=== PATIENT | male | born 1955 | race Caucasian/White ===

== ENCOUNTER 2023-06-21 10:49 | Observation (INO) ==
[2023-06-21] MEDS: SODIUM CHLORIDE 0.9% 1,000 ML IV ONE (11:43)
[2023-06-21 11:45] LABS: Albumin Globulin Ratio 1.6 (0.9-2); Albumin Level 4.3 gm/dl (3.4-5.0); BUN Creatinine Ratio 11.1 (10-20); Bilirubin,Total 0.6 mg/dl (0.2-1.0); Calcium 9.2 mg/dl (8.6-10.3); Est GFR (African American) 81.9 ml/min; Est GFR (Non-African American) 70.6 ml/min; Globulin 2.7 gm/dl (2.5-4.0); Magnesium 2.1 mg/dl (1.7-2.4)
--- NOTE | 2023-06-21 11:47 | Emergency Department Note ---
Impression & Plan Syncope, Dizziness, Hyponatremia ED Provider Note NAME: DOMONIQUE MAHER AGE: 68 SEX: M : 1955 ARRIVES VIA: Ambulance INFORMANT: [Patient] ED PROVIDER(S): [Modesto Alfonso MD] CHIEF COMPLAINT: Syncope HISTORY OF PRESENT ILLNESS: The patient is a 68-year-old male who was sitting and having breakfast at a sporting event. He began to feel lightheaded and clammy. This all started about an hour ago. He eventually lost his consciousness and was helped to the ground by a bystander. As per the outpatient records, no pulse could be found and CPR was initiated. As per his , only a few compressions were done. Shortly thereafter, a pulse was felt. The patient woke up on the floor. He denies any chest pain or shortness of breath. He has felt well lately. He does admit to some increased stress the last few months. His mother in March and he has been dealing with the estate. Patient has no history of heart disease. He does have high blood pressure and high cholesterol. He takes medications daily for these 2 issues. He is not on blood thinning agents other than a baby aspirin. The patient did have a sinus infection 2 weeks ago, he was on doxycycline for around 10 days. PMHx/PSHx/Social Hx: See Below PHYSICAL EXAM: GENERAL: Patient is in no acute distress. HEENT: No acute trauma, normocephalic atraumatic, mucous membranes moist, no nasal congestion. NECK: No stridor, no adenopathy, no meningismus, trachea is midline. LUNGS: Clear to auscultation bilaterally, no wheeze, no rhonchi, breath sounds equal. HEART: Subtle systolic murmur, regular rate and rhythm. ABDOMEN: Soft, nontender, no peritonitis. EXTREMITIES: No cyanosis, full range of motion of all the joints without pain or difficulty. NEUROLOGIC: Oriented x 3, no acute motor or sensory deficits, no focal weakness. SKIN: No jaundice, no diaphoresis. DIFFERENTIAL DIAGNOSIS: Vasovagal syncope, IL, anemia, electrolyte imbalance, dehydration, dysrhythmia, among others. EMERGENCY DEPARTMENT PROCEDURES: MEDICAL DECISION MAKING: There is no leukocytosis. A very mild anemia was seen. There was a normal platelet count. No coagulopathy. Sodium was low at 129, no renal failure. No concerning liver enzyme elevation. The patient appeared to be in a euthyroid state. ECG showed a normal sinus rhythm, no dysrhythmia or acute ischemia. Cardiac enzyme testing x 1 is not consistent with acute cardiac injury. Urinalysis does not show infection. COVID, influenza and RSV test were negative. Chest x-ray did not show mediastinal widening, pneumonia or pneumothorax. On exam, the patient was without complaints and resting comfortably. Patient received IV saline, 1 L. The patient presents with a syncopal spell out outside of the hospital. Initially, standard did not feel he had a pulse and they did do a brief round of chest compressions. Given the presentation, given the history prehospital, the patient does require a hospital stay and cardiac monitoring. I spoke with the patient and case management, the on-call hospitalist was consulted. Prior/Outside records/notes reviewed: Today's EMS notes describing his presentation and transport to this hospital. ECG per my interpretation: Indication was syncope. The ECG shows a normal sinus rhythm with some sinus arrhythmia. The rate is 69. There is no ST elevation, no PVCs. The QTc is 409. Continuous Cardiac Monitoring per my interpretation: An order was placed for continuous cardiac monitoring. The monitor shows a rate of 68 with normal sinus rhythm. Imaging/x-ray results per my interpretation: Chest x-ray does not show mediastinal widening, pneumonia or pneumothorax. Chronic Medical/Social conditions affecting care: Care/Management discussed with: Case management and the on-call hospitalist. Level of care consideration(s): After review of the information above and other included data: --I believe the patient requires escalation of care to admission DISPOSITION: Admission Past Med/Surg History Medical History Ocular hypertension Hypotestosteronism Left ankle swelling BPH (benign prostatic hyperplasia) Idiopathic small fiber sensory neuropathy Hypercholesteremia Hypertension Social History Smoking Status: Never smoker Hx Alcohol Use: No Hx Substance Use: No Preferred Language: [place] Communication Ability: Effective Superintendent [employer] Storage Required: No Beliefs That Will Affect Care: None Current Living Situation: Spouse Other Information That Helps Us Care for You: No Feels Safe at Home: Yes Safety Concerns: Feels Safe At This Time Assistive Devices: Glasses Allergies Allergies Allergy/AdvReac Type Severity Reaction Status Date / Time No Known Allergies Allergy Unverified 06/21/23 10:56 Home Meds Home Medications Medication Instructions Recorded Confirmed lactobacillus combination no.4 3 3,000 mmu cells PO QAM 06/21/23 06/21/23 billion cell capsule (Probiotic) lisinopril 40 mg tablet 40 mg PO 06/21/23 06/21/23 simvastatin 20 mg tablet 20 mg PO QAM 06/21/23 06/21/23 tamsulosin 0.4 mg capsule 0.8 mg PO 06/21/23 06/21/23 testosterone 2 pump topical [facility] 06/21/23 06/21/23 travoprost 0.004 % eye drops 1 drp OPB 06/21/23 06/21/23 ursodiol 300 mg capsule 300 mg PO TID 06/21/23 06/21/23 Results & Data (ED) Vital Signs Vital Signs - 24 hr 06/21/23 10:53 06/21/23 11:04 06/21/23 11:11 Temperature 36.5 C Temperature Source Oral Pulse Rate 69 69 68 Pulse Rate from SpO2 Sensor 72 Respiratory Rate 18 17 Blood Pressure 172/96 H Blood Pressure Mean 121 Blood Pressure Position Sitting Pulse Oximetry 97 97 Oxygen Delivery Method Room Air Sepsis Recent Fever Within 48 Hours No Sepsis New/Unexplained Change in Mental Status No Sepsis Action Taken by Nursing No Action Required 06/21/23 11:30 06/21/23 11:30 06/21/23 12:00 Temperature Temperature Source Pulse Rate 72 68 Pulse Rate from SpO2 Sensor 71 68 Respiratory Rate 13 15 Blood Pressure 155/98 H Blood Pressure Mean 116 Blood Pressure Position Pulse Oximetry 96 97 Oxygen Delivery Method Sepsis Recent Fever Within 48 Hours Sepsis New/Unexplained Change in Mental Status Sepsis Action Taken by Nursing 06/21/23 12:30 06/21/23 12:30 Temperature Temperature Source Pulse Rate 64 Pulse Rate from SpO2 Sensor 64 Respiratory Rate 16 Blood Pressure 154/95 H Blood Pressure Mean 102 Blood Pressure Position Pulse Oximetry 97 Oxygen Delivery Method Sepsis Recent Fever Within 48 Hours Sepsis New/Unexplained Change in Mental Status Sepsis Action Taken by Prison Medications Current Medication List: was personally reviewed by me Laboratory Data Attestation: I reviewed the patient's lab results. 06/21/23 11:57 06/21/23 11:03 Lab Results 06/21/23 06/21/23 06/21/23 Range/Units 11:03 11:17 11:57 WBC 6.92 (4.8-10.8) K/ul RBC 4.64 L (4.70-6.10) M/uL Hgb 13.9 L (14.0-18.0) g/dl Hct 41.5 L (42.0-52.0) % MCV 89.4 (80.0-100.0) fL MCH 30.0 (25.0-34.0) pg MCHC 33.5 (32.0-36.0) g/dL RDW Std Deviation 42.0 (36.4-46.3) fL RDW Coeff of Stefano 12.7 (11.5-14.5) % Plt Count 296 (130-400) K/uL MPV 10.2 (9.4-12.4) fL Immature Gran % (Auto) 0.3 % Neut % (Auto) 71.0 % Lymph % (Auto) 17.8 % Pettis % (Auto) 9.7 % Eos % (Auto) 0.6 % Baso % (Auto) 0.6 % Neut # (Auto) 4.92 (1.40-6.50) K/uL Lymph # (Auto) 1.23 (1.20-3.40) K/uL [place]is # (Auto) 0.67 H (0.11-0.59) K/uL Eos # (Auto) 0.04 (0.00-0.50) K/uL Baso # (Auto) 0.04 (0.00-0.20) K/uL Immature Gran # (Auto) 0.02 (0.01-0.20) K/uL PT 10.8 (9.0-12.0) Seconds INR 1.0 (0.9-1.1) APTT 27 (21-31) Seconds PTT Ratio 1.0 Sodium 129 L (136-145) mmol/L Potassium 4.0 (3.5-5.1) mmol/L Chloride 97 L (98-107) mmol/L Carbon Dioxide 26 (21-32) mmol/L Anion Gap 6 (3-11) BUN 12 (6-23) mg/dl Creatinine 1.08 (0.6-1.4) mg/dl Est Cr Clr Drug Dosing 70.0 ml/min Est GFR ( Amer) 81.9 ml/min Est GFR (Non-Af Amer) 70.6 ml/min BUN/Creatinine Ratio 11.1 (10-20) Glucose 116 H (70-99(Fasting)) mg/dl Osmolality 273 L (280-300) mOsm/kg Calcium 9.2 (8.6-10.3) mg/dl Magnesium 2.1 (1.7-2.4) mg/dl Total Bilirubin 0.6 (0.2-1.0) mg/dl AST 19 (13-39) U/L ALT 17 (7-52) U/L Alkaline Phosphatase 40 (34-104) U/L Troponin I High Sens 7.3 (0-20) pg/ml Total Protein 7.0 (6.0-8.3) gm/dl Albumin 4.3 (3.4-5.0) gm/dl Globulin 2.7 (2.5-4.0) gm/dl Albumin/Globulin Ratio 1.6 (0.9-2) TSH 2.106 (0.300-4.500) uIu/ml SARS-CoV-2 (PCR) NEGATIVE (Negative) Influenza Type A (PCR) Negative (Neg) Influenza Type B (PCR) Negative (Neg) RSV (RT-PCR) Negative (Neg) Administered Medications Discontinued Medications Sodium Chloride (Nss) 1,000 mls @ 999 mls/hr IV .Q1H1M ONE Stop: 06/21/23 12:12 Last Infusion: 06/21/23 12:54 Dose: Infused Documented By: Admin: 06/21/23 11:43 Dose: 999 mls/hr Documented By: [facility] Imaging Data Radiologist's Impression: Chest X-Ray 06/21/23 11:02 XR chest 1V portable CLINICAL HISTORY: Chest pain, nonspecific TECHNIQUE: Single frontal radiograph of the chest was obtained. Comparison: None available at the time of this dictation. FINDINGS: No lines and tubes are seen. The cardiomediastinal silhouette is normal. The lungs are clear. No evidence of pleural effusion or pneumothorax. IMPRESSION: No acute chest disease. ACT 112: Negative or not required by law. Electronically signed by: Didier Quezada M.D. 06/21/2023 11:49 AM Discharge Plan Visit Data Chief Complaint: Syncope ED Provider: Modesto Alfonso Discharge Problem: Syncope, Dizziness, Hyponatremia Patient Disposition: Admitted As Inpatient Condition: Good Discharge Instructions Interventions: ED Discharge Assessment Last Done: 06/21/23 15:30 Discharge Problem: Syncope Qualifiers: Syncope type: unspecified Qualified Code(s): R55 - Syncope and collapse
[2023-06-21 11:51] LABS: Troponin I High Sensitivity 7.3 pg/ml (0-20)
--- NOTE | 2023-06-21 11:51 | XRay Report ---
XR chest 1V portable CLINICAL HISTORY: Chest pain, nonspecific TECHNIQUE: Single frontal radiograph of the chest was obtained. Comparison: None available at the time of this dictation. FINDINGS: No lines and tubes are seen. The cardiomediastinal silhouette is normal. The lungs are clear. No evid ence of pleural effusion or pneumothorax. IMPRESSION: No acute chest disease. ACT 112: Negative or not required by law. Electronically signed by: Didier Quezada M.D. 06/21/2023 11:49 AM
[2023-06-21 11:55] LABS: Partial Thromboplastin Time 27 Seconds (21-31); Prothrombin Time 10.8 Seconds (9.0-12.0)
[2023-06-21 12:14] LABS: Influenza A virus by PCR Negative (Neg); Influenza B virus by PCR Negative (Neg); RSV by PCR Negative (Neg); SARS CoV2 RNA(COVID-19) Ceph NEGATIVE (Negative)
[2023-06-21 12:25] LABS: Basophils # (auto) 0.04 K/uL (0.00-0.20); Basophils % (auto) 0.6 %; Eosinophils # (auto) 0.04 K/uL (0.00-0.50); Eosinophils % (auto) 0.6 %; Hematocrit (blood only) 41.5 % (42.0-52.0); Hemoglobin 13.9 g/dl (14.0-18.0); Immature Granulocytes # (auto) 0.02 K/uL (0.01-0.20); Immature Granulocytes % (auto) 0.3 %; Lymphocytes # (auto) 1.23 K/uL (1.20-3.40); Lymphocytes % (auto) 17.8 %; Mean Corpuscular Hgb Conc 33.5 g/dL (32.0-36.0); Mean Corpuscular Volume 89.4 fL (80.0-100.0); Mean Platelet Volume 10.2 fL (9.4-12.4); Monocytes # (auto) 0.67 K/uL (0.11-0.59); Monocytes % (auto) 9.7 %; Neutrophils # (auto) 4.92 K/uL (1.40-6.50); Platelet Count 296 K/uL (130-400); RDW Coefficient of Variation 12.7 % (11.5-14.5); Red Blood Count 4.64 M/uL (4.70-6.10); White Blood Count 6.92 K/ul (4.8-10.8)
--- NOTE | 2023-06-21 13:26 | History & Physical Report ---
Date of Service June 21, 2023 Assessment & Plan (1) Cardiac arrest: Plan: Low probability of true cardiac arrest however he received 4 chest compressions therefore monitor overnight on telemetry (2) Syncope and collapse: Plan: TTE Monitor on telemetry overnight Suspect vasovagal episode most likely related to increased stress, insomnia, eating breakfast (3) Hyponatremia: Plan: Na 129, patient reports chronicically in low 130s therefore low suspicion this is causing any current problem (4) Hypertension: Plan: Continue lisinopril (5) Hypercholesteremia: Plan: Continue simvastatin (6) BPH (benign prostatic hyperplasia): Plan: Continue tamsulosin (7) Hypotestosteronism: Plan: Continue testosterone (8) Ocular hypertension: Plan: Continue travoprost (9) Idiopathic small fiber sensory neuropathy: Plan VTE prophylaxis - low risk Diet - heart healthy Disposition - admit to PCU Admission and Anticipated Discharge Date Admission Date: June 21, 2023 History of Present Illness Chief Complaint: Syncope, CPR Primary Care Provider: NO PCP Manolo Arguelles is a 68-year-old male who presents to the ER due to a syncopal episode. He was sitting at the table with his having breakfast when he started feeling lightheaded and close his arms on the table for a few seconds. When he lifted up his head he appeared clammy to his and he put his head down again. The next thing he knew he was waking up on the floor and does remember falling to the floor from his chair. He knew where he was but was unsure what happened. His reports she saw his eyes moving funny and he slid off the chair. They were at a wrestling match and assistive technology trainer who knew first-aid checked for a carotid pulse and did not feel 1 therefore performed 4-5 chest compressions and the patient woke up. He currently feels back to his normal self. He was treated for a sinus infection 2 weeks ago with 10 days of antibiotics but feels like he completely recovered from this infection and no current respiratory, gastrointestinal, urinary symptoms. No significant history of syncopal events. His sodium is 129 in the emergency room. He reports this is not unusual for him but has no specific diagnosis explaining his hyponatremia but reports it is chronic usually running around low 130s. Allergies Allergy/AdvReac Type Severity Reaction Status Date / Time No Known Allergies Allergy Unverified 06/21/23 10:56 Home Medications Medication Instructions Recorded Confirmed Type lactobacillus combination no.4 3 3,000 mmu cells PO QAM 06/21/23 06/21/23 History billion cell capsule (Probiotic) lisinopril 40 mg tablet 40 mg PO HS 06/21/23 06/21/23 History simvastatin 20 mg tablet 20 mg PO QAM 06/21/23 06/21/23 History tamsulosin 0.4 mg capsule 0.8 mg PO HS 06/21/23 06/21/23 History testosterone 2 pump topical QA 06/21/23 06/21/23 History travoprost 0.004 % eye drops 1 drp OPB HS 06/21/23 06/21/23 History ursodiol 300 mg capsule 300 mg PO TID 06/21/23 06/21/23 History Past Med/Surg History Medical History (Updated 06/21/23 @ 18:30 by Hill Kennedy MD) Hyponatremia Ocular hypertension Hypotestosteronism Left ankle swelling BPH (benign prostatic hyperplasia) Idiopathic small fiber sensory neuropathy Hypercholesteremia Hypertension Social History Smoking Status: Never smoker Hx Alcohol Use: No Hx Substance Use: No Preferred Language: Japanese Communication Ability: Effective 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 Beliefs That Will Affect Care: None Current Living Situation: Spouse Other Information That Helps Us Care for You: No Feels Safe at Home: Yes Safety Concerns: Feels Safe At This Time Assistive Devices: Glasses Review of Systems Review of Systems: All systems reviewed & are unremarkable except as noted in HPI & below Physical Exam Constitutional: WD/WN, vitals as above Eyes: PERRL, conjunctivae normal, anicteric sclerae ENMT: external ear and nose normal, oropharynx normal Respiratory: normal respiratory effort, lungs clear to auscultation Cardiovascular: RRR, no murmur, no edema Gastrointestinal (Abdomen): normal bowel sounds, soft, nontender, no hepatosplenomegaly Musculoskeletal: no cyanosis or clubbing, extremities motor strength 5/5 Skin: no rashes, warm and dry Neurologic: moves all extremities and awake; not confused Psychiatric: A+Ox3, euthymic affect Genitourinary: no CVA tenderness Results & Data Results & Data Vital Signs (Past 12 Hours) Vital Signs Temp Pulse Resp BP Pulse Ox O2 Del Method 06/21/23 11:11 68 06/21/23 10:53 36.5 C 69 18 172/96 H 97 Room Air Laboratory Results Abnormal lab results 06/21/23 06/21/23 06/21/23 Range/Units 11:03 11:57 14:45 RBC 4.64 L (4.70-6.10) M/uL Hgb 13.9 L (14.0-18.0) g/dl Hct 41.5 L (42.0-52.0) % [place] # (Auto) 0.67 H (0.11-0.59) K/uL Sodium 129 L (136-145) mmol/L Chloride 97 L (98-107) mmol/L Glucose 116 H (70-99(Fasting)) mg/dl Osmolality 273 L (280-300) mOsm/kg Urine Osmolality 108 L (500-800) mOsm/kg Diagnostic Findings XR chest 1V portable CLINICAL HISTORY: Chest pain, nonspecific TECHNIQUE: Single frontal radiograph of the chest was obtained. Comparison: None available at the time of this dictation. FINDINGS: No lines and tubes are seen. The cardiomediastinal silhouette is normal. The lungs are clear. No evidence of pleural effusion or pneumothorax. IMPRESSION: No acute chest disease. Medications Administered ER medications given: Normal saline 1 L bolus ECG Rate (beats per minute): 69 Rhythm: sinus with SA Findings: no acute ischemic change Comparison ECG Date: no prior available Code Status & VTE Plan Code Status Full VTE Prophylaxis Plan VTE Prophylaxis will be ordered: No PG Care Time/CCT Total # of Minutes Spent Total Time Spent with Patient: Total time spent is greater than 50% in coordination of care (as documented) at patient's floor/unit and/or counseling patient: Coding Level of Care Code 40980 INT INP/OBS CARE 3/75MIN Diagnoses Cardiac arrest I46.9 Syncope and collapse R55 Hyponatremia E87.1 Hypertension I10 Hypercholesteremia E78.00 BPH (benign prostatic hyperplasia) N40.0 Hypotestosteronism E34.9 Ocular hypertension H40.059 Idiopathic small fiber sensory neuropathy G60.8
[2023-06-21 13:57] LABS: Thyroid Stimulating Hormone 2.106 uIu/ml (0.300-4.500)
[2023-06-21 15:03] LABS: Appearance Urine Clear (Clear); Bilirubin Urine Negative (Negative); Blood Urine Negative (Negative); Color Urine Yellow; Glucose Urine UA Negative (Negative); Ketones Urine Negative (Negative); Leukocyte Esterase Urine Negative (Negative); Nitrite Urine Negative (Negative); Protein Urine Negative (Negative); Specific Gravity Urine 1.003 (1.000-1.030); Urobilinogen Urine Negative (Negative)
--- OUTSIDE RECORDS SUMMARY | 2023-06-21 15:54 | External Medical Summary | Continuity of Care Document ---
Author Name Unknown Organization [facility] Address [address] [place] [address] Phone [phone] Problems Active Problems Provider Date Hyperlipidemia Shubham Leal, DO Onset: 1 03/23/2012 Essential hypertension Jose Miller DO O nset: 05/19/2016 Gastroesophageal reflux disease Jose rosales, DO Onset: 05/19/2016 Decreased testosterone level Jose Miller , DO Onset: 05/19/2016 Mixed hyperlipidemia Jose Miller DO Ons et: 07/03/2016 Testicular hypofunction Jose Miller, DO Onset: 07/03/2016 Benign prostatic hyperplasia with outflow obstruction Jose Miller, DO Onset: 11/10/2016 Polyneuropathy Jose Miller, DO Onset: 1 04/11/2017 Metatarsalgia Jose Miller, DO Onset: 04/11/2017 Degeneration of lumbar intervertebral disc Gilberto henrry Miller, DO Onset: 03/23/2018 Thoracic and lumbosacral neuritis Jose mcdowell, DO Onset: 04/02/2018 Lumbosacral radiculopathy Aime Sibley O Onset: 04/28/2018 Lumbar radiculopathy Jose Miller DO Ons et: 05/05/2018 Spinal stenosis of lumbar region Jose richey, DO Onset: 05/05/2018 Paresthesia Jose Miller, DO Onset: 0 05/05/2018 Other idiopathic peripheral autonomic neuropathy Jose Miller, DO Onset: 05/12/2018 Radiculopathy due to lumbar intervertebral disc disorder Jose Miller DO Onset: 05/28/2018 Gallstone Jose Miller DO Onset: 1 03/29/2021 Disorder of hyperalimentation Jose servin DO Onset: 02/01/2019 Social History Type Date Description Comments Sex Unknown Tobacco Use Reviewed: 03/26/23 Never Smoked Cigarettes Tobacco Use Reviewed: 03/26/23 Never Smoked Cigars Tobacco Use Reviewed: 03/26/23 Never Smoked A Pipe Smoking Status Reviewed: 06/03/23 Never Smoked A Pipe Smokeless Tobacco 03/26/2023 Never Used Smo keless Tobacco ETOH Use 02/02/2015 Occasionally con sumes alcohol Recreational Drug Use 02/02/2015 Never Used Drugs Enjoy Exercising Enjoys exercising Gym wo rkout 3-4 times a week. Exercise Type/Frequency 02/02/2015 Exercises regular ly Allergies and adverse reactions Description No Known Drug Allergies Medications Active Medications SIG Qnty Indications Order ing Provider Date Doxycycline [id number] Tablets one tablet twice a day for 10 days 20tabs J01.00 Jose Miller, DO 06/03/2023 Testosterone1.62% Gel Apply 2 Pumps Topically Once Daily as Directed 75units E29.1 Jose Miller, DO 01/21/[address] Take 1 Capsule Daily 90caps K21.9 Jose Miller, DO 06/17/2021 Cmpujjfjcg66sy Tablets Take 1 Tablet Daily 90tabs I10 Jose Miller, DO 11/09/2018 Aspir-8181mg Tablets DR 1 po qd Mayra Leal, DO Travatan Z0.004% Solution Unknown ProbioticCapsules 1 by mouth every day 30caps Jose Miller, DO Tamsulosin HCL0.4mg Capsules Take 2 Capsules Daily 180caps N40.1 Jose Miller, DO Ikodlsfpfyy93pr Tablets Take 1 Tablet Daily 90tabs E78.2 Jose Miller, DO Sshwmsozp0ry Tablets 1 tab po daily N40.1 Unkn own Gaviscon Extra Tnldvvdd949-409al Chewtabs Unknown Moinjtnd364qy Capsules 1 capsule tid K80.20 Unk nown History Medications Paxlovid (300/100)20x 150 mg & 10 x 100mg TBPK one dose by mouth (including ritonavir) per pack instructions x 5 days 30units U07.1 Jose Miller, DO 03/18/2023 - 03/26/2023 Immunizations CPT Code Status Date Vaccine Lot # [id number] Given 12/26/2022 Shingrix 14993 Given 09/30/2022 Shingrix 28811 Given 03/06/2021 Moderna Sars-Co v-2 (Cov-19) vacc,100 mcg/ 0.5 mL 12Y+EMR Doc Only 31473 Given 08/28/2020 Moderna Sars-Co v-2 (Cov-19) vacc,100 mcg/ 0.5 mL 12Y+EMR Doc Only 50865 Given 07/31/2020 Moderna Sars-Co v-2 (Cov-19) vacc,100 mcg/ 0.5 mL 12Y+EMR Doc Only 78997 Given 07/14/2017 Tdap (Tetanus, diphtheria & acel. pertussis) Adacel or Boostrix [id number] Refused 02/17/2023 Influenza Vac, Split, Preservative Free High Dose Age 65 & > 70834 Refused 01/27/2022 Influenza Vac, Split, Preservative Free High Dose Age 65 & > 04669 Refused 01/27/2022 Pneumococcal Conjugate-Pr evnar 20 41683 Refused 01/23/2021 Influenza Vaccine High Do se 0.5ML Age 65 & > 90645 Refused 01/23/2021 Pneumococcal Conjugate-Pr evnar 13 53470 Refused 07/10/2020 Moderna Sars-Co v-2 (Cov-19) vacc,100 mcg/ 0.5 mL 12Y+EMR Doc Only 96591 Refused 11/29/2019 Influenza Virus Vaccine, Quadrivalent, Im Use 35561 Refused 10/15/2018 Influenza Virus Vaccine, Quadrivalent, Im Use 74122 Refused 11/27/2017 Influenza Virus Vaccine, Quadrivalent, Im Use 30831 Refused 11/10/2016 Influenza Virus Vaccine, Quadrivalent, Im Use 52856 Refused 02/04/2016 Influenza Virus Vaccine, Quadrivalent, Im Use 90723 Refused 02/02/2015 Influenza Virus Vaccine, Quadrivalent, Im Use 97775 Refused 04/25/2014 Influenza Virus Vaccine, Quadrivalent, Im Use 80401 Refused 01/27/2014 Influenza Virus Vaccine, Quadrivalent, Im Use Vital Signs Date Vital Result Comment 06/03/2023 1:21pm BP Systolic 132 mmHg BP Diastolic 84 mmHg Body Temperature 97.7 F Heart Rate 84 /min Respiratory Rate 13 /min Weight 200.00 lb Weight 90.720 kg 03/26/2023 3:09pm BP Systolic 138 mmHg BP Diastolic 84 mmHg Body Temperature 97.1 F Heart Rate 107 /min Respiratory Rate 14 /min Weight 192.25 lb Weight 87.205 kg Height 69.25 inches 5'9.25" BMI (Body Mass Index) 28.2 kg/m2 [place] Body Weight 160 lb Results Test Acquired Date Facility Test Result H/L Range N ote Laboratory test finding 06/03/2023 [facility] (In Office Test) Sars Antigen - In Office negative Laboratory test finding 02/17/2023 [facility]. [address] [place] [address] Total Testoster 532 ng/dL 199-1586 1 CBC W/Diff 02/17/2023 [facility]. [address] [place] [address] [phone] WBC 6.1 10^3/M3 3.1-9.2 RBC 4.99 10^6/M3 4.00-5.80 HGB 15.8 GR/DL 12.5-17.5 HCT 46.2 % 37.5-52.5 MCV 92.6 CUMICR 82.6-95.8 MCH 31.8 PICOGR 27.9-32.9 MCHC 34.3 % 32.6-35.4 RDW 13.5 % 11.4-14.6 PLT 248 10^3/M3 140-350 MPV 9.3 CUMICR 7.0-10.6 %Neut 45.9 % 40.0-75.0 %Lymph 41.5 % 17.0-45.0 %Sharp 10.7 % 1.0-11.0 %Eos 1.3 % 0.0-6.0 %Baso 0.6 % 0.0-2.0 #Neut 2.8 10^3/M3 1.5-8.0 #Lymph 2.5 10^3/M3 0.8-3.2 #Sharp 0.7 10^3/M3 0.0-0.8 #Eos 0.1 10^3/m3 0.0-0.4 #Baso 0.0 10^3/m3 0.0-0.2 Comp. Met 02/17/2023 [facility]. [address] [place], [place] [address] [phone] Glucose 102 mg/dL 70-110 BUN 13 mg/dL 6-25 Creatinine 1.1 mg/dL 0.7-1.3 Sodium 133 mEq/L Low 135-145 Potassium 4.9 mEq/L 3.5-5.0 Chloride 98 mEq/L 95-107 Co-2 28 mEq/L 24-31 Alk Phos 41 IU/L Low 43-122 Alt(SGPT) 15 IU/L 10-40 Ast(Sgot) 17 IU/L 3-42 T.Bilirubin 0.5 mg/dL 0.1-1.3 Calcium 9.6 mg/dL 8.5-10.6 Tot.Protein 7.2 g/dL 5.8-8.0 Albumin 4.7 g/dL 3.0-5.2 Globulin 2.5 g/dL 2.0-3.4 GFR 71 ML/MIN/1.73SQM >60 Lipid 02/17/2023 [facility]. [address] [place], [place] [address] [phone] Cholesterol 175 mg/dL 0-200 2 Triglyceride 71 mg/dL 0-150 3 HDLD 63 mg/dL See Comment 4 Measured LDL 97 mg/dL 0-130 5 Calc VLDL 14.2 mg/dL See Comment 6 Chol/HDL 2.8 RATIO See Comment 7 Non-HDL 112 mg/dL See Comment 8 1 FASTING 2 CHOLESTEROL Less than 200mg/dl Low risk 201-239 mg/dl Borderline risk Equal to or greater 240mg/dl High risk 3 TRIGLYCERIDES Less than 150mg/dl Normal 150-199mg/dl Borderline 200-499mg/dl High Greater than 500mg/dl Very High 4 HDL <40mg/dl Elevated Risk 41-59mg/dl Risk >=60mg/dl Least Risk 5 LDL <100mg/dl Optimal 100-129mg/dl Near Optimal 130-159mg/dl Borderline High 160-189mg/dl High >=190 Very High 6 VLDL Less than 30mg/dl Normal 7 CHOL/HDL <4.0 Optimal 4.0-5.0 Borderline >6.0 High Risk 8 NON-HDL 30mg/dl higher than LDL Target Procedures Date Code Description Status 03/26/2023 G2211 Continuation of care e/m vis it add on Completed 02/17/2023 44881 Venipuncture Routine Complet ed 02/17/2023 3079F PVRP Diastolic BP 80-89 MMHG Completed 02/17/2023 3074F PVRP Systolic BP <130 mmHg C ompleted 08/20/2021 [id number] Colonoscopy Completed Medical Devices Description No Information Available Encounters Type Date Location Provider Dx Diagnosis Office Visit 06/03/2023 1:30p [facility] Liliana Coker PA-C J01.00 Acute maxillary sinusitis, unspecified R05.1 Acute cough Office Visit 03/26/2023 3:30p [facility] Jose Miller, DO R22.32 Localized swelling, mass and lump, left upper limb M79.642 Pain in left hand Office Visit 03/18/2023 10:30a [facility] Liliana Coker PA-C U07.1 Covid-19 Office Visit 02/17/2023 8:30a [facility] Jose Miller DO N40.1 Benign prostatic hyperplasia with lower urinary tract symp 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 Essential (primary) hypertension E78.2 Mixed hyperlipidemia M51.36 Other intervertebral disc degeneration, lumbar region G90.09 Other idiopathic per ipheral autonomic neuropathy K21.9 Gastro-esophageal re flux disease without esophagitis K80.20 Calculus of gallblad fior w/o cholecystitis w/o obstruction Assessments Date Code Description Provider 06/03/2023 J01.00 Acute maxillary sinusitis, u nspecified Liliana Coker PA-C 06/03/2023 R05.1 Acute cough SOBIA Leonard 03/26/2023 R22.32 Localized swelli ng, mass and lump, left upper limb Jose Miller, DO 03/26/2023 M79.642 Pain in left hand Jose Miller, DO 03/18/2023 U07.1 Covid-19 SOBIA Leonard 02/17/2023 I10 Essential (primary) hyperten terry Jose Miller, DO 02/17/2023 N40.1 Benign prostatic hyperplasia with lower urinary tract symptoms Jose Miller, DO 02/17/2023 E29.1 Testicular hypofunction Bryce martell Latesha Miller, DO 02/17/2023 I10 Essential (primary) hyperten terry Jose Miller, DO 02/17/2023 E78.2 Mixed hyperlipidemia Jose Miller, DO 02/17/2023 M51.36 Other interverte bral disc degeneration, lumbar region Jose Miller, DO 02/17/2023 G90.09 Other idiopathic peripheral autonomic neuropathy Jose Miller, DO 02/17/2023 K21.9 Gastro-esophagea l reflux disease without esophagitis Jose Miller, DO 02/17/2023 K80.20 Calculus of gall bladder without cholecystitis without obstruction Jose Miller, Plan of Treatment Future Appointment(s):* 06/30/2023 9:00 am - Jose Miller DO at [facility] 06/03/2023 - Liliana Coker PA-C* J01.00 Acute maxillary sinusitis, unspecified* New Medication:* Doxycycline Hyclate 100 mg - one tablet twice a day for 10 days * Comments:* e/se doxy discussed consider CXR, steroids, inhaler if no improvement in chest sxs * Follow up:* prn worsening or no improvement * Recommendations:* - Take full course of antibiotics as prescribed, even if feeling better! - If no improvement, please call us - Try some warm compresses to your face a few times a day - Tylenol as needed for pain, achiness - Avoid dairy while on antibiotics/can make sinus drainage worse - Ok to use nasal saline spray, flonase to help * R05.1 Acute cough* Recommendations:* Can take mnol-qwx-oyqvvri cough medicine for this - HBP labels only - Coricidin HBP If no improvement please call us Watch your blood pressure with cough medicine Good oral intake - lots of fluids! Water, Gatorade, Pedialyte etc Start antibiotic as discussed Call any worsening Functional Status Description No Information Available Mental Status Description No Information Available Referrals Description No Information Available
--- OUTSIDE RECORDS SUMMARY | 2023-06-21 15:54 | External Medical Summary | Continuity of Care Document ---
Author Name Unknown Organization [facility] Address [address] [place] [address] Phone [phone] Problems Active Problems Provider Date Hyperlipidemia Shubham [...] Qnty Indications Order ing Provider Date Doxycycline Ptbqhpf252kn Tablets one tablet twice a day for 10 days 20tabs J01.00 Jose Miller, DO 06/03/2023 Testosterone1.62% Gel Apply 2 Pumps Topically Once Daily as Directed 75units E29.1 Jose Miller, DO 01/21/[address] Take 1 Capsule Daily 90caps K21.9 Jose Miller, DO 06/17/2021 Yekquaapiv15cv Tablets Take 1 Tablet Daily 90tabs I10 Jose Miller, DO 11/09/2018 Aspir-8181mg Tablets DR 1 po qd Mayra Leal, DO Travatan Z0.004% Solution Unknown ProbioticCapsules 1 by mouth every day 30caps Jose Miller, DO Tamsulosin HCL0.4mg Capsules Take 2 Capsules Daily 180caps N40.1 Jose Miller, DO Tbnzlgsycci57cf Tablets Take 1 Tablet Daily 90tabs E78.2 Jose Miller, DO Btwvglmzn4gt Tablets 1 tab po daily N40.1 Unkn own Gaviscon Extra Wdhdhidk423-388ro Chewtabs Unknown Xkvymlyf868ot Capsules 1 capsule tid K80.20 Unk nown History Medications Paxlovid (300/100)20x 150 mg & 10 x 100mg TBPK one dose by mouth (including ritonavir) per pack instructions x 5 days 30units U07.1 Jose Miller, DO 03/18/2023 - 03/26/2023 Immunizations CPT Code Status Date Vaccine Lot # [id number] Given 12/26/2022 Shingrix 03802 Given 09/30/2022 Shingrix 55294 Given 03/06/2021 Moderna Sars-Co v-2 (Cov-19) vacc,100 mcg/ 0.5 mL 12Y+EMR Doc Only 91407 Given 08/28/2020 Moderna Sars-Co v-2 (Cov-19) vacc,100 mcg/ 0.5 mL 12Y+EMR Doc Only 79021 Given 07/31/2020 Moderna Sars-Co v-2 (Cov-19) vacc,100 mcg/ 0.5 mL 12Y+EMR Doc Only 38075 Given 07/14/2017 Tdap (Tetanus, diphtheria & acel. pertussis) Adacel or Boostrix [id number] 68300 Refused 02/17/2023 Influenza Vac, Split, Preservative Free High Dose Age 65 & > 93467 Refused 01/27/2022 Influenza Vac, Split, Preservative Free High Dose Age 65 & > 66383 Refused 01/27/2022 Pneumococcal Conjugate-Pr evnar 20 62771 Refused 01/23/2021 Influenza Vaccine High Do se 0.5ML Age 65 & > 09212 Refused 01/23/2021 Pneumococcal Conjugate-Pr evnar 13 70523 Refused 07/10/2020 Moderna Sars-Co v-2 (Cov-19) vacc,100 mcg/ 0.5 mL 12Y+EMR Doc Only 70386 Refused 11/29/2019 Influenza Virus Vaccine, Quadrivalent, [place] Use 92116 Refused 10/15/2018 Influenza Virus Vaccine, Quadrivalent, Im Use 99799 Refused 11/27/2017 Influenza Virus Vaccine, Quadrivalent, Im Use 55729 Refused 11/10/2016 Influenza Virus Vaccine, Quadrivalent, Im Use 18458 Refused 02/04/2016 Influenza Virus Vaccine, Quadrivalent, Im Use 60543 Refused 02/02/2015 Influenza Virus Vaccine, Quadrivalent, Im Use 46444 Refused 04/25/2014 Influenza Virus Vaccine, Quadrivalent, Im Use 15452 Refused 01/27/2014 Influenza Virus Vaccine, Quadrivalent, Im [...] 5'9.25" BMI (Body Mass Index) 28.2 kg/m2 [place] Body Weight 160 lb Results Test Acquired Date Facility Test Result H/L Range N ote Laboratory test finding 06/03/2023 [facility] (In Office Test) Sars Antigen - In Office negative Laboratory test finding 02/17/2023 [facility]. [address] [place] [address] [phone] Total Testoster 532 ng/dL 199-1586 1 CBC W/Diff 02/17/2023 [facility]. [address] [place] [address] WBC 6.1 10^3/M3 3.1-9.2 RBC 4.99 10^6/M3 4.00-5.80 HGB 15.8 GR/DL 12.5-17.5 HCT 46.2 % 37.5-52.5 MCV 92.6 CUMICR 82.6-95.8 MCH 31.8 PICOGR 27.9-32.9 MCHC 34.3 % 32.6-35.4 RDW 13.5 % 11.4-14.6 PLT 248 10^3/M3 140-350 MPV 9.3 CUMICR 7.0-10.6 %Neut 45.9 % 40.0-75.0 %Lymph 41.5 % 17.0-45.0 %[place] 10.7 % 1.0-11.0 %Eos 1.3 % 0.0-6.0 %Baso 0.6 % 0.0-2.0 #Neut 2.8 10^3/M3 1.5-8.0 #Lymph 2.5 10^3/M3 0.8-3.2 #Edgar 0.7 10^3/M3 0.0-0.8 #Eos 0.1 10^3/m3 0.0-0.4 #Baso 0.0 10^3/m3 0.0-0.2 Comp. Met 02/17/2023 [facility]. [address] [place], [place] [id number] [phone] Glucose 102 mg/dL 70-110 BUN 13 mg/dL [...] 2.0-3.4 GFR 71 ML/MIN/1.73SQM >60 Lipid 02/17/2023 [facility]. [address] [place], [place] [id number] [phone] Cholesterol 175 mg/dL 0-200 2 Triglyceride 71 [...] e/m vis it add on Completed 02/17/2023 88833 Venipuncture Routine Complet ed 02/17/2023 3079F PVRP Diastolic BP 80-89 MMHG Completed 02/17/2023 3074F PVRP Systolic BP <130 mmHg C ompleted 08/20/2021 [id number] Colonoscopy Completed Medical Devices Description No Information Available Encounters Type Date Location Provider Dx Diagnosis Office Visit 06/03/2023 1:30p [facility] Liliana Coker PA-C J01.00 Acute maxillary sinusitis, unspecified R05.1 Acute cough Office Visit 03/26/2023 3:30p [facility] Jose Miller, DO R22.32 Localized swelling, mass and lump, left upper limb M79.642 Pain in left hand Office Visit 03/18/2023 10:30a [facility] Liliana Coker PA-C U07.1 Covid-19 Office Visit 02/17/2023 8:30a [facility] Jose Miller DO N40.1 [...] 9:00 am - Jose Miller DO at [facility] 06/03/2023 - Liliana Coker PA-C* J01.00 Acute [...] * R05.1 Acute cough* Recommendations:* Can take usgt-oex-jydvcub cough medicine for this - HBP labels [...]
--- OUTSIDE RECORDS SUMMARY | 2023-06-21 15:54 | External Medical Summary | Continuity of Care Document ---
Author Name Unknown Organization [facility] Address [address] [place] [address] Phone [phone] Problems Active Problems Provider Date Hyperlipidemia Shubham [...] Qnty Indications Order ing Provider Date Doxycycline Kbxradt804mh Tablets one tablet twice a day for 10 days 20tabs J01.00 Jose Miller, DO 06/03/2023 Testosterone1.62% Gel Apply 2 Pumps Topically Once Daily as Directed 75units E29.1 Jose Miller, DO 01/21/[address] Take 1 Capsule Daily 90caps K21.9 Jose Miller, DO 06/17/2021 Kgkjkuunvx03bg Tablets Take 1 Tablet Daily 90tabs I10 Jose Miller, DO 11/09/2018 Aspir-8181mg Tablets DR 1 po qd Mayra Leal, DO Travatan Z0.004% Solution Unknown ProbioticCapsules 1 by mouth every day 30caps Jose Miller, DO Tamsulosin HCL0.4mg Capsules Take 2 Capsules Daily 180caps N40.1 Jose Miller, DO Tndbgzfiarf80pz Tablets Take 1 Tablet Daily 90tabs E78.2 Jose Miller, DO Xqxbnzmyu9zr Tablets 1 tab po daily N40.1 Unkn own Gaviscon Extra Jnnnzttw167-881oh Chewtabs Unknown Clhtinvb142bk Capsules 1 capsule tid K80.20 Unk nown History Medications Paxlovid (300/100)20x 150 mg & 10 x 100mg TBPK one dose by mouth (including ritonavir) per pack instructions x 5 days 30units U07.1 Jose Miller, DO 03/18/2023 - 03/26/2023 Immunizations CPT Code Status Date Vaccine Lot # [id number] Given 12/26/2022 Shingrix 43206 Given 09/30/2022 Shingrix 84113 Given 03/06/2021 Moderna Sars-Co v-2 (Cov-19) vacc,100 mcg/ 0.5 mL 12Y+EMR Doc Only 92140 Given 08/28/2020 Moderna Sars-Co v-2 (Cov-19) vacc,100 mcg/ 0.5 mL 12Y+EMR Doc Only 83583 Given 07/31/2020 Moderna Sars-Co v-2 (Cov-19) vacc,100 mcg/ 0.5 mL 12Y+EMR Doc Only 44485 Given 07/14/2017 Tdap (Tetanus, diphtheria & acel. pertussis) Adacel or Boostrix [id number] 83847 Refused 02/17/2023 Influenza Vac, Split, Preservative Free High Dose Age 65 & > 48621 Refused 01/27/2022 Influenza Vac, Split, Preservative Free High Dose Age 65 & > 94751 Refused 01/27/2022 Pneumococcal Conjugate-Pr evnar 20 96027 Refused 01/23/2021 Influenza Vaccine High Do se 0.5ML Age 65 & > 76773 Refused 01/23/2021 Pneumococcal Conjugate-Pr evnar 13 86864 Refused 07/10/2020 Moderna Sars-Co v-2 (Cov-19) vacc,100 mcg/ 0.5 mL 12Y+EMR Doc Only 78462 Refused 11/29/2019 Influenza Virus Vaccine, Quadrivalent, Im Use 83895 Refused 10/15/2018 Influenza Virus Vaccine, Quadrivalent, Im Use 73333 Refused 11/27/2017 Influenza Virus Vaccine, Quadrivalent, [place] Use 15007 Refused 11/10/2016 Influenza Virus Vaccine, Quadrivalent, Im Use 91370 Refused 02/04/2016 Influenza Virus Vaccine, Quadrivalent, Im Use 32199 Refused 02/02/2015 Influenza Virus Vaccine, Quadrivalent, Im Use 13373 Refused 04/25/2014 Influenza Virus Vaccine, Quadrivalent, Im Use 18149 Refused 01/27/2014 Influenza Virus Vaccine, Quadrivalent, Im [...] 5'9.25" BMI (Body Mass Index) 28.2 kg/m2 [place] Body Weight 160 lb Results Test Acquired Date Facility Test Result H/L Range N ote Laboratory test finding 06/03/2023 [facility] (In Office Test) Sars Antigen - In Office negative Laboratory test finding 02/17/2023 [facility]. [address] [place] [address] Total Testoster 532 ng/dL 199-1586 1 CBC W/Diff 02/17/2023 [facility]. [address] [place] [address] WBC 6.1 10^3/M3 3.1-9.2 RBC 4.99 10^6/M3 4.00-5.80 HGB 15.8 GR/DL 12.5-17.5 HCT 46.2 % 37.5-52.5 MCV 92.6 CUMICR 82.6-95.8 MCH 31.8 PICOGR 27.9-32.9 MCHC 34.3 % 32.6-35.4 RDW 13.5 % 11.4-14.6 PLT 248 10^3/M3 140-350 MPV 9.3 CUMICR 7.0-10.6 %Neut 45.9 % 40.0-75.0 %Lymph 41.5 % 17.0-45.0 %[place] 10.7 % 1.0-11.0 %Eos 1.3 % 0.0-6.0 %Baso 0.6 % 0.0-2.0 #Neut 2.8 10^3/M3 1.5-8.0 #Lymph 2.5 10^3/M3 0.8-3.2 #[place] 0.7 10^3/M3 0.0-0.8 #Eos 0.1 10^3/m3 0.0-0.4 #Baso 0.0 10^3/m3 0.0-0.2 Comp. Met 02/17/2023 [facility]. [address] [place], [place] 6[address] [phone] Glucose 102 mg/dL 70-110 BUN 13 mg/dL [...] 2.0-3.4 GFR 71 ML/MIN/1.73SQM >60 Lipid 02/17/2023 [facility]. [address] [place], [place] [id number] [phone] Cholesterol 175 mg/dL 0-200 2 Triglyceride 71 [...] e/m vis it add on Completed 02/17/2023 47818 Venipuncture Routine Complet ed 02/17/2023 3079F PVRP Diastolic BP 80-89 MMHG Completed 02/17/2023 3074F PVRP Systolic BP <130 mmHg C ompleted 08/20/2021 [id number] Colonoscopy Completed Medical Devices Description No Information Available Encounters Type Date Location Provider Dx Diagnosis Office Visit 06/03/2023 1:30p [facility] Liliana Coker PA-C J01.00 Acute maxillary sinusitis, unspecified R05.1 Acute cough Office Visit 03/26/2023 3:30p [facility] Jose Miller, DO R22.32 Localized swelling, mass and lump, left upper limb M79.642 Pain in left hand Office Visit 03/18/2023 10:30a [facility] Liliana Coker PA-C U07.1 Covid-19 Office Visit 02/17/2023 8:30a [facility] Jose Miller DO [...] hyperplasia with lower urinary tract symptoms Jose Mliler, DO 02/17/2023 E29.1 Testicular hypofunction Bryce martell [...] 9:00 am - Jose Miller DO at [facility] 06/03/2023 - Liliana Coker PA-C* J01.00 [...] * R05.1 Acute cough* Recommendations:* Can take xhkz-mgu-gkkjncf cough medicine for this - HBP labels [...]
--- OUTSIDE RECORDS SUMMARY | 2023-06-21 15:54 | External Medical Summary | Continuity of Care Document ---
Author Name Unknown Organization [employer] [facility] Address [address] [place] [address] Phone [phone] Problems Active Problems Provider Date Hyperlipidemia Shubham [...] Qnty Indications Order ing Provider Date Doxycycline Mmksvnq272ex Tablets one tablet twice a day for 10 days 20tabs J01.00 Jose Miller, DO 06/03/2023 Testosterone1.62% Gel Apply 2 Pumps Topically Once Daily as Directed 75units E29.1 Jose Miller, DO 01/21/[address] Take 1 Capsule Daily 90caps K21.9 Jose Miller, DO 06/17/2021 Irozzkcres34ne Tablets Take 1 Tablet Daily 90tabs I10 Jose Miller, DO 11/09/2018 Aspir-8181mg Tablets DR 1 po qd Mayra Leal, DO Travatan Z0.004% Solution Unknown ProbioticCapsules 1 by mouth every day 30caps Jose Miller, DO Tamsulosin HCL0.4mg Capsules Take 2 Capsules Daily 180caps N40.1 Jose Miller, DO Nmshldgsbvv98fl Tablets Take 1 Tablet Daily 90tabs E78.2 Jose Miller, DO Snsloazca9pe Tablets 1 tab po daily N40.1 Unkn own Gaviscon Extra Mctxyrpr682-442sa Chewtabs Unknown Sfzxmxkf893lk Capsules 1 capsule tid K80.20 Unk nown History Medications Paxlovid (300/100)20x 150 mg & 10 x 100mg TBPK one dose by mouth (including ritonavir) per pack instructions x 5 days 30units U07.1 Jose Miller, DO 03/18/2023 - 03/26/2023 Immunizations CPT Code Status Date Vaccine Lot # [id number] Given 12/26/2022 Shingrix 98292 Given 09/30/2022 Shingrix 79707 Given 03/06/2021 Moderna Sars-Co v-2 (Cov-19) vacc,100 mcg/ 0.5 mL 12Y+EMR Doc Only 54352 Given 08/28/2020 Moderna Sars-Co v-2 (Cov-19) vacc,100 mcg/ 0.5 mL 12Y+EMR Doc Only 76215 Given 07/31/2020 Moderna Sars-Co v-2 (Cov-19) vacc,100 mcg/ 0.5 mL 12Y+EMR Doc Only 25768 Given 07/14/2017 Tdap (Tetanus, diphtheria & acel. pertussis) Adacel or Boostrix [id number] 84099 Refused 02/17/2023 Influenza Vac, Split, Preservative Free High Dose Age 65 & > 61862 Refused 01/27/2022 Influenza Vac, Split, Preservative Free High Dose Age 65 & > 01253 Refused 01/27/2022 Pneumococcal Conjugate-Pr evnar 20 57410 Refused 01/23/2021 Influenza Vaccine High Do se 0.5ML Age 65 & > 20504 Refused 01/23/2021 Pneumococcal Conjugate-Pr evnar 13 09883 Refused 07/10/2020 Moderna Sars-Co v-2 (Cov-19) vacc,100 mcg/ 0.5 mL 12Y+EMR Doc Only 14096 Refused 11/29/2019 Influenza Virus Vaccine, Quadrivalent, Im Use 92999 Refused 10/15/2018 Influenza Virus Vaccine, Quadrivalent, [place] Use 55620 Refused 11/27/2017 Influenza Virus Vaccine, Quadrivalent, Im Use 58098 Refused 11/10/2016 Influenza Virus Vaccine, Quadrivalent, Im Use 03291 Refused 02/04/2016 Influenza Virus Vaccine, Quadrivalent, Im Use 48563 Refused 02/02/2015 Influenza Virus Vaccine, Quadrivalent, Im Use 57354 Refused 04/25/2014 Influenza Virus Vaccine, Quadrivalent, Im Use 61187 Refused 01/27/2014 Influenza Virus Vaccine, Quadrivalent, Im [...] 5'9.25" BMI (Body Mass Index) 28.2 kg/m2 [place] Body Weight 160 lb Results Test Acquired Date Facility Test Result H/L Range N ote Laboratory test finding 06/03/2023 [facility] (In Office Test) Sars Antigen - In Office negative Laboratory test finding 02/17/2023 [facility]. [address] [place] [address] [phone] Total Testoster 532 ng/dL 199-1586 1 CBC W/Diff 02/17/2023 [facility]. [address] [place] [address] [phone] WBC 6.1 10^3/M3 3.1-9.2 RBC 4.99 10^6/M3 4.00-5.80 HGB 15.8 GR/DL 12.5-17.5 HCT 46.2 % 37.5-52.5 MCV 92.6 CUMICR 82.6-95.8 MCH 31.8 PICOGR 27.9-32.9 MCHC 34.3 % 32.6-35.4 RDW 13.5 % 11.4-14.6 PLT 248 10^3/M3 140-350 MPV 9.3 CUMICR 7.0-10.6 %Neut 45.9 % 40.0-75.0 %Lymph 41.5 % 17.0-45.0 %Fannin 10.7 % 1.0-11.0 %Eos 1.3 % 0.0-6.0 %Baso 0.6 % 0.0-2.0 #Neut 2.8 10^3/M3 1.5-8.0 #Lymph 2.5 10^3/M3 0.8-3.2 #Fannin 0.7 10^3/M3 0.0-0.8 #Eos 0.1 10^3/m3 0.0-0.4 #Baso 0.0 10^3/m3 0.0-0.2 Comp. Met 02/17/2023 [facility]. [address] [place], [place] [id number] [phone] Glucose 102 mg/dL 70-110 BUN 13 mg/dL [...] 2.0-3.4 GFR 71 ML/MIN/1.73SQM >60 Lipid 02/17/2023 [facility]. [address] [place], [place] [id number] [phone] Cholesterol 175 mg/dL 0-200 2 Triglyceride 71 [...] e/m vis it add on Completed 02/17/2023 97241 Venipuncture Routine Complet ed 02/17/2023 3079F PVRP Diastolic BP 80-89 MMHG Completed 02/17/2023 3074F PVRP Systolic BP <130 mmHg C ompleted 08/20/2021 [id number] Colonoscopy Completed Medical Devices Description No Information Available Encounters Type Date Location Provider Dx Diagnosis Office Visit 06/03/2023 1:30p [facility] Liliana Coker PA-C J01.00 Acute maxillary sinusitis, unspecified R05.1 Acute cough Office Visit 03/26/2023 3:30p [facility] Jose Miller, DO R22.32 Localized swelling, mass and lump, left upper limb M79.642 Pain in left hand Office Visit 03/18/2023 10:30a [facility] Liliana Coker PA-C U07.1 Covid-19 Office Visit 02/17/2023 8:30a [facility] Jose Miller DO N40.1 [...] 9:00 am - Jose Miller DO at [facility] 06/03/2023 - Liliana Coker PA-C* J01.00 [...] * R05.1 Acute cough* Recommendations:* Can take ocdt-ggt-vgbvvfi cough medicine for this - HBP labels [...]
--- OUTSIDE RECORDS SUMMARY | 2023-06-21 15:55 | External Medical Summary | Continuity of Care Document ---
Author Name Unknown Organization [employer] [facility] Address [address] [place] [address] Phone [phone] Problems Active Problems Provider Date Hyperlipidemia Shubham [...] Never Smoked A Pipe Smoking Status Reviewed: 03/26/23 Never Smoked A Pipe Smokeless Tobacco 03/26/2023 Never Used Smo keless Tobacco ETOH Use 02/02/2015 Occasionally con sumes alcohol Recreational Drug Use 02/02/2015 Never Used Drugs Enjoy Exercising Enjoys exercising Gym wo rkout 3-4 times a week. Exercise Type/Frequency 02/02/2015 Exercises regular ly Allergies and adverse reactions Description No Known Drug Allergies Medications Active Medications SIG Qnty Indications Order ing Provider Date Testosterone1.62% Gel Apply 2 Pumps Topically Once Daily as Directed 75units E29.1 Jose Miller, DO 01/21/[address] Take 1 Capsule Daily 90caps K21.9 Jose Miller, DO 06/17/2021 Xgcvvpamtd46je Tablets Take 1 Tablet Daily 90tabs I10 Jose Miller, DO 11/09/2018 Aspir-[address] Tablets DR 1 po qd Mayra Leal, DO Travatan Z0.004% Solution Unknown ProbioticCapsules 1 by mouth every day 30caps Jose Miller, DO Tamsulosin HCL0.4mg Capsules Take 2 Capsules Daily 180caps N40.1 Jose Miller, DO Aqumttknyte45fv Tablets Take 1 Tablet Daily 90tabs E78.2 Jose Miller, DO Npkhcvrut6ku Tablets 1 tab po daily N40.1 Unkn own Gaviscon Extra [id number] Chewtabs Unknown Xppkmjya674xi Capsules 1 capsule tid K80.20 Unk nown History Medications Paxlovid (300/100)20x 150 mg & 10 x 100mg TBPK one dose by mouth (including ritonavir) per pack instructions x 5 days 30units U07.1 Jose Charlton Paul, DO 03/18/2023 - 03/26/2023 Sullzzmn91xzd/0.5ML Suspension Rec one inj intramuscular 1units Jose Charlton Paul, DO 09/30/2022 - 03/18/2023 Immunizations CPT Code Status Date Vaccine Lot # [id number] Given 12/26/2022 Shingrix 05421 Given 09/30/2022 Shingrix 87009 Given 03/06/2021 Moderna Sars-Co v-2 (Cov-19) vacc,100 mcg/ 0.5 mL 12Y+EMR Doc Only 42278 Given 08/28/2020 Moderna Sars-Co v-2 (Cov-19) vacc,100 mcg/ 0.5 mL 12Y+EMR Doc Only 20822 Given 07/31/2020 Moderna Sars-Co v-2 (Cov-19) vacc,100 mcg/ 0.5 mL 12Y+EMR Doc Only 04606 Given 07/14/2017 Tdap (Tetanus, diphtheria & acel. pertussis) Adacel or Boostrix [id number] 10207 Refused 02/17/2023 Influenza Vac, Split, Preservative Free High Dose Age 65 & > 92437 Refused 01/27/2022 Influenza Vac, Split, Preservative Free High Dose Age 65 & > 44387 Refused 01/27/2022 Pneumococcal Conjugate-Pr evnar 20 36369 Refused 01/23/2021 Influenza Vaccine High Do se 0.5ML Age 65 & > 64252 Refused 01/23/2021 Pneumococcal Conjugate-Pr evnar 13 96346 Refused 07/10/2020 Moderna Sars-Co v-2 (Cov-19) vacc,100 mcg/ 0.5 mL 12Y+EMR Doc Only 55127 Refused 11/29/2019 Influenza Virus Vaccine, Quadrivalent, Im Use 44768 Refused 10/15/2018 Influenza Virus Vaccine, Quadrivalent, Im Use 64692 Refused 11/27/2017 Influenza Virus Vaccine, Quadrivalent, Im Use 00559 Refused 11/10/2016 Influenza Virus Vaccine, Quadrivalent, Im Use 50757 Refused 02/04/2016 Influenza Virus Vaccine, Quadrivalent, Im Use 66338 Refused 02/02/2015 Influenza Virus Vaccine, Quadrivalent, Im Use 41817 Refused 04/25/2014 Influenza Virus Vaccine, Quadrivalent, Im Use 42281 Refused 01/27/2014 Influenza Virus Vaccine, Quadrivalent, Im Use Vital Signs Date Vital Result Comment 03/26/2023 3:09pm BP Systolic 138 mmHg BP Diastolic 84 mmHg Body Temperature 97.1 F Heart Rate 107 /min Respiratory Rate 14 /min Weight 192.25 lb Weight 87.205 kg Height 69.25 inches 5'9.25" BMI (Body Mass Index) 28.2 kg/m2 [place] Body Weight 160 lb 03/18/2023 10:16am BP Systolic 132 mmHg BP Diastolic 84 mmHg Body Temperature 100.4 F Heart Rate 98 /min Respiratory Rate 14 /min Weight 194.38 lb Weight 88.168 kg Results Test Acquired Date Facility Test Result H/L Range N ote Laboratory test finding 02/17/2023 [facility]. [address] [place], [place] [id number] Total Testoster 532 ng/dL 199-1586 1 CBC W/Diff 02/17/2023 [facility]. [address] [place] [address] WBC 6.1 10^3/M3 3.1-9.2 RBC 4.99 10^6/M3 4.00-5.80 HGB 15.8 GR/DL 12.5-17.5 HCT 46.2 % 37.5-52.5 MCV 92.6 CUMICR 82.6-95.8 MCH 31.8 PICOGR 27.9-32.9 MCHC 34.3 % 32.6-35.4 RDW 13.5 % 11.4-14.6 PLT 248 10^3/M3 140-350 MPV 9.3 CUMICR 7.0-10.6 %Neut 45.9 % 40.0-75.0 %Lymph 41.5 % 17.0-45.0 %[place] 10.7 % 1.0-11.0 %Eos 1.3 % 0.0-6.0 %Baso 0.6 % 0.0-2.0 #Neut 2.8 10^3/M3 1.5-8.0 #Lymph 2.5 10^3/M3 0.8-3.2 #[place] 0.7 10^3/M3 0.0-0.8 #Eos 0.1 10^3/m3 0.0-0.4 #Baso 0.0 10^3/m3 0.0-0.2 Comp. Met 02/17/2023 [facility]. [address] [place] [address] [phone] Glucose 102 mg/dL 70-110 BUN 13 mg/dL [...] Lipid 02/17/2023 [facility]. [address] [place], [place] [address] [phone] Cholesterol 175 mg/dL 0-200 2 Triglyceride 71 mg/dL 0-150 3 HDLD 63 mg/dL See Comment 4 Measured LDL 97 mg/dL 0-130 5 Calc VLDL 14.2 mg/dL See Comment 6 Chol/HDL 2.8 RATIO See Comment 7 Non-HDL 112 mg/dL See Comment 8 PSA, Free And Total 11/25/[address] [place] [address] [phone] PSA, Total 0.5 ng/mL Normal < Or = 4.0 PSA, Free 0.2 ng/mL Normal PSA, % Free 40 %(calc) Normal >25 9 Laboratory test finding 11/25/[address] [place] [address] [phone] Clinical PDF Report [id number] SEE IMAGE Laboratory test finding 09/30/2022 [facility]. [address] [place], [place] [id number] [phone] Total Testoster 845 ng/dL 199- 1586 10 CBC W/Diff 09/30/2022 [facility]. [address] [place] [address] [phone] WBC 5.4 10^3/M3 3.1- 9.2 RBC 4.95 10^6/M3 4.00-5.80 HGB 15.5 GR/DL 12.5-17.5 HCT 46.3 % 37.5-52.5 MCV 93.4 CUMICR 82.6-95.8 MCH 31.2 PICOGR 27.9-32.9 MCHC 33.4 % 32.6-35.4 RDW 13.7 % 11.4-14.6 PLT 264 10^3/M3 140-350 MPV 9.2 CUMICR 7.0-10.6 %Neut 50.3 % 40.0-75.0 %Lymph 37.1 % 17.0-45.0 %[place] 11.0 % 1.0-11.0 %Eos 1.0 % 0.0-6.0 %Baso 0.6 % 0.0-2.0 #Neut 2.7 10^3/M3 1.5-8.0 #Lymph 2.0 10^3/M3 0.8-3.2 #[place]ston 0.6 10^3/M3 0.0-0.8 #Eos 0.1 10^3/m3 0.0-0.4 #Baso 0.0 10^3/m3 0.0-0.2 Comp. Met 09/30/2022 [facility]. [address] [place] [address] [phone] Glucose 97 mg/dL 70-110 BUN 11 mg/dL 6-25 Creatinine 1.1 mg/dL 0.7-1.3 Sodium 136 mEq/L 135-145 Potassium 5.1 mEq/L High 3.5-5.0 Chloride 98 mEq/L 95-107 Co-2 27 mEq/L 24-31 Alk Phos 40 IU/L Low 43-122 Alt(SGPT) 18 IU/L 10-40 Ast(Sgot) 20 IU/L 3-42 T.Bilirubin 0.6 mg/dL 0.1-1.3 Calcium 9.6 mg/dL 8.5-10.6 Tot.Protein 6.9 g/dL 5.8-8.0 Albumin 4.5 g/dL 3.0-5.2 Globulin 2.4 g/dL 2.0-3.4 GFR 71 ML/MIN/1.73SQM >60 Lipid 09/30/2022 [facility]. [address] [place] [address] [phone] Cholesterol 172 mg/dL 0-200 11 Triglyceride 66 mg/dL 0-150 12 HDLD 60 mg/dL See Comment 13 Measured LDL 120 mg/dL 0-130 14 Calc VLDL 13.2 mg/dL See Comment 15 Chol/HDL 2.9 RATIO See Comment 16 Non-HDL 112 mg/dL See Comment 17 1 FASTING 2 CHOLESTEROL Less than 200mg/dl [...] 8 NON-HDL 30mg/dl higher than LDL Target 9 PSA(ng/mL) Free PSA( %) Estimated(x) Probability of Cancer(as%) 0-2.5 (*) Approx. 1 2.6-4.0(1) 0-27(2) 24(3) 4.1-10(4) 0-10 56 11-15 28 16-20 20 21-25 16 >or =26 8 >10(+) N/A >50 References:(1)Joao et al.:Urology 60: 469-474 (2002) (2)Joao et al.:J.Urol 168: 922-925 (2001) Free PSA(%) Sensitivity(%) Specificity(%) < or = 25 85 19 < or = 30 93 9 (3)Joao et al.:BURTON 277: 3430-5512 (1996) (4)Timothyona et al.:BURTON 279: 3254-7152 (1997) (x)These estimates vary with age, ethnicity, family history and JAIMIE results. (*)The diagnostic usefulness of % Free PSA has not been established in patients with total PSA below 2.6 ng/mL (+)In men with PSA above 10 ng/mL, prostate cancer risk is determined by total PSA alone. The Total PSA value from this assay system is standardized against the equimolar PSA standard. The test result will be approximately 20% higher when compared to the WHO-standardized Total PSA (Siemens assay). Comparison of serial PSA results should be interpreted with this fact in mind. PSA was performed using the [employer] [place] Immunoassay method. Values obtained from different assay methods cannot be used interchangeably. PSA levels, regardless of value, should not be interpreted as absolute evidence of the presence or absence of disease. 10 FASTING 11 CHOLESTEROL Less than 200mg/dl Low risk 201-239 mg/dl Borderline risk Equal to or greater 240mg/dl High risk 12 TRIGLYCERIDES Less than 150mg/dl Normal 150-199mg/dl Borderline 200-499mg/dl High Greater than 500mg/dl Very High 13 HDL <40mg/dl Elevated Risk 41-59mg/dl Risk >=60mg/dl Least Risk 14 LDL <100mg/dl Optimal 100-129mg/dl Near Optimal 130-159mg/dl Borderline High 160-189mg/dl High >=190 Very High 15 VLDL Less than 30mg/dl Normal 16 CHOL/HDL <4.0 Optimal 4.0-5.0 Borderline >6.0 High Risk 17 NON-HDL 30mg/dl higher than LDL Target Procedures Date Code Description Status 02/17/2023 24771 Venipuncture Routine Complet ed 02/17/2023 3079F PVRP Diastolic BP 80-89 MMHG Completed 02/17/2023 3074F PVRP Systolic BP <130 mmHg C ompleted 11/25/2022 70974 Venipuncture Routine Complet ed 09/30/2022 60111 Venipuncture Routine Complet ed 09/30/2022 3079F PVRP Diastolic BP 80-89 MMHG Completed 09/30/2022 3075F PVRP Systolic BP 130 To 139 MMHG Completed 08/20/2021 [id number] Colonoscopy Completed Medical Devices Description No Information Available Encounters Type Date Location Provider Dx Diagnosis Office Visit 03/26/2023 3:30p [facility] Jose Miller, DO R22.32 Localized swelling, mass and lump, left upper limb M79.642 Pain in left hand Office Visit 03/18/2023 10:30a [facility] Liliana Alanis PA-C U07.1 Covid-19 Office Visit 02/17/2023 8:30a [facility] Jose Miller, DO N40.1 Benign prostatic hyperplasia with lower urinary tract symp 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 Essential (primary) hypertension E78.2 Mixed hyperlipidemia M51.36 Other intervertebral disc degeneration, lumbar region G90.09 Other idiopathic per ipheral autonomic neuropathy K21.9 Gastro-esophageal re flux disease without esophagitis K80.20 Calculus of gallblad fior w/o cholecystitis w/o obstruction Office Visit 09/30/2022 8:45a [facility] Jose Miller, DO E29.1 Testicular hypofunction N40.1 Benign prostatic hyp erplasia with lower urinary tract symp I10 Essential (primary) hypertension E78.2 Mixed hyperlipidemia K21.9 Gastro-esophageal re flux disease without esophagitis M51.36 Other intervertebral disc degeneration, lumbar region G90.09 Other idiopathic per ipheral autonomic neuropathy K80.20 Calculus of gallblad fior w/o cholecystitis w/o obstruction Assessments Date Code Description Provider 03/26/2023 R22.32 Localized swelli ng, mass and lump, left upper limb Jose Miller, 03/26/2023 M79.642 Pain in left hand Jose Miller, DO 03/18/2023 U07.1 Covid-19 Liliana Alanis PA-C 02/17/2023 N40.1 Benign prostatic hyperplasia with lower urinary tract symptoms Jose Miller, DO 02/17/2023 E29.1 Testicular hypofunction Bryce Charlton Paul, DO 02/17/2023 I10 Essential (primary) hyperten terry Jose Miller, DO 02/17/2023 E78.2 Mixed hyperlipidemia Jose Miller, DO 02/17/2023 M51.36 Other interverte bral disc degeneration, lumbar region Jose Miller, DO 02/17/2023 G90.09 Other idiopathic peripheral autonomic neuropathy Jose Miller, DO 02/17/2023 K21.9 Gastro-esophagea l reflux disease without esophagitis Jose Miller, DO 02/17/2023 K80.20 Calculus of gall bladder without cholecystitis without obstruction Jose Miller, DO 11/25/2022 N40.1 Benign prostatic hyperplasia with lower urinary tract symptoms Jose Miller, DO 11/25/2022 N40.1 Benign prostatic hyperplasia with lower urinary tract symptoms Lab - [facility] 11/25/2022 N13.8 Other obstructive and reflux uropathy Jose Miller, DO 11/25/2022 N13.8 Other obstructive and reflux uropathy Lab - [facility] 09/30/2022 E29.1 Testicular hypofunction Bryce martell Latesha Miller, DO 09/30/2022 N40.1 Benign prostatic hyperplasia with lower urinary tract symptoms Jose Miller, DO 09/30/2022 I10 Essential (primary) hyperten terry Jose Miller, DO 09/30/2022 E78.2 Mixed hyperlipidemia Jose Miller, DO 09/30/2022 K21.9 Gastro-esophagea l reflux disease without esophagitis Jose Miller, DO 09/30/2022 M51.36 Other interverte bral disc degeneration, lumbar region Jose Miller, DO 09/30/2022 G90.09 Other idiopathic peripheral autonomic neuropathy Jose Miller, DO 09/30/2022 K80.20 Calculus of gall bladder without cholecystitis without obstruction Jose Miller, Plan of Treatment Future Appointment(s):* 06/30/2023 9:00 am - Jose Miller DO at [facility] 03/26/2023 - Jose Miller DO* R22.32 Localized swelling, mass and lump, left upper limb* Recommendations:* Use Tylenol as needed. Use ice as needed. Hold daily ASA for a few days. Call office on Thursday for update. * M79.642 Pain in left hand* Recommendations:* Use Tylenol as needed. Use ice as needed. Hold daily ASA for a few days. Call office on Thursday for update. Functional Status Description No Information Available Mental Status Description No Information Available Referrals Description No Information Available
--- OUTSIDE RECORDS SUMMARY | 2023-06-21 15:55 | External Medical Summary | Continuity of Care Document ---
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 Social History Type [...] Qnty Indications Order ing Provider Date Doxycycline Npoqabz263nl Tablets one tablet twice a day for 10 days 20tabs J01.00 Jose Miller, DO 06/03/2023 Testosterone1.62% Gel Apply 2 Pumps Topically Once Daily as Directed 75units E29.1 Jose Miller, DO 01/21/[address] Take 1 Capsule Daily 90caps K21.9 Jose Miller, DO 06/17/2021 Uaqakeuqgj65qo Tablets Take 1 Tablet Daily 90tabs I10 Jose Miller, DO 11/09/2018 Aspir-8181mg Tablets DR 1 po qd Mayra Leal, DO Travatan Z0.004% Solution Unknown ProbioticCapsules 1 by mouth every day 30caps Jose Miller, DO Tamsulosin HCL0.4mg Capsules Take 2 Capsules Daily 180caps N40.1 Jose Miller, DO Otugwizslur92gl Tablets Take 1 Tablet Daily 90tabs E78.2 Jose Miller, DO Lwxcmwgmb0fm Tablets 1 tab po daily N40.1 Unkn own Gaviscon Extra Jhonyzwb919-787dy Chewtabs Unknown Awvwdxni241eg Capsules 1 capsule tid K80.20 Unk nown History Medications Paxlovid (300/100)20x 150 mg & 10 x 100mg TBPK one dose by mouth (including ritonavir) per pack instructions x 5 days 30units U07.1 Jose Miller, DO 03/18/2023 - 03/26/2023 Immunizations CPT Code Status Date Vaccine Lot # [id number] Given 12/26/2022 Shingrix 21234 Given 09/30/2022 Shingrix 17708 Given 03/06/2021 Moderna Sars-Co v-2 (Cov-19) vacc,100 mcg/ 0.5 mL 12Y+EMR Doc Only 52419 Given 08/28/2020 Moderna Sars-Co v-2 (Cov-19) vacc,100 mcg/ 0.5 mL 12Y+EMR Doc Only 55824 Given 07/31/2020 Moderna Sars-Co v-2 (Cov-19) vacc,100 mcg/ 0.5 mL 12Y+EMR Doc Only 26068 Given 07/14/2017 Tdap (Tetanus, diphtheria & acel. pertussis) Adacel or Boostrix [id number] 89162 Refused 02/17/2023 Influenza Vac, Split, Preservative Free High Dose Age 65 & > 67481 Refused 01/27/2022 Influenza Vac, Split, Preservative Free High Dose Age 65 & > 70967 Refused 01/27/2022 Pneumococcal Conjugate-Pr evnar 20 94473 Refused 01/23/2021 Influenza Vaccine High Do se 0.5ML Age 65 & > 67887 Refused 01/23/2021 Pneumococcal Conjugate-Pr evnar 13 40879 Refused 07/10/2020 Moderna Sars-Co v-2 (Cov-19) vacc,100 mcg/ 0.5 mL 12Y+EMR Doc Only 89520 Refused 11/29/2019 Influenza Virus Vaccine, Quadrivalent, Im Use 68641 Refused 10/15/2018 Influenza Virus Vaccine, Quadrivalent, Im Use 08090 Refused 11/27/2017 Influenza Virus Vaccine, Quadrivalent, Im Use 34143 Refused 11/10/2016 Influenza Virus Vaccine, Quadrivalent, Im Use 86645 Refused 02/04/2016 Influenza Virus Vaccine, Quadrivalent, Im Use 67557 Refused 02/02/2015 Influenza Virus Vaccine, Quadrivalent, Im Use 18946 Refused 04/25/2014 Influenza Virus Vaccine, Quadrivalent, Im Use 85588 Refused 01/27/2014 Influenza Virus Vaccine, Quadrivalent, Im [...] Range N ote Laboratory test finding 06/03/2023 [facility] (In Office Test) Sars Antigen - In Office negative Laboratory test finding 02/17/2023 [facility]. [address] [place] [address] Total Testoster 532 ng/dL 199-1586 1 CBC W/Diff 02/17/2023 [facility]. [address] [place] [address] WBC 6.1 10^3/M3 3.1-9.2 RBC 4.99 10^6/M3 4.00-5.80 HGB 15.8 GR/DL 12.5-17.5 HCT 46.2 % 37.5-52.5 MCV 92.6 CUMICR 82.6-95.8 MCH 31.8 PICOGR 27.9-32.9 MCHC 34.3 % 32.6-35.4 RDW 13.5 % 11.4-14.6 PLT 248 10^3/M3 140-350 MPV 9.3 CUMICR 7.0-10.6 %Neut 45.9 % 40.0-75.0 %Lymph 41.5 % 17.0-45.0 %[place] 10.7 % 1.0-11.0 %Eos 1.3 % 0.0-6.0 %Baso 0.6 % 0.0-2.0 #Neut 2.8 10^3/M3 1.5-8.0 #Lymph 2.5 10^3/M3 0.8-3.2 #[place] 0.7 10^3/M3 0.0-0.8 #Eos 0.1 10^3/m3 0.0-0.4 #Baso 0.0 10^3/m3 0.0-0.2 Comp. Met 02/17/2023 [facility]. [address] [place], [place] [id number] [phone] Glucose 102 mg/dL 70-110 BUN 13 mg/dL [...] 2.0-3.4 GFR 71 ML/MIN/1.73SQM >60 Lipid 02/17/2023 [facility]. [address] [place], [place] [id number] [phone] Cholesterol 175 mg/dL 0-200 2 Triglyceride 71 [...] e/m vis it add on Completed 02/17/2023 21254 Venipuncture Routine Complet ed 02/17/2023 3079F PVRP Diastolic BP 80-89 MMHG Completed 02/17/2023 3074F PVRP Systolic BP <130 mmHg C ompleted 08/20/2021 [id number] Colonoscopy Completed Medical Devices Description No Information Available Encounters Type Date Location Provider Dx Diagnosis Office Visit 06/03/2023 1:30p [facility] Liliana Coker PA-C J01.00 Acute maxillary sinusitis, unspecified R05.1 Acute cough Office Visit 03/26/2023 3:30p [facility] Jose Miller, DO R22.32 Localized swelling, mass and lump, left upper limb M79.642 Pain in left hand Office Visit 03/18/2023 10:30a [facility] Liliana Coker PA-C U07.1 Covid-19 Office Visit 02/17/2023 8:30a [facility] Jose Miller DO N40.1 [...] Other interverte bral disc degeneration, lumbar region Joes Miller, DO 02/17/2023 G90.09 Other idiopathic peripheral autonomic neuropathy Jose Miller, DO 02/17/2023 K21.9 Gastro-esophagea l reflux disease without esophagitis Jose Miller, DO 02/17/2023 K80.20 Calculus of gall bladder without cholecystitis without obstruction Jose Miller, Plan of Treatment Future Appointment(s):* 06/30/2023 9:00 am - Jose Miller DO at [facility] 06/03/2023 - Liliana Coker PA-C* J01.00 Acute [...] * R05.1 Acute cough* Recommendations:* Can take rcyn-[id number]-[id number] cough medicine for this - HBP labels [...]
--- OUTSIDE RECORDS SUMMARY | 2023-06-21 15:55 | External Medical Summary | Continuity of Care Document ---
Author Name Unknown Organization [employer] [facility] Address [address] [place] [address] Phone [phone] Problems Active Problems Provider Date Hyperlipidemia Shubham [...] Description Comments Sex Unknown Tobacco Use Reviewed: 03/18/23 Never Smoked Cigarettes Tobacco Use Reviewed: 03/18/23 Never Smoked Cigars Tobacco Use Reviewed: 03/18/23 Never Smoked A Pipe Smoking Status Reviewed: 03/18/23 Never Smoked A Pipe Smokeless Tobacco 03/18/2023 Never Used Smo keless Tobacco ETOH Use 02/02/2015 Occasionally con sumes alcohol Recreational Drug Use 02/02/2015 Never Used Drugs Enjoy Exercising Enjoys exercising Gym wo rkout 3-4 times a week. Exercise Type/Frequency 02/02/2015 Exercises regular ly Allergies and adverse reactions Description No Known Drug Allergies Medications Active Medications SIG Qnty Indications Order ing Provider Date Paxlovid (300/100)20x 150 mg & 10 x 100mg TBPK one dose by mouth (including ritonavir) per pack instructions x 5 days 30units U07.1 Jose Miller, DO 03/18/2023 Testosterone1.62% Gel Apply 2 Pumps Topically Once Daily as Directed 75units E29.1 Jose Miller, DO 01/21/2023 [id number] Capsules Take 1 Capsule Daily 90caps K21.9 Jose Miller, DO 06/17/2021 Vlpmrinmvf62vx Tablets Take 1 Tablet Daily 90tabs I10 Jose Miller, DO 11/09/2018 Aspir-[address]mg Tablets DR 1 po qd Mayra Leal, DO Travatan Z0.004% Solution Unknown ProbioticCapsules 1 by mouth every day 30caps Jose Miller, DO Tamsulosin HCL0.4mg Capsules Take 2 Capsules Daily 180caps N40.1 Jose Miller, DO Qzefmtjkfds47vi Tablets Take 1 Tablet Daily 90tabs E78.2 Jose Miller, DO Mseblbpel9ut Tablets 1 tab po daily N40.1 Unkn own Gaviscon Extra [id number] Chewtabs Unknown [id number] Capsules 1 capsule tid K80.20 Unk nown History Medications Fpywgxzs65xct/0.5ML Suspension Rec one inj intramuscular 1units Jose Charlton Paul, DO 09/30/2022 - 03/18/2023 Immunizations CPT Code Status Date Vaccine Lot # [id number] Given 12/26/2022 Shingrix 89295 Given 09/30/2022 Shingrix 96460 Given 03/06/2021 Moderna Sars-Co v-2 (Cov-19) vacc,100 mcg/ 0.5 mL 12Y+EMR Doc Only 17079 Given 08/28/2020 Moderna Sars-Co v-2 (Cov-19) vacc,100 mcg/ 0.5 mL 12Y+EMR Doc Only 60467 Given 07/31/2020 Moderna Sars-Co v-2 (Cov-19) vacc,100 mcg/ 0.5 mL 12Y+EMR Doc Only 38047 Given 07/14/2017 Tdap (Tetanus, diphtheria & acel. pertussis) Adacel or Boostrix [id number] Refused 02/17/2023 Influenza Vac, Split, Preservative Free High Dose Age 65 & > 18311 Refused 01/27/2022 Influenza Vac, Split, Preservative Free High Dose Age 65 & > 39090 Refused 01/27/2022 Pneumococcal Conjugate-Pr evnar 20 63102 Refused 01/23/2021 Influenza Vaccine High Do se 0.5ML Age 65 & > 54636 Refused 01/23/2021 Pneumococcal Conjugate-Pr evnar 13 49682 Refused 07/10/2020 Moderna Sars-Co v-2 (Cov-19) vacc,100 mcg/ 0.5 mL 12Y+EMR Doc Only 89680 Refused 11/29/2019 Influenza Virus Vaccine, Quadrivalent, Im Use 11651 Refused 10/15/2018 Influenza Virus Vaccine, Quadrivalent, Im Use 05406 Refused 11/27/2017 Influenza Virus Vaccine, Quadrivalent, Im Use 90921 Refused 11/10/2016 Influenza Virus Vaccine, Quadrivalent, Im Use 35287 Refused 02/04/2016 Influenza Virus Vaccine, Quadrivalent, Im Use 81619 Refused 02/02/2015 Influenza Virus Vaccine, Quadrivalent, Im Use 84862 Refused 04/25/2014 Influenza Virus Vaccine, Quadrivalent, Im Use 58338 Refused 01/27/2014 Influenza Virus Vaccine, Quadrivalent, Im Use Vital Signs Date Vital Result Comment 03/18/2023 10:16am BP Systolic 132 mmHg BP Diastolic 84 mmHg Body Temperature 100.4 F Heart Rate 98 /min Respiratory Rate 14 /min Weight 194.38 lb Weight 88.168 kg 02/17/2023 8:31am BP Systolic 118 mmHg BP Diastolic 82 mmHg Body Temperature 97.3 F Heart Rate 79 /min Respiratory Rate 14 /min Weight 194.12 lb Weight 88.055 kg Height 69.25 inches 5'9.25" BMI (Body Mass Index) 28.5 kg/m2 [place] Body Weight 160 lb Results Test Acquired Date Facility Test Result H/L Range N ote Laboratory test finding 02/17/2023 [facility] [address] [place] [address] Total Testoster 532 ng/dL 199-1586 1 CBC W/Diff 02/17/2023 [facility] [address] [place] [address] [phone] WBC 6.1 10^3/M3 3.1-9.2 RBC 4.99 10^6/M3 4.00-5.80 HGB 15.8 GR/DL 12.5-17.5 HCT 46.2 % 37.5-52.5 MCV 92.6 CUMICR 82.6-95.8 MCH 31.8 PICOGR 27.9-32.9 MCHC 34.3 % 32.6-35.4 RDW 13.5 % 11.4-14.6 PLT 248 10^3/M3 140-350 MPV 9.3 CUMICR 7.0-10.6 %Neut 45.9 % 40.0-75.0 %Lymph 41.5 % 17.0-45.0 %[place] 10.7 % 1.0-11.0 %Eos 1.3 % 0.0-6.0 %Baso 0.6 % 0.0-2.0 #Neut 2.8 10^3/M3 1.5-8.0 #Lymph 2.5 10^3/M3 0.8-3.2 #[place] 0.7 10^3/M3 0.0-0.8 #Eos 0.1 10^3/m3 0.0-0.4 #Baso 0.0 10^3/m3 0.0-0.2 Comp. Met 02/17/2023 [facility] [address] [place], [place] [id number] [phone] Glucose 102 mg/dL 70-110 BUN 13 mg/dL [...] 2.0-3.4 GFR 71 ML/MIN/1.73SQM >60 Lipid 02/17/2023 [facility] [address] [place], [place] [id number] [phone] Cholesterol 175 mg/dL 0-200 2 Triglyceride 71 mg/dL 0-150 3 HDLD 63 mg/dL See Comment 4 Measured LDL 97 mg/dL 0-130 5 Calc VLDL 14.2 mg/dL See Comment 6 Chol/HDL 2.8 RATIO See Comment 7 Non-HDL 112 mg/dL See Comment 8 PSA, Free And Total 11/25/[address] [facility] [place] [address] [phone] PSA, Total 0.5 ng/mL Normal < Or = 4.0 PSA, Free 0.2 ng/mL Normal PSA, % Free 40 %(calc) Normal >25 9 Laboratory test finding 11/25/[address] [facility] [place] [address] [phone] Clinical PDF Report [id number] SEE IMAGE Laboratory test finding 09/30/2022 [facility] [address] [place] [address] [phone] Total Testoster 845 ng/dL 199- 1586 10 CBC W/Diff 09/30/2022 [facility] [address] [place] [address] [phone] WBC 5.4 10^3/M3 3.1- 9.2 RBC 4.95 10^6/M3 4.00-5.80 HGB 15.5 GR/DL 12.5-17.5 HCT 46.3 % 37.5-52.5 MCV 93.4 CUMICR 82.6-95.8 MCH 31.2 PICOGR 27.9-32.9 MCHC 33.4 % 32.6-35.4 RDW 13.7 % 11.4-14.6 PLT 264 10^3/M3 140-350 MPV 9.2 CUMICR 7.0-10.6 %Neut 50.3 % 40.0-75.0 %Lymph 37.1 % 17.0-45.0 %[place] 11.0 % 1.0-11.0 %Eos 1.0 % 0.0-6.0 %Baso 0.6 % 0.0-2.0 #Neut 2.7 10^3/M3 1.5-8.0 #Lymph 2.0 10^3/M3 0.8-3.2 #[place] 0.6 10^3/M3 0.0-0.8 #Eos 0.1 10^3/m3 0.0-0.4 #Baso 0.0 10^3/m3 0.0-0.2 Comp. Met 09/30/2022 [facility] [address] [place] [address] [phone] Glucose 97 mg/dL 70-110 BUN 11 mg/dL [...] 2.0-3.4 GFR 71 ML/MIN/1.73SQM >60 Lipid 09/30/2022 [facility] [address] [place], [place] [id number] [phone] Cholesterol 172 mg/dL 0-200 11 Triglyceride 66 [...] [phone] (2002) (2)Joao et al.:J.Urol 168: 922-925 (2002) Free PSA(%) Sensitivity(%) Specificity(%) < or = 25 85 19 < or = 30 93 9 (3)Joao et al.:BURTON 277: 7030-6476 (1996) (4)Timothyona et al.:BURTON 279: 5134-7958 (1997) (x)These estimates vary with age, ethnicity, [...] mind. PSA was performed using the Zechariah Alexandro Immunoassay method. Values obtained from different assay [...] Target Procedures Date Code Description Status 02/17/2023 29998 Venipuncture Routine Complet ed 02/17/2023 3079F PVRP Diastolic BP 80-89 MMHG Completed 02/17/2023 3074F PVRP Systolic BP <130 mmHg C ompleted 11/25/2022 91303 Venipuncture Routine Complet ed 09/30/2022 67017 Venipuncture Routine Complet ed 09/30/2022 3079F PVRP Diastolic BP 80-89 MMHG Completed 09/30/2022 3075F PVRP Systolic BP 130 To 139 MMHG Completed 08/20/2021 29914656 Colonoscopy Completed Medical Devices Description No Information Available Encounters Type Date Location Provider Dx Diagnosis Office Visit 03/18/2023 10:30a [facility] Liliana Alanis PA-C U07.1 Covid-19 Office Visit 02/17/2023 8:30a [facility] Jose Miller, DO N40.1 Benign prostatic hyperplasia with lower urinary tract symp 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 Essential (primary) hypertension E78.2 Mixed hyperlipidemia M51.36 Other intervertebral disc degeneration, 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20 Calculus of gallblad fior w/o cholecystitis w/o obstruction Assessments Date Code Description Provider 03/18/2023 U07.1 Covid-19 Liliana Alanis PA-C 02/17/2023 N40.1 Benign prostatic hyperplasia with lower urinary tract symptoms Jose Miller, DO 02/17/2023 E29.1 Testicular hypofunction Bryce aejosse Miller, DO 02/17/2023 I10 Essential (primary) hyperten [...] with lower urinary tract symptoms [facility] 11/25/2022 N13.8 Other obstructive and reflux uropathy Jose Miller, DO 11/25/2022 N13.8 Other obstructive and reflux uropathy Lab - [facility] 09/30/2022 E29.1 Testicular hypofunction Bryce choudhuryjosse Miller, DO 09/30/2022 N40.1 Benign prostatic hyperplasia [...] gall bladder without cholecystitis without obstruction Jose Miller DO Plan of Treatment Future Appointment(s):* 06/30/2023 9:00 am - Jose Miller DO at [facility] 03/18/2023 - Liliana Alanis PA-C* U07.1 Covid-19* New Medication:* Paxlovid (300/100) 20 x 150 mg & 10 x 100mg - one dose by mouth (including ritonavir) per pack instructions x 5 days * Comments:* covid, quarantine and paxlovid discussed - pt would like to opt for medical tx with paxlovid e/se discussed pvui hold statin * Follow up:* prn * Recommendations:* Remain in quarantine 5 days from the date of your symptoms. After the 5 days, if you are feeling better and are fever free for 24 hours without use of a fever reducing agent you may wear a mask in public and social distance for 5 days. However, if you still have fevers and/or are not feeling better, please call us to clarify how long you should quarantine for. You may need to be evaluated again. Any household members or close contacts to you should also quarantine. Symptomatic members need to quarantine as above. Please also see current guidelines on vaccinations and exposures, wear mask at all times if vaccinated and known covid exposure. Please call us if fevers worsen/return, cough worsens, you become short of breath, etc. or your symptoms worsen Hold cholesterol med for 5 days as we discussed. Hydrate well. Functional Status Description No Information Available Mental Status Description No Information Available Referrals Description No Information Available
--- OUTSIDE RECORDS SUMMARY | 2023-06-21 15:55 | External Medical Summary | Continuity of Care Document ---
Author Name Unknown Organization [employer] [facility] Address [address] [place] [address] Phone [phone] Problems Active Problems Provider Date Hyperlipidemia Shubham [...] Directed 75units E29.1 Jose Miller, DO 01/21/[id number] Take 1 Capsule Daily 90caps K21.9 Jose Miller, DO 06/17/2021 Vacktaplty71sg Tablets Take 1 Tablet Daily 90tabs I10 Jose Miller, DO 11/09/2018 Aspir-8181mg Tablets DR 1 po qd Mayra Leal, DO Travatan Z0.004% Solution Unknown ProbioticCapsules 1 by mouth every day 30caps Jose Miller, DO Tamsulosin HCL0.4mg Capsules Take 2 Capsules Daily 180caps N40.1 Jose Miller, DO Psbgutekoqt41ys Tablets Take 1 Tablet Daily 90tabs E78.2 Jose Miller, DO Bzxydkfki8mg Tablets 1 tab po daily N40.1 Unkn own Gaviscon Extra [id number] Chewtabs Unknown [id number] Capsules 1 capsule tid K80.20 Unk nown History Medications Paxlovid (300/100)20x 150 mg & 10 x 100mg TBPK one dose by mouth (including ritonavir) per pack instructions x 5 days 30units U07.1 Jose Latesha Miller, DO 03/18/2023 - 03/26/2023 Immunizations CPT Code Status Date Vaccine Lot # [id number] Given 12/26/2022 Shingrix 26182 Given 09/30/2022 Shingrix 12888 Given 03/06/2021 Moderna Sars-Co v-2 (Cov-19) vacc,100 mcg/ 0.5 mL 12Y+EMR Doc Only 13771 Given 08/28/2020 Moderna Sars-Co v-2 (Cov-19) vacc,100 mcg/ 0.5 mL 12Y+EMR Doc Only 99438 Given 07/31/2020 Moderna Sars-Co v-2 (Cov-19) vacc,100 mcg/ 0.5 mL 12Y+EMR Doc Only 88212 Given 07/14/2017 Tdap (Tetanus, diphtheria & acel. pertussis) Adacel or Boostrix [id number] 79061 Refused 02/17/2023 Influenza Vac, Split, Preservative Free High Dose Age 65 & > 34013 Refused 01/27/2022 Influenza Vac, Split, Preservative Free High Dose Age 65 & > 38731 Refused 01/27/2022 Pneumococcal Conjugate-Pr evnar 20 83114 Refused 01/23/2021 Influenza Vaccine High Do se 0.5ML Age 65 & > 16801 Refused 01/23/2021 Pneumococcal Conjugate-Pr evnar 13 94143 Refused 07/10/2020 Moderna Sars-Co v-2 (Cov-19) vacc,100 mcg/ 0.5 mL 12Y+EMR Doc Only 68976 Refused 11/29/2019 Influenza Virus Vaccine, Quadrivalent, Im Use 91941 Refused 10/15/2018 Influenza Virus Vaccine, Quadrivalent, Im Use 19454 Refused 11/27/2017 Influenza Virus Vaccine, Quadrivalent, Im Use 72976 Refused 11/10/2016 Influenza Virus Vaccine, Quadrivalent, Im Use 25348 Refused 02/04/2016 Influenza Virus Vaccine, Quadrivalent, Im Use 53953 Refused 02/02/2015 Influenza Virus Vaccine, Quadrivalent, Im Use 19511 Refused 04/25/2014 Influenza Virus Vaccine, Quadrivalent, Im Use 70294 Refused 01/27/2014 Influenza Virus Vaccine, Quadrivalent, Im Use Vital Signs Date Vital Result Comment 03/26/2023 3:09pm BP Systolic 138 mmHg BP Diastolic 84 mmHg Body Temperature 97.1 F Heart Rate 107 /min Respiratory Rate 14 /min Weight 192.25 lb Weight 87.205 kg Height 69.25 inches 5'9.25" BMI (Body Mass Index) 28.2 kg/m2 [place] Body Weight 160 lb 03/18/2023 10:16am BP Systolic 132 mmHg BP Diastolic 84 mmHg Body Temperature 100.4 F Heart Rate 98 /min Respiratory Rate 14 /min Weight 194.38 lb Weight 88.168 kg Results Test Acquired Date Facility Test Result H/L Range N ote Laboratory test finding 02/17/2023 [facility]. [address] [place] [address] Total Testoster 532 ng/dL 199-1586 1 CBC W/Diff 02/17/2023 [facility]. [address] [place] [address] WBC 6.1 10^3/M3 3.1-9.2 RBC 4.99 10^6/M3 4.00-5.80 HGB 15.8 GR/DL 12.5-17.5 HCT 46.2 % 37.5-52.5 MCV 92.6 CUMICR 82.6-95.8 MCH 31.8 PICOGR 27.9-32.9 MCHC 34.3 % 32.6-35.4 RDW 13.5 % 11.4-14.6 PLT 248 10^3/M3 140-350 MPV 9.3 CUMICR 7.0-10.6 %Neut 45.9 % 40.0-75.0 %Lymph 41.5 % 17.0-45.0 %[place] 10.7 % 1.0-11.0 %Eos 1.3 % 0.0-6.0 %Baso 0.6 % 0.0-2.0 #Neut 2.8 10^3/M3 1.5-8.0 #Lymph 2.5 10^3/M3 0.8-3.2 #[place] 0.7 10^3/M3 0.0-0.8 #Eos 0.1 10^3/m3 0.0-0.4 #Baso 0.0 10^3/m3 0.0-0.2 Comp. Met 02/17/2023 [facility]. [address] [place], [place] [address] [phone] Glucose 102 mg/dL 70-110 BUN 13 mg/dL [...] 2.0-3.4 GFR 71 ML/MIN/1.73SQM >60 Lipid 02/17/2023 [facility]. [address] [place], [place] [address] [phone] Cholesterol 175 mg/dL 0-200 2 Triglyceride 71 mg/dL 0-150 3 HDLD 63 mg/dL See Comment 4 Measured LDL 97 mg/dL 0-130 5 Calc VLDL 14.2 mg/dL See Comment 6 Chol/HDL 2.8 RATIO See Comment 7 Non-HDL 112 mg/dL See Comment 8 PSA, Free And Total 11/25/[address] [place] [address] [phone] PSA, Total 0.5 ng/mL Normal < Or = 4.0 PSA, Free 0.2 ng/mL Normal PSA, % Free 40 %(calc) Normal >25 9 Laboratory test finding 11/25/[address] [place] [address] [phone] Clinical PDF Report [id number] SEE IMAGE 1 FASTING 2 CHOLESTEROL Less than 200mg/dl [...] >50 References:(1)Joao et al.:Urology 60: 469-474 (2002) (2)Catalona et al.:J.Urol 168: 922-925 (2001) Free PSA(%) Sensitivity(%) Specificity(%) < or = 25 85 19 < or = 30 93 9 (3)Catalona et al.:BURTON 277: 8349-2095 (1996) (4)Catalona et al.:BURTON 279: 1903-7281 (1997) (x)These estimates vary with age, ethnicity, [...] of the presence or absence of disease. Procedures Date Code Description Status 03/26/2023 G2211 Continuation of care e/m vis it add on Completed 02/17/2023 3079F PVRP Diastolic BP 80-89 MMHG Completed 02/17/2023 3074F PVRP Systolic BP <130 mmHg C ompleted 02/17/2023 65164 Venipuncture Routine Complet ed 11/25/2022 15133 Venipuncture Routine Complet ed 08/20/2021 [id number] Colonoscopy Completed Medical Devices Description No Information Available Encounters Type Date Location Provider Dx Diagnosis Office Visit 03/26/2023 3:30p [facility] Jose Miller, DO R22.32 Localized swelling, mass and lump, left upper limb M79.642 Pain in left hand Office Visit 03/18/2023 10:30a [facility] Liliana Coker PA-C U07.1 Covid-19 Office Visit 02/17/2023 8:30a [facility] Jose Miller, DO N40.1 Benign prostatic hyperplasia [...] Miller, DO 02/17/2023 E29.1 Testicular hypofunction Bryce jasbir Miller, DO 02/17/2023 I10 Essential (primary) hyperten [...] with lower urinary tract symptoms Lab - [facility] 11/25/2022 N13.8 Other obstructive and reflux uropathy Jose Miller, 11/25/2022 N13.8 Other obstructive and reflux uropathy Lab - [facility] Plan of Treatment Future Appointment(s):* 06/30/2023 9:00 am - Jose Miller DO at [facility] 03/26/2023 - Jose Miller DO* R22.32 Localized [...]
--- OUTSIDE RECORDS SUMMARY | 2023-06-21 15:55 | External Medical Summary | Continuity of Care Document ---
Author Name Unknown Organization [email or web address] Address [address] [place] [address] Phone [phone] Problems Active Problems Provider Date Hyperlipidemia Shubham [...] Description Comments Sex Unknown Tobacco Use Reviewed: 02/17/23 Never Smoked Cigarettes Tobacco Use Reviewed: 02/17/23 Never Smoked Cigars Tobacco Use Reviewed: 02/17/23 Never Smoked A Pipe Smoking Status Reviewed: 02/17/23 Never Smoked A Pipe Smokeless Tobacco 02/17/2023 Never Used Smo keless Tobacco ETOH Use 02/02/2015 Occasionally con sumes alcohol Recreational Drug Use 02/02/2015 Never Used Drugs Enjoy Exercising Enjoys exercising Gym wo rkout 3-4 times a week. Exercise Type/Frequency 02/02/2015 Exercises regular ly Allergies and adverse reactions Description No Known Drug Allergies Medications Active Medications SIG Qnty Indications Order ing Provider Date Testosterone1.62% Gel Apply 2 Pumps Topically Every Day as Directed. 75units E29.1 Jose Miller, DO 3 Pjkmzpaw20rks/0.5ML Suspension Rec one inj intramuscular 1units Jose Miller, DO [address] Take 1 Capsule Daily 90caps K21.9 Jose Miller, DO 2 Jeycclucbg36sz Tablets Take 1 Tablet Daily 90tabs I10 Jose Miller, DO 9 Aspir-8181mg Tablets DR 1 po qd Mayra Leal, DO 0 Travatan Z0.004% Solution Unknown 0 ProbioticCapsules 1 by mouth every day 30caps Jose Miller, DO 0 Tamsulosin HCL0.4mg Capsules Take 2 Capsules Daily 180caps N40.1 Jose Miller, DO 0 Pwjuevogldz15ov Tablets Take 1 Tablet Daily 90tabs E78 .2 Jose Miller, DO 0 Chhfbjqwe4vq Tablets 1 tab po daily N40.1 Unkn own 0 Gaviscon Extra Fodlzshu587-109xc Chewtabs Unknown 0 Kzhpzydy712qg Capsules 1 capsule tid K80.20 Unk nown 0 Immunizations CPT Code Status Date Vaccine Lot # [id number] Given 12/26/2022 Shingrix 01436 Given 09/30/2022 Shingrix 00840 Given 03/06/2021 Moderna Sars-Co v-2 (Cov-19) vacc,100 mcg/ 0.5 mL 12Y+EMR Doc Only 75514 Given 08/28/2020 Moderna Sars-Co v-2 (Cov-19) vacc,100 mcg/ 0.5 mL 12Y+EMR Doc Only 42874 Given 07/31/2020 Moderna Sars-Co v-2 (Cov-19) vacc,100 mcg/ 0.5 mL 12Y+EMR Doc Only 59446 Given 07/14/2017 Tdap (Tetanus, diphtheria & acel. pertussis) Adacel or Boostrix [id number] Refused 02/17/2023 Influenza Vac, Split, Preservative Free High Dose Age 65 & > 88816 Refused 01/27/2022 Influenza Vac, Split, Preservative Free High Dose Age 65 & > 47677 Refused 01/27/2022 Pneumococcal Conjugate-Pr evnar 20 76650 Refused 01/23/2021 Influenza Vaccine High Do se 0.5ML Age 65 & > 86409 Refused 01/23/2021 Pneumococcal Conjugate-Pr evnar 13 87529 Refused 07/10/2020 Moderna Sars-Co v-2 (Cov-19) vacc,100 mcg/ 0.5 mL 12Y+EMR Doc Only 72480 Refused 11/29/2019 Influenza Virus Vaccine, Quadrivalent, Im Use 63245 Refused 10/15/2018 Influenza Virus Vaccine, Quadrivalent, Im Use 94742 Refused 11/27/2017 Influenza Virus Vaccine, Quadrivalent, Im Use 69750 Refused 11/10/2016 Influenza Virus Vaccine, Quadrivalent, Im Use 91990 Refused 02/04/2016 Influenza Virus Vaccine, Quadrivalent, Im Use 95839 Refused 02/02/2015 Influenza Virus Vaccine, Quadrivalent, Im Use 38303 Refused 04/25/2014 Influenza Virus Vaccine, Quadrivalent, Im Use 62632 Refused 01/27/2014 Influenza Virus Vaccine, Quadrivalent, Im Use Vital Signs Date Vital Result Comment 02/17/2023 8:31am BP Systolic 118 mmHg BP Diastolic 82 mmHg Body Temperature 97.3 F Heart Rate 79 /min Respiratory Rate 14 /min Weight 194.12 lb Weight 88.055 kg Height 69.25 inches 5'9.25" BMI (Body Mass Index) 28.5 kg/m2 [place] Body Weight 160 lb 09/30/2022 8:34am BP Systolic 132 mmHg BP Diastolic 84 mmHg Body Temperature 97.3 F Heart Rate 88 /min Respiratory Rate 14 /min Weight 191.12 lb Weight 86.694 kg Height 69.25 inches 5'9.25" BMI (Body Mass Index) 28.0 kg/m2 [place] Body Weight 160 lb Results Test Acquired Date Facility Test Result H/L Range N ote Laboratory test finding 02/17/2023 [facility] [address] [place], [place] [id number] Total Testoster 532 ng/dL 199-1586 1 CBC W/Diff 02/17/2023 [facility] [address] [place], [place] [id number] [phone] WBC 6.1 10^3/M3 3.1-9.2 RBC 4.99 10^6/M3 4.00-5.80 HGB 15.8 GR/DL 12.5-17.5 HCT 46.2 % 37.5-52.5 MCV 92.6 CUMICR 82.6-95.8 MCH 31.8 PICOGR 27.9-32.9 MCHC 34.3 % 32.6-35.4 RDW 13.5 % 11.4-14.6 PLT 248 10^3/M3 140-350 MPV 9.3 CUMICR 7.0-10.6 %Neut 45.9 % 40.0-75.0 %Lymph 41.5 % 17.0-45.0 %Elliott 10.7 % 1.0-11.0 %Eos 1.3 % 0.0-6.0 %Baso 0.6 % 0.0-2.0 #Neut 2.8 10^3/M3 1.5-8.0 #Lymph 2.5 10^3/M3 0.8-3.2 #Elliott 0.7 10^3/M3 0.0-0.8 #Eos 0.1 10^3/m3 0.0-0.4 #Baso 0.0 10^3/m3 0.0-0.2 Comp. Met 02/17/2023 [facility] [address] [place] [address] [phone] Glucose 102 mg/dL 70-110 BUN 13 mg/dL [...] 2.0-3.4 GFR 71 ML/MIN/1.73SQM >60 Lipid 02/17/2023 [facility] [address] [place], [place] [id number] [phone] Cholesterol 175 mg/dL 0-200 2 Triglyceride 71 mg/dL 0-150 3 HDLD 63 mg/dL See Comment 4 Measured LDL 97 mg/dL 0-130 5 Calc VLDL 14.2 mg/dL See Comment 6 Chol/HDL 2.8 RATIO See Comment 7 Non-HDL 112 mg/dL See Comment 8 PSA, Free And Total 11/25/[address] [place] [address] [phone] PSA, Total 0.5 ng/mL Normal < Or = 4.0 PSA, Free 0.2 ng/mL Normal PSA, % Free 40 %(calc) Normal >25 9 Laboratory test finding 11/25/[address] [place] [address] [phone] Clinical PDF Report [id number] SEE IMAGE Laboratory test finding 09/30/2022 [facility] [address] [place], [place] [address] [phone] Total Testoster 845 ng/dL 199- 1586 10 CBC W/Diff 09/30/2022 [facility] [address] [place], [place] [address] [phone] WBC 5.4 10^3/M3 3.1- 9.2 RBC 4.95 10^6/M3 4.00-5.80 HGB 15.5 GR/DL 12.5-17.5 HCT 46.3 % 37.5-52.5 MCV 93.4 CUMICR 82.6-95.8 MCH 31.2 PICOGR 27.9-32.9 MCHC 33.4 % 32.6-35.4 RDW 13.7 % 11.4-14.6 PLT 264 10^3/M3 140-350 MPV 9.2 CUMICR 7.0-10.6 %Neut 50.3 % 40.0-75.0 %Lymph 37.1 % 17.0-45.0 %Elliott 11.0 % 1.0-11.0 %Eos 1.0 % 0.0-6.0 %Baso 0.6 % 0.0-2.0 #Neut 2.7 10^3/M3 1.5-8.0 #Lymph 2.0 10^3/M3 0.8-3.2 #Elliott 0.6 10^3/M3 0.0-0.8 #Eos 0.1 10^3/m3 0.0-0.4 #Baso 0.0 10^3/m3 0.0-0.2 Comp. Met 09/30/2022 [facility] [address] [place] [address] [phone] Glucose 97 mg/dL 70-110 BUN 11 mg/dL [...] 2.0-3.4 GFR 71 ML/MIN/1.73SQM >60 Lipid 09/30/2022 [facility] [address] [place] [address] [phone] Cholesterol 172 mg/dL 0-200 11 Triglyceride 66 [...] 30 93 9 (3)Catalona et al.:BURTON 277: 9021-3035 (1996) (4)Catalona et al.:BURTON 279: 7755-5838 (1997) (x)These estimates vary with age, ethnicity, [...] Target Procedures Date Code Description Status 02/17/2023 45406 Venipuncture Routine Complet ed 02/17/2023 3079F PVRP Diastolic BP 80-89 MMHG Completed 02/17/2023 3074F PVRP Systolic BP <130 mmHg C ompleted 11/25/2022 04607 Venipuncture Routine Complet ed 09/30/2022 93575 Venipuncture Routine Complet ed 09/30/2022 3079F PVRP Diastolic BP 80-89 MMHG Completed 09/30/2022 3075F PVRP Systolic BP 130 To 139 MMHG Completed 08/20/2021 [id number] Colonoscopy Completed Medical Devices Description No Information Available Encounters Type Date Location Provider Dx Diagnosis Office Visit 02/17/2023 8:30a [facility] Jose Miller, DO N40.1 Benign prostatic hyperplasia with lower urinary tract symp 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 Essential (primary) hypertension E78.2 Mixed hyperlipidemia M51.36 Other intervertebral disc degeneration, lumbar region G90.09 Other idiopathic per ipheral autonomic neuropathy K21.9 Gastro-esophageal re flux disease without esophagitis K80.20 Calculus of gallblad fior w/o cholecystitis w/o obstruction Office Visit 09/30/2022 8:45a [facility] Jose Miller, DO E29.1 Testicular hypofunction N40.1 Benign prostatic hyp erplasia with lower urinary tract symp I10 Essential (primary) hypertension E78.2 Mixed hyperlipidemia K21.9 Gastro-esophageal re flux disease without esophagitis M51.36 Other intervertebral disc degeneration, lumbar region G90.09 Other idiopathic per ipheral autonomic neuropathy K80.20 Calculus of gallblad fior w/o cholecystitis w/o obstruction Assessments Date Code Description Provider 02/17/2023 N40.1 Benign prostatic hyperplasia with lower [...] with lower urinary tract symptoms Lab - [facility] 11/25/2022 N13.8 Other obstructive and reflux uropathy Jose Miller, DO 11/25/2022 N13.8 Other obstructive and reflux uropathy Lab - [facility] 09/30/2022 E29.1 Testicular hypofunction Bryce martell Latesha [...] 9:00 am - Jose Miller DO at [facility] 02/17/2023 - Jose Milelr DO* N40.1 Benign prostatic hyperplasia with lower urinary tract symptoms* Recommendations:* follows with Urology. stable and well controlled-- cont dual therapy. psa has been normal * E29.1 Testicular hypofunction* Recommendations:* continue testosterone as prescribed. repeat labs today * I10 Essential (primary) hypertension* Recommendations:* well controlled cont treatment stay active * E78.2 Mixed hyperlipidemia* Recommendations:* continue current medication regimen. well controlled * M51.36 Other intervertebral disc degeneration, lumbar region* Recommendations: * back pain is well controlled at this point. cont to stay active * G90.09 Other idiopathic peripheral autonomic neuropathy* Recommendations:* small fiber neuropathy following neurology off meds vit b12 didnt help either * K21.9 Gastro-esophageal reflux disease without esophagitis* Recommendations:* Continue omeprazole 40 mg QHS. * K80.20 Calculus of gallbladder without cholecystitis without obstruction* Recommendations:* per GI tolerating ursodiol well no recurrent pain * All* Follow up:* 4 months for medicare with labs cbc cmp lipid, testosterone, psa or sooner prn Functional Status Description No Information Available Mental Status Description No Information Available Referrals Description No Information Available
--- OUTSIDE RECORDS SUMMARY | 2023-06-21 15:55 | External Medical Summary | Continuity of Care Document ---
Author Name Unknown Organization [employer] Address [address] [place] [address] Phone [phone] Problems Active Problems Provider Date Hyperlipidemia Shubham [...] Directed 75units E29.1 Jose Miller, DO 01/21/2023 Ktqcacspau30sj Capsules Take 1 Capsule Daily 90caps K21.9 Jose Miller, DO 06/17/2021 Ebliyvfvpu75zs Tablets Take 1 Tablet Daily 90tabs I10 Jose Miller, DO 11/09/2018 Aspir-8181mg Tablets DR 1 po qd Mayra Leal, DO Travatan Z0.004% Solution Unknown ProbioticCapsules 1 by mouth every day 30caps Jose Miller, DO Tamsulosin HCL0.4mg Capsules Take 2 Capsules Daily 180caps N40.1 Jose Miller, DO Gyhedeuzpub29nk Tablets Take 1 Tablet Daily 90tabs E78.2 Jose Miller, DO Kqlqzinft3xe Tablets 1 tab po daily N40.1 Unkn own Gaviscon Extra [id number] Chewtabs Unknown Zcljeaim737mz Capsules 1 capsule tid K80.20 Unk nown History Medications Fszbeeir30ftq/0.5ML Suspension Rec one inj intramuscular 1units Jose Charlton Paul, DO 09/30/2022 - 03/18/2023 Immunizations CPT Code Status Date Vaccine Lot # [id number] Given 12/26/2022 Shingrix 19840 Given 09/30/2022 Shingrix 43723 Given 03/06/2021 Moderna Sars-Co v-2 (Cov-19) vacc,100 mcg/ 0.5 mL 12Y+EMR Doc Only 47796 Given 08/28/2020 Moderna Sars-Co v-2 (Cov-19) vacc,100 mcg/ 0.5 mL 12Y+EMR Doc Only 14928 Given 07/31/2020 Moderna Sars-Co v-2 (Cov-19) vacc,100 mcg/ 0.5 mL 12Y+EMR Doc Only 11468 Given 07/14/2017 Tdap (Tetanus, diphtheria & acel. pertussis) Adacel or Boostrix [id number] 28900 Refused 02/17/2023 Influenza Vac, Split, Preservative Free High Dose Age 65 & > 34407 Refused 01/27/2022 Influenza Vac, Split, Preservative Free High Dose Age 65 & > 14654 Refused 01/27/2022 Pneumococcal Conjugate-Pr evnar 20 12778 Refused 01/23/2021 Influenza Vaccine High Do se 0.5ML Age 65 & > 34372 Refused 01/23/2021 Pneumococcal Conjugate-Pr evnar 13 81821 Refused 07/10/2020 Moderna Sars-Co v-2 (Cov-19) vacc,100 mcg/ 0.5 mL 12Y+EMR Doc Only 47094 Refused 11/29/2019 Influenza Virus Vaccine, Quadrivalent, Im Use 09084 Refused 10/15/2018 Influenza Virus Vaccine, Quadrivalent, Im Use 75256 Refused 11/27/2017 Influenza Virus Vaccine, Quadrivalent, Im Use 33000 Refused 11/10/2016 Influenza Virus Vaccine, Quadrivalent, Im Use 07894 Refused 02/04/2016 Influenza Virus Vaccine, Quadrivalent, Im Use 64119 Refused 02/02/2015 Influenza Virus Vaccine, Quadrivalent, Im Use 20562 Refused 04/25/2014 Influenza Virus Vaccine, Quadrivalent, Im Use 91016 Refused 01/27/2014 Influenza Virus Vaccine, Quadrivalent, Im [...] 5'9.25" BMI (Body Mass Index) 28.5 kg/m2 [place] Body Weight 160 lb Results Test Acquired Date Facility Test Result H/L Range N ote Laboratory test finding 02/17/2023 [facility]. [address] [place] [address] [phone] Total Testoster 532 ng/dL 199-1586 1 CBC W/Diff 02/17/2023 [facility] [address] [place] [address] WBC 6.1 10^3/M3 3.1-9.2 RBC 4.99 10^6/M3 4.00-5.80 HGB 15.8 GR/DL 12.5-17.5 HCT 46.2 % 37.5-52.5 MCV 92.6 CUMICR 82.6-95.8 MCH 31.8 PICOGR 27.9-32.9 MCHC 34.3 % 32.6-35.4 RDW 13.5 % 11.4-14.6 PLT 248 10^3/M3 140-350 MPV 9.3 CUMICR 7.0-10.6 %Neut 45.9 % 40.0-75.0 %Lymph 41.5 % 17.0-45.0 %Tyler 10.7 % 1.0-11.0 %Eos 1.3 % 0.0-6.0 %Baso 0.6 % 0.0-2.0 #Neut 2.8 10^3/M3 1.5-8.0 #Lymph 2.5 10^3/M3 0.8-3.2 #Tyler 0.7 10^3/M3 0.0-0.8 #Eos 0.1 10^3/m3 0.0-0.4 #Baso 0.0 10^3/m3 0.0-0.2 Comp. Met 02/17/2023 [facility] [address] [place], [place] [address] [phone] Glucose 102 mg/dL 70-110 BUN 13 mg/dL [...] 2.0-3.4 GFR 71 ML/MIN/1.73SQM >60 Lipid 02/17/2023 [facility] [address] [place], [place] [address] [phone] Cholesterol 175 mg/dL 0-200 2 Triglyceride 71 mg/dL 0-150 3 HDLD 63 mg/dL See Comment 4 Measured LDL 97 mg/dL 0-130 5 Calc VLDL 14.2 mg/dL See Comment 6 Chol/HDL 2.8 RATIO See Comment 7 Non-HDL 112 mg/dL See Comment 8 PSA, Free And Total 11/25/[address] [place] [address] [phone] PSA, Total 0.5 ng/mL Normal < Or = 4.0 PSA, Free 0.2 ng/mL Normal PSA, % Free 40 %(calc) Normal >25 9 Laboratory test finding 11/25/[address] [place] [address] [phone] Clinical PDF Report [id number] SEE IMAGE Laboratory test finding 09/30/2022 [facility] [address] [place] [address] [phone] Total Testoster 845 ng/dL 199- 1586 10 CBC W/Diff 09/30/2022 [facility] [address] [place] [address] [phone] WBC 5.4 10^3/M3 3.1- 9.2 RBC 4.95 10^6/M3 4.00-5.80 HGB 15.5 GR/DL 12.5-17.5 HCT 46.3 % 37.5-52.5 MCV 93.4 CUMICR 82.6-95.8 MCH 31.2 PICOGR 27.9-32.9 MCHC 33.4 % 32.6-35.4 RDW 13.7 % 11.4-14.6 PLT 264 10^3/M3 140-350 MPV 9.2 CUMICR 7.0-10.6 %Neut 50.3 % 40.0-75.0 %Lymph 37.1 % 17.0-45.0 %Tyler 11.0 % 1.0-11.0 %Eos 1.0 % 0.0-6.0 %Baso 0.6 % 0.0-2.0 #Neut 2.7 10^3/M3 1.5-8.0 #Lymph 2.0 10^3/M3 0.8-3.2 #Tyler 0.6 10^3/M3 0.0-0.8 #Eos 0.1 10^3/m3 0.0-0.4 #Baso 0.0 10^3/m3 0.0-0.2 Comp. Met 09/30/2022 [facility] [address] [place] [address] [phone] Glucose 97 mg/dL 70-110 BUN 11 mg/dL [...] 2.0-3.4 GFR 71 ML/MIN/1.73SQM >60 Lipid 09/30/2022 [facility] [address] [place], [place] [address] [phone] Cholesterol 172 mg/dL 0-200 11 Triglyceride 66 [...] 30 93 9 (3)Joao et al.:BURTON 277: 4929-9675 (1996) (4)Timothyona et al.:BURTON 279: 9483-4390 (1997) (x)These estimates vary with age, ethnicity, [...] Target Procedures Date Code Description Status 02/17/2023 00220 Venipuncture Routine Complet ed 02/17/2023 3079F PVRP Diastolic BP 80-89 MMHG Completed 02/17/2023 3074F PVRP Systolic BP <130 mmHg C ompleted 11/25/2022 33557 Venipuncture Routine Complet ed 09/30/2022 28403 Venipuncture Routine Complet ed 09/30/2022 3079F PVRP Diastolic BP 80-89 MMHG Completed 09/30/2022 3075F PVRP Systolic BP 130 To 139 MMHG Completed 08/20/2021 [id number] Colonoscopy Completed Medical Devices Description No Information Available Encounters Type Date Location Provider Dx Diagnosis Office Visit 03/18/2023 10:30a [facility] Liliana Alanis PA-C U07.1 Covid-19 Office Visit 02/17/2023 8:30a [facility] Jose Miller, DO N40.1 Benign prostatic hyperplasia with lower urinary tract symp 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 Essential (primary) hypertension E78.2 Mixed hyperlipidemia M51.36 Other intervertebral disc degeneration, lumbar region G90.09 Other idiopathic per ipheral autonomic neuropathy K21.9 Gastro-esophageal re flux disease without esophagitis K80.20 Calculus of gallblad fior w/o cholecystitis w/o obstruction Office Visit 09/30/2022 8:45a [facility] Jose Miller, DO E29.1 Testicular hypofunction N40.1 [...] with lower urinary tract symptoms Lab - [facility] 11/25/2022 N13.8 Other obstructive and reflux uropathy Jose Miller, DO 11/25/2022 N13.8 Other obstructive and reflux uropathy Lab - [facility] 09/30/2022 E29.1 Testicular hypofunction Bryce choudhuryjosse Miller, [...] Miller DO at [facility] 03/18/2023 - Liliana Alanis PA-C* U07.1 Covid-19* [...]
--- OUTSIDE RECORDS SUMMARY | 2023-06-21 15:55 | External Medical Summary | Continuity of Care Document ---
Author Name Unknown Organization [employer] Address [address] [place] [address] Phone [phone] Problems Active Problems Provider Date Hyperlipidemia Shubham Leal, DO Onset: 1 03/23/2012 Essential hypertension oJse Miller DO O nset: 05/19/2016 Gastroesophageal reflux [...] Directed 75units E29.1 Jose Miller, DO 01/21/[address] Take 1 Capsule Daily 90caps K21.9 Jose Miller, DO 06/17/2021 Oqffvkogkw33gy Tablets Take 1 Tablet Daily 90tabs I10 Jose Miller, DO 11/09/2018 Aspir-8181mg Tablets DR 1 po qd Mayra Leal, DO Travatan Z0.004% Solution Unknown ProbioticCapsules 1 by mouth every day 30caps Jose Miller, DO Tamsulosin HCL0.4mg Capsules Take 2 Capsules Daily 180caps N40.1 Jose Miller, DO Dauwxjloves61qd Tablets Take 1 Tablet Daily 90tabs E78.2 Jose Miller, DO Agtlhereo2mc Tablets 1 tab po daily N40.1 Unkn own Gaviscon Extra Qstndrlh846-847kb Chewtabs Unknown Aemlzndj096ym Capsules 1 capsule tid K80.20 Unk nown History Medications Paxlovid (300/100)20x 150 mg & 10 x 100mg TBPK one dose by mouth (including ritonavir) per pack instructions x 5 days 30units U07.1 Jose Charlton Paul, DO 03/18/2023 - 03/26/2023 Wdcztoee49lpj/0.5ML Suspension Rec one inj intramuscular 1units Jose hCarlton Paul, DO 09/30/2022 - 03/18/2023 Immunizations CPT Code Status Date Vaccine Lot # [id number] Given 12/26/2022 Shingrix 75781 Given 09/30/2022 Shingrix 49328 Given 03/06/2021 Moderna Sars-Co v-2 (Cov-19) vacc,100 mcg/ 0.5 mL 12Y+EMR Doc Only 14198 Given 08/28/2020 Moderna Sars-Co v-2 (Cov-19) vacc,100 mcg/ 0.5 mL 12Y+EMR Doc Only 27746 Given 07/31/2020 Moderna Sars-Co v-2 (Cov-19) vacc,100 mcg/ 0.5 mL 12Y+EMR Doc Only 54737 Given 07/14/2017 Tdap (Tetanus, diphtheria & acel. pertussis) Adacel or Boostrix [id number] Refused 02/17/2023 Influenza Vac, Split, Preservative Free High Dose Age 65 & > 56225 Refused 01/27/2022 Influenza Vac, Split, Preservative Free High Dose Age 65 & > 92498 Refused 01/27/2022 Pneumococcal Conjugate-Pr evnar 20 14384 Refused 01/23/2021 Influenza Vaccine High Do se 0.5ML Age 65 & > 22589 Refused 01/23/2021 Pneumococcal Conjugate-Pr evnar 13 17936 Refused 07/10/2020 Moderna Sars-Co v-2 (Cov-19) vacc,100 mcg/ 0.5 mL 12Y+EMR Doc Only 63266 Refused 11/29/2019 Influenza Virus Vaccine, Quadrivalent, Im Use 48457 Refused 10/15/2018 Influenza Virus Vaccine, Quadrivalent, Im Use 45819 Refused 11/27/2017 Influenza Virus Vaccine, Quadrivalent, Im Use 13751 Refused 11/10/2016 Influenza Virus Vaccine, Quadrivalent, Im Use 75840 Refused 02/04/2016 Influenza Virus Vaccine, Quadrivalent, Im Use 42225 Refused 02/02/2015 Influenza Virus Vaccine, Quadrivalent, Im Use 41329 Refused 04/25/2014 Influenza Virus Vaccine, Quadrivalent, Im Use 05160 Refused 01/27/2014 Influenza Virus Vaccine, Quadrivalent, Im Use Vital Signs Date Vital Result Comment 03/26/2023 3:09pm BP Systolic 138 mmHg BP Diastolic 84 mmHg Body Temperature 97.1 F Heart Rate 107 /min Respiratory Rate 14 /min Weight 192.25 lb Weight 87.205 kg Height 69.25 inches 5'9.25" BMI (Body Mass Index) 28.2 kg/m2 [place] Body Weight 160 lb 03/18/2023 10:16am BP Systolic 132 mmHg BP Diastolic 84 mmHg Body Temperature 100.4 F Heart Rate 98 /min Respiratory Rate 14 /min Weight 194.38 lb Weight 88.168 kg Results Test Acquired Date Facility Test Result H/L Range N ote Laboratory test finding 02/17/2023 [facility] [address] [place], [place] [address] [phone] Total Testoster 532 ng/dL 199-1586 1 CBC W/Diff 02/17/2023 [facility] [address] [place] [address] WBC 6.1 10^3/M3 3.1-9.2 RBC 4.99 10^6/M3 4.00-5.80 HGB 15.8 GR/DL 12.5-17.5 HCT 46.2 % 37.5-52.5 MCV 92.6 CUMICR 82.6-95.8 MCH 31.8 PICOGR 27.9-32.9 MCHC 34.3 % 32.6-35.4 RDW 13.5 % 11.4-14.6 PLT 248 10^3/M3 140-350 MPV 9.3 CUMICR 7.0-10.6 %Neut 45.9 % 40.0-75.0 %Lymph 41.5 % 17.0-45.0 %[place] 10.7 % 1.0-11.0 %Eos 1.3 % 0.0-6.0 %Baso 0.6 % 0.0-2.0 #Neut 2.8 10^3/M3 1.5-8.0 #Lymph 2.5 10^3/M3 0.8-3.2 #[place] 0.7 10^3/M3 0.0-0.8 #Eos 0.1 10^3/m3 0.0-0.4 #Baso 0.0 10^3/m3 0.0-0.2 Comp. Met 02/17/2023 [facility] [address] [place] [address] [phone] Glucose 102 mg/dL 70-110 BUN 13 mg/dL [...] 2.0-3.4 GFR 71 ML/MIN/1.73SQM >60 Lipid 02/17/2023 [facility] [address] [place], [place] [address] [phone] Cholesterol 175 mg/dL 0-200 2 Triglyceride 71 mg/dL 0-150 3 HDLD 63 mg/dL See Comment 4 Measured LDL 97 mg/dL 0-130 5 Calc VLDL 14.2 mg/dL See Comment 6 Chol/HDL 2.8 RATIO See Comment 7 Non-HDL 112 mg/dL See Comment 8 PSA, Free And Total 11/25/[address] [facility] [place] [address] [phone] PSA, Total 0.5 ng/mL Normal < Or = 4.0 PSA, Free 0.2 ng/mL Normal PSA, % Free 40 %(calc) Normal >25 9 Laboratory test finding 11/25/[address] [facility] [place] [address] [phone] Clinical PDF Report [id number] SEE IMAGE Laboratory test finding 09/30/2022 [facility] [address] [place], [place] [address] [phone] Total Testoster 845 ng/dL 199- 1586 10 CBC W/Diff 09/30/2022 [facility] [address] [place] [address] [phone] WBC 5.4 10^3/M3 3.1- 9.2 RBC 4.95 10^6/M3 4.00-5.80 HGB 15.5 GR/DL 12.5-17.5 HCT 46.3 % 37.5-52.5 MCV 93.4 CUMICR 82.6-95.8 MCH 31.2 PICOGR 27.9-32.9 MCHC 33.4 % 32.6-35.4 RDW 13.7 % 11.4-14.6 PLT 264 10^3/M3 140-350 MPV 9.2 CUMICR 7.0-10.6 %Neut 50.3 % 40.0-75.0 %Lymph 37.1 % 17.0-45.0 %[place] 11.0 % 1.0-11.0 %Eos 1.0 % 0.0-6.0 %Baso 0.6 % 0.0-2.0 #Neut 2.7 10^3/M3 1.5-8.0 #Lymph 2.0 10^3/M3 0.8-3.2 #[place] 0.6 10^3/M3 0.0-0.8 #Eos 0.1 10^3/m3 0.0-0.4 #Baso 0.0 10^3/m3 0.0-0.2 Comp. Met 09/30/2022 [facility] [address] [place] [address] [phone] Glucose 97 mg/dL 70-110 BUN 11 mg/dL [...] 2.0-3.4 GFR 71 ML/MIN/1.73SQM >60 Lipid 09/30/2022 [facility] [address] [place] [address] [phone] Cholesterol 172 mg/dL 0-200 11 Triglyceride 66 [...] 19 < or = 30 93 9 (3)Jaoo et al.:BURTON 277: 9279-5197 (1996) (4)Timothyona et al.:BURTON 279: 1918-6411 (1997) (x)These estimates vary with age, ethnicity, [...] mind. PSA was performed using the Zechariah [place] Immunoassay method. Values obtained from different assay [...] e/m vis it add on Completed 02/17/2023 75974 Venipuncture Routine Complet ed 02/17/2023 3079F PVRP Diastolic BP 80-89 MMHG Completed 02/17/2023 3074F PVRP Systolic BP <130 mmHg C ompleted 11/25/2022 47936 Venipuncture Routine [facility] ed 09/30/2022 53437 Venipuncture Routine [facility] ed 09/30/2022 3079F PVRP Diastolic BP 80-89 MMHG Completed 09/30/2022 3075F PVRP Systolic BP 130 To 139 MMHG Completed 08/20/2021 35178614 Colonoscopy Completed Medical Devices Description No Information Available Encounters Type Date Location Provider Dx Diagnosis Office Visit 03/26/2023 3:30p [facility] Jose Miller, DO R22.32 Localized swelling, mass and lump, left upper limb M79.642 Pain in left hand Office Visit 03/18/2023 10:30a [facility] Liliana Alanis PA-C U07.1 Covid-19 Office Visit 02/17/2023 8:30a [facility] Jose Miller, DO N40.1 Benign prostatic hyperplasia with lower urinary tract symp 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 Essential (primary) hypertension E78.2 Mixed hyperlipidemia M51.36 Other intervertebral disc degeneration, lumbar region G90.09 Other idiopathic per ipheral autonomic neuropathy K21.9 Gastro-esophageal re flux disease without esophagitis K80.20 Calculus of gallblad fior w/o cholecystitis w/o obstruction Office Visit 09/30/2022 8:45a [facility] Jose Miller, DO E29.1 Testicular hypofunction [...] 02/17/2023 I10 Essential (primary) hyperten terry Jose Latesha Miller, DO 02/17/2023 E78.2 Mixed hyperlipidemia Jose [...] lower urinary tract symptoms Lab - [facility] 11/25/2022 N13.8 Other obstructive and reflux uropathy Jose Miller, DO 11/25/2022 N13.8 Other obstructive and reflux uropathy Lab - [facility] 09/30/2022 E29.1 Testicular hypofunction Bryce martell Latesha [...] 9:00 am - Jose Miller DO at [facility] 03/26/2023 - Jose Miller DO* R22.32 Localized [...]
--- OUTSIDE RECORDS SUMMARY | 2023-06-21 15:55 | External Medical Summary ---
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 Name Role Phone Raya Martinez P[facility]-Referring Provider [phone] Allergies and Adverse Reactions Code CodeSystem Allergy Name Reaction Severity Timing Informa tion Concern Status NA RxNorm NKDA NA NA Start Date---/--/---- Ac tive Conditions or Problems Problem Name Code CodeSystem CodeDescription Concern St atus Timing Information - GERD ICD PMH --/--/---- -StartDate, --/--/-----EndDate - HLD ICD PMH --/--/---- -StartDate, --/--/-----EndDate - glaucoma ICD PMH --/--/--- --StartDate, --/--/-----EndDate - Hypertension ICD PMH --/-- /-----StartDate, --/--/-----EndDate - BPH ICD PMH --/--/---- -StartDate, --/--/-----EndDate - T&A ICD PSH --/--/---- -StartDate, --/--/-----EndDate Medications Code CodeSystem Medication Strength Route Dose/Frequency Ti roxanna Information NA RxNorm Probiotic Formula (Bacillus Coagulans) - oral 1 Capsule orally 1 time a day 10/15/2016-St artDate --/--/-----En dDate 20020424 RxNorm Omeprazole 40 MG Oral 1 time a day 07/24/19 22- artDate 07/23/2021-En dDate 218783 RxNorm Aspir-Low 81 MG Oral 1 time a day 4- artDate 04/16/2023-En dDate NA RxNorm Gaviscon Extra Strength 160-105 MG Oral 1 time a day 04/16/2023- artDate 04/16/2023-En dDate 340563 RxNorm Lisinopril 40 MG Oral 1 time a day 04/16/19 24- artDate 04/16/2023-En dDate 109841 RxNorm Simvastatin 20 MG Oral 1 time a day 024- artDate 04/16/2023-En dDate 638899 RxNorm Tadalafil 5 MG Oral 1 time a day 4- artDate 04/16/2023-En dDate 908975 RxNorm Tamsulosin HCl 0.4 MG Oral 1 time a day 03/2023- artDate 04/16/2023-En dDate 5257633 RxNorm Testosterone 1.62 % Transdermal use as directed 04/16/2023- artDate 04/16/2023-En dDate 430817 RxNorm Travatan Z 0.004 % Ophthalmic use as directed - artDate 04/16/2023-En dDate 512428 RxNorm Ursodiol 300 MG Oral 1 Capsule by mouth 3 times a day 04/16/2023- artDate 04/10/2024-En dDate 2320789 RxNorm Suprep Bowel Prep Kit 1.6 g-3.13 g-17.5 g/177 mL oral 1 Kit by mouth as directed 07/03/2016- artDate --/--/-----En dDate 317219 RxNorm calcium carbonate 600 mg oral 2 Tablets by mouth 1 time a day 10/15/2016- artDate --/--/-----En dDate 174770 RxNorm calcium carbonate 600 mg oral 2 Tablets by mouth 1 time a day 10/15/2016- artDate --/--/-----En dDate 370017 RxNorm PriLOSEC OTC 20 mg oral 1 Table t by mouth every other day in the morning 10/15/2016- artDate --/--/-----En dDate 601832 RxNorm PriLOSEC OTC 20 mg oral 1 Table t by mouth every other day in the morning 10/15/2016- artDate --/--/-----En dDate NA RxNorm Probiotic Formula (Bacillus Coagulans) - oral 1 Capsule orally 1 time a day 10/15/2016- artDate --/--/-----En dDate NA RxNorm Sutab 1479-225-1 88 MG Oral 1 Kit by mouth use as directed [facility] SEE PHARMACY NOTES 06/18/2021- artDate 07/18/2021-En dDate 923557 RxNorm Tadalafil 5 MG Oral 07/23/2021- artDate 07/23/2021-En dDate 277154 RxNorm Tamsulosin HCl 0.4 MG Oral 2 times a day 12/2021- artDate 07/23/2021-En dDate 0680537 RxNorm Testosterone 20.25 MG/ACT (1.62%) Transdermal 3 Pumps 07/23/2021- artDate 07/23/2021-En dDate 401134 RxNorm Ursodiol 300 MG Oral 1 Capsule by mouth 3 times a day 11/01/2021- artDate 01/30/2022-En dDate 548760 RxNorm Ursodiol 300 MG Oral 1 Capsule by mouth 3 times a day 11/04/2021- artDate 02/02/2022-En dDate 722769 RxNorm Ursodiol 300 MG Oral 1 Capsule by mouth 3 times a day 11/25/2021- artDate 11/20/2022-En dDate 575521 RxNorm Ursodiol 300 MG Oral 1 Capsule by mouth 3 times a day 08/07/2022- artDate 02/03/2023-En dDate 495803 RxNorm Ursodiol 300 MG Oral 1 Capsule by mouth 3 times a day 02/13/2023-St artDate 11/10/2023-En dDate 727763 RxNorm Ursodiol 300 MG Oral 1 Capsule by mouth 3 times a day 04/14/2023-St artDate 07/13/2023-En dDate Reason For Visit - Chief Complaint FHx/o Colon CA, GERD, Epigastric abdominal painThe following was obtained under the supervision of Dr. Crawley.66 year old male presents today for a procedure follow up. In July he was c/o belching, epigastric pain, nocturnal pain that had all impro - (Oct 21 2021) Functional and Cognitive Status Functional Status: No Functional found Cognitive Status: No Cognitive found Instructions None * Instructions not indicated (situation) [[id number]] Procedures Code CodeSystem Procedure Name Date Status Loca tion 86843 PROCEDURE COLON WITH POLYPECTOMY 08/20/2021 Completed [facility] Telephone: [phone] Address: [address] [place] [address] PROCEDURE COLON WITH BIOPSY 08/20/2021 Completed [facility] Telephone: [phone] Address: [address] [place] [address] PROCEDURE COLONOSCOPY 10/15/2016 Completed [facility] Telephone: [phone] Address: [address] [place] [address] Social History Social History Observation Description Dates Observed Current Smoking Status Never smoker 10/21/2021 Sex Male [birth year] 6 Vital Signs Code CodeSystem Vitals Name Timing Information Value and Units 8302-2 LOINC Height 04/16/2023 69 [in_i] 94121-6 LOINC Weight 04/16/2023 194 [lb_av] 24224-0 LOINC BMI 04/16/2023 28.65 kg/m2 8310-5 LOINC Body Temperature 04/16/2023 97.7 [de gf] 8302-2 LOINC Height 10/21/2021 69 [in_i] 3141-9 LOINC Weight 10/21/2021 196 [lb_av] 22383-6 LOINC BMI 10/21/2021 28.9 kg/m2 8480-6 LOINC BP-Systolic 10/21/2021 134 mm[Hg] 8462-4 LOINC BP-Diastolic 10/21/2021 72 mm[Hg] 8867-4 LOINC Pulse 10/21/2021 94 /min 8302-2 LOINC Height 08/20/2021 69 [in_i] 3141-9 LOINC Weight 08/20/2021 195 [lb_av] 32577-3 LOINC BMI 08/20/2021 28.8 kg/m2 8302-2 LOINC Height 08/20/2021 69 [in_i] 3141-9 LOINC Weight 08/20/2021 195 [lb_av] 8302-2 LOINC Height 08/20/2021 69 [in_i] 3141-9 LOINC Weight 08/20/2021 190 [lb_av] 24022-3 LOINC BMI 08/20/2021 28.1 kg/m2 8480-6 LOINC BP-Systolic 08/20/2021 130 mm[Hg] 8462-4 LOINC BP-Diastolic 08/20/2021 91 mm[Hg] 9279-1 LOINC Resp 08/20/2021 18 /min 8310-5 LOINC Body Temperature 08/20/2021 97.4 [de gf] 8302-2 LOINC Height 08/05/2021 69 [in_i] 3141-9 LOINC Weight 08/05/2021 195 [lb_av] 06268-9 LOINC BMI 08/05/2021 28.8 kg/m2 8480-6 LOINC BP-Systolic 08/05/2021 158 mm[Hg] 8462-4 LOINC BP-Diastolic 08/05/2021 95 mm[Hg] 9279-1 LOINC Resp 08/05/2021 18 /min 8310-5 LOINC Body Temperature 08/05/2021 98.2 [de gf] 8302-2 LOINC Height 08/05/2021 69 [in_i] 3141-9 LOINC Weight 08/05/2021 195 [lb_av] 92863-6 LOINC BMI 08/05/2021 28.8 kg/m2 8302-2 LOINC Height 08/05/2021 69 [in_i] 3141-9 LOINC Weight 08/05/2021 195 [lb_av] 8302-2 LOINC Height 07/23/2021 69 [in_i] 3141-9 LOINC Weight 07/23/2021 200 [lb_av] 96615-0 LOINC BMI 07/23/2021 29.5 kg/m2 8480-6 LOINC BP-Systolic 07/23/2021 131 mm[Hg] 8462-4 LOINC BP-Diastolic 07/23/2021 70 mm[Hg] 8867-4 LOINC Pulse 07/23/2021 84 /min
--- OUTSIDE RECORDS SUMMARY | 2023-06-21 15:55 | External Medical Summary | Continuity of Care Document ---
Author Name Unknown Organization [employer] [facility] Address [address] [place] [address] Phone [phone] Problems Active Problems Provider Date Hyperlipidemia Shubham [...] Directed 75units E29.1 Jose Miller, DO 01/21/2023 Jilgegleek78un Capsules Take 1 Capsule Daily 90caps K21.9 Jose Miller, DO 06/17/2021 Niyzovhdvg49sf Tablets Take 1 Tablet Daily 90tabs I10 Jose Miller, DO 11/09/2018 Aspir-[address] Tablets DR 1 po qd Mayra Leal, DO Travatan Z0.004% Solution Unknown ProbioticCapsules 1 by mouth every day 30caps Jose Miller, DO Tamsulosin HCL0.4mg Capsules Take 2 Capsules Daily 180caps N40.1 Jose Miller, DO Gkdbjbgbznc88qj Tablets Take 1 Tablet Daily 90tabs E78.2 Jose Miller, DO Jefsoulmi9fs Tablets 1 tab po daily N40.1 Unkn own Gaviscon Extra Ccwtmwnx445-663in Chewtabs Unknown Whwxikjg783hp Capsules 1 capsule tid K80.20 Unk nown History Medications Vzldwivz60lye/0.5ML Suspension Rec one inj intramuscular 1units Jose Charlton Paul, DO 09/30/2022 - 03/18/2023 Immunizations CPT Code Status Date Vaccine Lot # [id number] Given 12/26/2022 Shingrix 96968 Given 09/30/2022 Shingrix 50417 Given 03/06/2021 Moderna Sars-Co v-2 (Cov-19) vacc,100 mcg/ 0.5 mL 12Y+EMR Doc Only 91788 Given 08/28/2020 Moderna Sars-Co v-2 (Cov-19) vacc,100 mcg/ 0.5 mL 12Y+EMR Doc Only 21925 Given 07/31/2020 Moderna Sars-Co v-2 (Cov-19) vacc,100 mcg/ 0.5 mL 12Y+EMR Doc Only 75642 Given 07/14/2017 Tdap (Tetanus, diphtheria & acel. pertussis) Adacel or Boostrix [id number] 03684 Refused 02/17/2023 Influenza Vac, Split, Preservative Free High Dose Age 65 & > 10756 Refused 01/27/2022 Influenza Vac, Split, Preservative Free High Dose Age 65 & > 01559 Refused 01/27/2022 Pneumococcal Conjugate-Pr evnar 20 17003 Refused 01/23/2021 Influenza Vaccine High Do se 0.5ML Age 65 & > 30086 Refused 01/23/2021 Pneumococcal Conjugate-Pr evnar 13 01485 Refused 07/10/2020 Moderna Sars-Co v-2 (Cov-19) vacc,100 mcg/ 0.5 mL 12Y+EMR Doc Only 07249 Refused 11/29/2019 Influenza Virus Vaccine, Quadrivalent, Im Use 56096 Refused 10/15/2018 Influenza Virus Vaccine, Quadrivalent, Im Use 73040 Refused 11/27/2017 Influenza Virus Vaccine, Quadrivalent, Im Use 14353 Refused 11/10/2016 Influenza Virus Vaccine, Quadrivalent, Im Use 52043 Refused 02/04/2016 Influenza Virus Vaccine, Quadrivalent, Im Use 23779 Refused 02/02/2015 Influenza Virus Vaccine, Quadrivalent, Im Use 24490 Refused 04/25/2014 Influenza Virus Vaccine, Quadrivalent, Im Use 12605 Refused 01/27/2014 Influenza Virus Vaccine, Quadrivalent, Im [...] 5'9.25" BMI (Body Mass Index) 28.5 kg/m2 [place] Body Weight 160 lb Results Test Acquired Date Facility Test Result H/L Range N ote Laboratory test finding 02/17/2023 [facility] [address] [place] [address] [phone] Total Testoster 532 ng/dL 199-1586 1 CBC W/Diff 02/17/2023 [facility] [address] [place] [address] [phone] WBC 6.1 10^3/M3 3.1-9.2 RBC 4.99 10^6/M3 4.00-5.80 HGB 15.8 GR/DL 12.5-17.5 HCT 46.2 % 37.5-52.5 MCV 92.6 CUMICR 82.6-95.8 MCH 31.8 PICOGR 27.9-32.9 MCHC 34.3 % 32.6-35.4 RDW 13.5 % 11.4-14.6 PLT 248 10^3/M3 140-350 MPV 9.3 CUMICR 7.0-10.6 %Neut 45.9 % 40.0-75.0 %Lymph 41.5 % 17.0-45.0 %Ray 10.7 % 1.0-11.0 %Eos 1.3 % 0.0-6.0 %Baso 0.6 % 0.0-2.0 #Neut 2.8 10^3/M3 1.5-8.0 #Lymph 2.5 10^3/M3 0.8-3.2 #Ray 0.7 10^3/M3 0.0-0.8 #Eos 0.1 10^3/m3 0.0-0.4 #Baso 0.0 10^3/m3 0.0-0.2 Comp. Met 02/17/2023 [facility] [address] [place], [place] [address] [phone] Glucose 102 mg/dL 70-110 BUN 13 mg/dL [...] 2.0-3.4 GFR 71 ML/MIN/1.73SQM >60 Lipid 02/17/2023 [facility] [address] [place], [place] [address] [phone] Cholesterol 175 mg/dL 0-200 2 Triglyceride 71 mg/dL 0-150 3 HDLD 63 mg/dL See Comment 4 Measured LDL 97 mg/dL 0-130 5 Calc VLDL 14.2 mg/dL See Comment 6 Chol/HDL 2.8 RATIO See Comment 7 Non-HDL 112 mg/dL See Comment 8 PSA, Free And Total 11/25/[address] [facility] [place] [address] [phone] PSA, Total 0.5 ng/mL Normal < Or = 4.0 PSA, Free 0.2 ng/mL Normal PSA, % Free 40 %(calc) Normal >25 9 Laboratory test finding 11/25/[address] [facility] [place] [address] [phone] Clinical PDF Report [id number] SEE IMAGE Laboratory test finding 09/30/2022 [facility] [address] [place] [address] [phone] Total Testoster 845 ng/dL 199- 1586 10 CBC W/Diff 09/30/2022 [facility] [address] [place] [address] [phone] WBC 5.4 10^3/M3 3.1- 9.2 RBC 4.95 10^6/M3 4.00-5.80 HGB 15.5 GR/DL 12.5-17.5 HCT 46.3 % 37.5-52.5 MCV 93.4 CUMICR 82.6-95.8 MCH 31.2 PICOGR 27.9-32.9 MCHC 33.4 % 32.6-35.4 RDW 13.7 % 11.4-14.6 PLT 264 10^3/M3 140-350 MPV 9.2 CUMICR 7.0-10.6 %Neut 50.3 % 40.0-75.0 %Lymph 37.1 % 17.0-45.0 %Ray 11.0 % 1.0-11.0 %Eos 1.0 % 0.0-6.0 %Baso 0.6 % 0.0-2.0 #Neut 2.7 10^3/M3 1.5-8.0 #Lymph 2.0 10^3/M3 0.8-3.2 #Ray 0.6 10^3/M3 0.0-0.8 #Eos 0.1 10^3/m3 0.0-0.4 #Baso 0.0 10^3/m3 0.0-0.2 Comp. Met 09/30/2022 [facility] [address] [place] [address] [phone] Glucose 97 mg/dL 70-110 BUN 11 mg/dL [...] 2.0-3.4 GFR 71 ML/MIN/1.73SQM >60 Lipid 09/30/2022 [facility] [address] [place], [place] [address] [phone] Cholesterol 172 mg/dL 0-200 11 Triglyceride 66 [...] 30 93 9 (3)Joao et al.:BURTON 277: 7203-8902 (1996) (4)Timothyona et al.:BURTON 279: 4241-5230 (1997) (x)These estimates vary with age, ethnicity, [...] Target Procedures Date Code Description Status 02/17/2023 00792 Venipuncture Routine Complet ed 02/17/2023 3079F PVRP Diastolic BP 80-89 MMHG Completed 02/17/2023 3074F PVRP Systolic BP <130 mmHg C ompleted 11/25/2022 70929 Venipuncture Routine Complet ed 09/30/2022 98881 Venipuncture Routine Complet ed 09/30/2022 3079F PVRP Diastolic BP 80-89 MMHG Completed 09/30/2022 3075F PVRP Systolic BP 130 To 139 MMHG Completed 08/20/2021 [id number] Colonoscopy Completed Medical Devices Description No Information Available Encounters Type Date Location Provider Dx Diagnosis Office Visit 03/18/2023 10:30a [facility] Liliana Alanis PA-C U07.1 Covid-19 Office Visit 02/17/2023 8:30a [facility] Jose Miller, DO N40.1 Benign prostatic hyperplasia with lower urinary tract symp 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 Essential (primary) hypertension E78.2 Mixed hyperlipidemia M51.36 Other intervertebral disc degeneration, lumbar region G90.09 Other idiopathic per ipheral autonomic neuropathy K21.9 Gastro-esophageal re flux disease without esophagitis K80.20 Calculus of gallblad fior w/o cholecystitis w/o obstruction Office Visit 09/30/2022 8:45a [facility] Jose Miller, DO E29.1 Testicular hypofunction [...] with lower urinary tract symptoms Lab - [facility] 11/25/2022 N13.8 Other obstructive and reflux uropathy Jose Miller, DO 11/25/2022 N13.8 Other obstructive and reflux uropathy Lab - [facility] 09/30/2022 E29.1 Testicular hypofunction Bryce choudhuryjosse Miller, [...] am - Jose Miller DO at [facility] 03/18/2023 - Liliana Alanis PA-C* U07.1 [...]
--- OUTSIDE RECORDS SUMMARY | 2023-06-21 15:55 | External Medical Summary | Continuity of Care Document ---
Author Name Unknown Organization [employer] Address [address] [place] [address] Phone [phone] Problems Active Problems Provider Date Hyperlipidemia Shubham [...] Directed 75units E29.1 Jose Miller, DO 01/21/[address] Take 1 Capsule Daily 90caps K21.9 Jose Miller, DO 06/17/2021 Yeyjwdvmmp29ds Tablets Take 1 Tablet Daily 90tabs I10 Jose Miller, DO 11/09/2018 Aspir-8181mg Tablets DR 1 po qd Mayra Leal, DO Travatan Z0.004% Solution Unknown ProbioticCapsules 1 by mouth every day 30caps Jose Miller, DO Tamsulosin HCL0.4mg Capsules Take 2 Capsules Daily 180caps N40.1 Jose Miller, DO Hcwpefzenbi82mx Tablets Take 1 Tablet Daily 90tabs E78.2 Jose Miller, DO Yvfyheoiq8jp Tablets 1 tab po daily N40.1 Unkn own Gaviscon Extra Sxsqwsyg742-666oq Chewtabs Unknown Jhrgppno274ka Capsules 1 capsule tid K80.20 Unk nown History Medications Paxlovid (300/100)20x 150 mg & 10 x 100mg TBPK one dose by mouth (including ritonavir) per pack instructions x 5 days 30units U07.1 Jose Charlton Paul, DO 03/18/2023 - 03/26/2023 Apcroafy59nbi/0.5ML Suspension Rec one inj intramuscular 1units Jose Charlton Paul, DO 09/30/2022 - 03/18/2023 Immunizations CPT Code Status Date Vaccine Lot # [id number] Given 12/26/2022 Shingrix 82141 Given 09/30/2022 Shingrix 65478 Given 03/06/2021 Moderna Sars-Co v-2 (Cov-19) vacc,100 mcg/ 0.5 mL 12Y+EMR Doc Only 83867 Given 08/28/2020 Moderna Sars-Co v-2 (Cov-19) vacc,100 mcg/ 0.5 mL 12Y+EMR Doc Only 95691 Given 07/31/2020 Moderna Sars-Co v-2 (Cov-19) vacc,100 mcg/ 0.5 mL 12Y+EMR Doc Only 44689 Given 07/14/2017 Tdap (Tetanus, diphtheria & acel. pertussis) Adacel or Boostrix [id number] 06463 Refused 02/17/2023 Influenza Vac, Split, Preservative Free High Dose Age 65 & > 82377 Refused 01/27/2022 Influenza Vac, Split, Preservative Free High Dose Age 65 & > 35876 Refused 01/27/2022 Pneumococcal Conjugate-Pr evnar 20 35455 Refused 01/23/2021 Influenza Vaccine High Do se 0.5ML Age 65 & > 51679 Refused 01/23/2021 Pneumococcal Conjugate-Pr evnar 13 68086 Refused 07/10/2020 Moderna Sars-Co v-2 (Cov-19) vacc,100 mcg/ 0.5 mL 12Y+EMR Doc Only 00990 Refused 11/29/2019 Influenza Virus Vaccine, Quadrivalent, Im Use 55687 Refused 10/15/2018 Influenza Virus Vaccine, Quadrivalent, Im Use 69282 Refused 11/27/2017 Influenza Virus Vaccine, Quadrivalent, Im Use 80886 Refused 11/10/2016 Influenza Virus Vaccine, Quadrivalent, Im Use 94383 Refused 02/04/2016 Influenza Virus Vaccine, Quadrivalent, Im Use 38840 Refused 02/02/2015 Influenza Virus Vaccine, Quadrivalent, Im Use 82794 Refused 04/25/2014 Influenza Virus Vaccine, Quadrivalent, Im Use 21695 Refused 01/27/2014 Influenza Virus Vaccine, Quadrivalent, Im Use Vital Signs Date Vital Result Comment 03/26/2023 3:09pm BP Systolic 138 mmHg BP Diastolic 84 mmHg Body Temperature 97.1 F Heart Rate 107 /min Respiratory Rate 14 /min Weight 192.25 lb Weight 87.205 kg Height 69.25 inches 5'9.25" BMI (Body Mass Index) 28.2 kg/m2 [place] Body Weight 160 lb 03/18/2023 10:16am BP Systolic 132 mmHg BP Diastolic 84 mmHg Body Temperature 100.4 F Heart Rate 98 /min Respiratory Rate 14 /min Weight 194.38 lb Weight 88.168 kg Results Test Acquired Date Facility Test Result H/L Range N ote Laboratory test finding 02/17/2023 [facility] [address] [place], [place] [id number] Total Testoster 532 ng/dL 199-1586 1 CBC W/Diff 02/17/2023 [facility] [address] [place] [address] WBC 6.1 10^3/M3 3.1-9.2 RBC 4.99 10^6/M3 4.00-5.80 HGB 15.8 GR/DL 12.5-17.5 HCT 46.2 % 37.5-52.5 MCV 92.6 CUMICR 82.6-95.8 MCH 31.8 PICOGR 27.9-32.9 MCHC 34.3 % 32.6-35.4 RDW 13.5 % 11.4-14.6 PLT 248 10^3/M3 140-350 MPV 9.3 CUMICR 7.0-10.6 %Neut 45.9 % 40.0-75.0 %Lymph 41.5 % 17.0-45.0 %[place] 10.7 % 1.0-11.0 %Eos 1.3 % 0.0-6.0 %Baso 0.6 % 0.0-2.0 #Neut 2.8 10^3/M3 1.5-8.0 #Lymph 2.5 10^3/M3 0.8-3.2 #[place] 0.7 10^3/M3 0.0-0.8 #Eos 0.1 10^3/m3 0.0-0.4 #Baso 0.0 10^3/m3 0.0-0.2 Comp. Met 02/17/2023 [facility] [address] [place] [address] [phone] Glucose 102 mg/dL 70-110 BUN 13 mg/dL [...] GFR 71 ML/MIN/1.73SQM >60 Lipid 02/17/2023 [facility] 1 [place], [place] [address] [phone] Cholesterol 175 mg/dL 0-200 2 Triglyceride 71 mg/dL 0-150 3 HDLD 63 mg/dL See Comment 4 Measured LDL 97 mg/dL 0-130 5 Calc VLDL 14.2 mg/dL See Comment 6 Chol/HDL 2.8 RATIO See Comment 7 Non-HDL 112 mg/dL See Comment 8 PSA, Free And Total 11/25/2022 [facility] [place] [address] [phone] PSA, Total 0.5 ng/mL Normal < Or = 4.0 PSA, Free 0.2 ng/mL Normal PSA, % Free 40 %(calc) Normal >25 9 Laboratory test finding 11/25/2022 [facility] [place] [address] [phone] Clinical PDF Report [id number] SEE IMAGE Laboratory test finding 09/30/2022 [facility] [address] [place], [place] [id number] [phone] Total Testoster 845 ng/dL 199- 1586 10 CBC W/Diff 09/30/2022 [facility] [address] [place] [address] [phone] WBC 5.4 10^3/M3 3.1- 9.2 RBC 4.95 10^6/M3 4.00-5.80 HGB 15.5 GR/DL 12.5-17.5 HCT 46.3 % 37.5-52.5 MCV 93.4 CUMICR 82.6-95.8 MCH 31.2 PICOGR 27.9-32.9 MCHC 33.4 % 32.6-35.4 RDW 13.7 % 11.4-14.6 PLT 264 10^3/M3 140-350 MPV 9.2 CUMICR 7.0-10.6 %Neut 50.3 % 40.0-75.0 %Lymph 37.1 % 17.0-45.0 %[place] 11.0 % 1.0-11.0 %Eos 1.0 % 0.0-6.0 %Baso 0.6 % 0.0-2.0 #Neut 2.7 10^3/M3 1.5-8.0 #Lymph 2.0 10^3/M3 0.8-3.2 #[place] 0.6 10^3/M3 0.0-0.8 #Eos 0.1 10^3/m3 0.0-0.4 #Baso 0.0 10^3/m3 0.0-0.2 Comp. Met 09/30/2022 [facility] [address] [place] [address] [phone] Glucose 97 mg/dL 70-110 BUN 11 mg/dL [...] GFR 71 ML/MIN/1.73SQM >60 Lipid 09/30/2022 [facility] [address] [place] [address] [phone] Cholesterol 172 mg/dL 0-200 11 Triglyceride 66 [...] 30 93 9 (3)Joao et al.:BURTON 277: 9187-1485 (1996) (4)Timothyona et al.:BURTON 279: 3633-0379 (1997) (x)These estimates vary with age, ethnicity, [...] mind. PSA was performed using the Zechariah [place] Immunoassay method. Values obtained from different assay [...] Target Procedures Date Code Description Status 02/17/2023 12324 Venipuncture Routine Complet ed 02/17/2023 3079F PVRP Diastolic BP 80-89 MMHG Completed 02/17/2023 3074F PVRP Systolic BP <130 mmHg C ompleted 11/25/2022 39140 Venipuncture Routine Complet ed 09/30/2022 12701 Venipuncture Routine Complet ed 09/30/2022 3079F PVRP Diastolic BP 80-89 MMHG Completed 09/30/2022 3075F PVRP Systolic BP 130 To 139 MMHG Completed 08/20/2021 [id number] Colonoscopy Completed Medical Devices Description No Information Available Encounters Type Date Location Provider Dx Diagnosis Office Visit 03/26/2023 3:30p [facility] Jose Miller, DO R22.32 Localized swelling, mass and lump, left upper limb M79.642 Pain in left hand Office Visit 03/18/2023 10:30a [facility] Liliana Alanis PA-C U07.1 Covid-19 Office Visit 02/17/2023 8:30a [facility] Jose Milelr, DO N40.1 Benign prostatic hyperplasia with lower urinary tract symp 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 Essential (primary) hypertension E78.2 Mixed hyperlipidemia M51.36 Other intervertebral disc degeneration, lumbar region G90.09 Other idiopathic per ipheral autonomic neuropathy K21.9 Gastro-esophageal re flux disease without esophagitis K80.20 Calculus of gallblad fior w/o cholecystitis w/o obstruction Office Visit 09/30/2022 8:45a [facility] Jose Miller, DO E29.1 Testicular [...] K21.9 Gastro-esophagea l reflux disease without esophagitis Jsoe Miller, DO 02/17/2023 K80.20 Calculus of gall bladder without cholecystitis without obstruction Jose Miller, DO 11/25/2022 N40.1 Benign prostatic hyperplasia with lower urinary tract symptoms Jose Miller, DO 11/25/2022 N40.1 Benign prostatic hyperplasia with lower urinary tract symptoms Lab [facility] [place] 11/25/2022 N13.8 Other obstructive and reflux uropathy Jose Miller, DO 11/25/2022 N13.8 Other obstructive and reflux uropathy [facility] [place] 09/30/2022 E29.1 Testicular hypofunction Bryce martell Latesha [...] am - Jose Miller DO at [facility] 03/26/2023 - Jose Miller DO* R22.32 [...]
--- OUTSIDE RECORDS SUMMARY | 2023-06-21 15:56 | External Medical Summary ---
Author Name Unknown Address Unknown Organization K1C:[facility] [address] [place] [address] Laboratory Report Ordering Provider Test Date Status ROSARIO ESPITIA 02/17/2023 09:02 Final Observation Date Value Abnormality Reference (Units ) Status Testosterone [Mass/volume] in Serum or Plasma 02/17/2023 15:19 589 552-1694 (ng/dL) Final Performing Location [facility] [address] [place] [address]
--- OUTSIDE RECORDS SUMMARY | 2023-06-21 15:56 | External Medical Summary | Continuity of Care Document ---
Author Name Unknown Organization [employer] Address [address] [place] [address] Phone [phone] Problems Active Problems Provider Date Hyperlipidemia Shubham [...] Directed. 75units E29.1 Jose Miller, DO 3 Cyyuilbr65ptx/0.5ML Suspension Rec one inj intramuscular 1units Jose Miller, DO [address] Take 1 Capsule Daily 90caps K21.9 Jose Miller, DO 2 Tcyjbgrpnb84yu Tablets Take 1 Tablet Daily 90tabs I10 Jose Miller, DO 9 Aspir-8181mg Tablets DR 1 po qd Mayra Leal, DO 0 Travatan Z0.004% Solution Unknown 0 ProbioticCapsules 1 by mouth every day 30caps Jose Miller, DO 0 Tamsulosin HCL0.4mg Capsules Take 2 Capsules Daily 180caps N40.1 Jose Miller, DO 0 Bdcdwfeegio80oo Tablets Take 1 Tablet Daily 90tabs E78 .2 Jose Miller, DO 0 Icxfzhcoe9eb Tablets 1 tab po daily N40.1 Unkn own 0 Gaviscon Extra Xxsuzfks271-779az Chewtabs Unknown 0 Bgihvtmp925qa Capsules 1 capsule tid K80.20 Unk nown 0 Immunizations CPT Code Status Date Vaccine Lot # [id number] Given 12/26/2022 Shingrix 88601 Given 09/30/2022 Shingrix 70575 Given 03/06/2021 Moderna Sars-Co v-2 (Cov-19) vacc,100 mcg/ 0.5 mL 12Y+EMR Doc Only 21935 Given 08/28/2020 Moderna Sars-Co v-2 (Cov-19) vacc,100 mcg/ 0.5 mL 12Y+EMR Doc Only 67949 Given 07/31/2020 Moderna Sars-Co v-2 (Cov-19) vacc,100 mcg/ 0.5 mL 12Y+EMR Doc Only 23572 Given 07/14/2017 Tdap (Tetanus, diphtheria & acel. pertussis) Adacel or Boostrix [id number] 88865 Refused 02/17/2023 Influenza Vac, Split, Preservative Free High Dose Age 65 & > 69479 Refused 01/27/2022 Influenza Vac, Split, Preservative Free High Dose Age 65 & > 43577 Refused 01/27/2022 Pneumococcal Conjugate-Pr evnar 20 99471 Refused 01/23/2021 Influenza Vaccine High Do se 0.5ML Age 65 & > 82417 Refused 01/23/2021 Pneumococcal Conjugate-Pr evnar 13 20914 Refused 07/10/2020 Moderna Sars-Co v-2 (Cov-19) vacc,100 mcg/ 0.5 mL 12Y+EMR Doc Only 92625 Refused 11/29/2019 Influenza Virus Vaccine, Quadrivalent, Im Use 45739 Refused 10/15/2018 Influenza Virus Vaccine, Quadrivalent, Im Use 52357 Refused 11/27/2017 Influenza Virus Vaccine, Quadrivalent, Im Use 84093 Refused 11/10/2016 Influenza Virus Vaccine, Quadrivalent, Im Use 60461 Refused 02/04/2016 Influenza Virus Vaccine, Quadrivalent, Im Use 26461 Refused 02/02/2015 Influenza Virus Vaccine, Quadrivalent, Im Use 81654 Refused 04/25/2014 Influenza Virus Vaccine, Quadrivalent, Im Use 67392 Refused 01/27/2014 Influenza Virus Vaccine, Quadrivalent, Im Use Vital Signs Date Vital Result Comment 02/17/2023 8:31am BP Systolic 118 mmHg BP Diastolic 82 mmHg Body Temperature 97.3 F Heart Rate 79 /min Respiratory Rate 14 /min Weight 194.12 lb Weight 88.055 kg Height 69.25 inches 5'9.25" BMI (Body Mass Index) 28.5 kg/m2 [place] Body Weight 160 lb 09/30/2022 8:34am BP Systolic 132 mmHg BP Diastolic 84 mmHg Body Temperature 97.3 F Heart Rate 88 /min Respiratory Rate 14 /min Weight 191.12 lb Weight 86.694 kg Height 69.25 inches 5'9.25" BMI (Body Mass Index) 28.0 kg/m2 [place] Body Weight 160 lb Results Test Acquired Date Facility Test Result H/L Range N ote Laboratory test finding 02/17/2023 [facility] [address] [place] [address] [phone] Total Testoster <pending> PSA, Free And Total 11/25/[address] [facility] [place] [address] [phone] PSA, Total 0.5 ng/mL Normal < Or = 4.0 PSA, Free 0.2 ng/mL Normal PSA, % Free 40 %(calc) Normal >25 1 Laboratory test finding 11/25/[address] [place] [address] [phone] Clinical PDF Report [id number] SEE IMAGE Laboratory test finding 09/30/2022 [facility] [address] [place] [address] [phone] Total Testoster 845 ng/dL 199-1 586 2 CBC W/Diff 09/30/2022 [facility] 1 [place], [place] [address] [phone] WBC 5.4 10^3/M3 3.1-9 .2 RBC 4.95 10^6/M3 4.00-5.80 HGB 15.5 GR/DL 12.5-17.5 HCT 46.3 % 37.5-52.5 MCV 93.4 CUMICR 82.6-95.8 MCH 31.2 PICOGR 27.9-32.9 MCHC 33.4 % 32.6-35.4 RDW 13.7 % 11.4-14.6 PLT 264 10^3/M3 140-350 MPV 9.2 CUMICR 7.0-10.6 %Neut 50.3 % 40.0-75.0 %Lymph 37.1 % 17.0-45.0 %[place] 11.0 % 1.0-11.0 %Eos 1.0 % 0.0-6.0 %Baso 0.6 % 0.0-2.0 #Neut 2.7 10^3/M3 1.5-8.0 #Lymph 2.0 10^3/M3 0.8-3.2 #[place] 0.6 10^3/M3 0.0-0.8 #Eos 0.1 10^3/m3 0.0-0.4 #Baso 0.0 10^3/m3 0.0-0.2 Comp. Met 09/30/2022 [facility] [address] [place] [address] [phone] Glucose 97 mg/dL 70-110 BUN 11 mg/dL [...] 2.0-3.4 GFR 71 ML/MIN/1.73SQM >60 Lipid 09/30/2022 [facility] [address] [place] [address] [phone] Cholesterol 172 mg/dL 0-200 3 Triglyceride 66 mg/dL 0-150 4 HDLD 60 mg/dL See Comment 5 Measured LDL 120 mg/dL 0-130 6 Calc VLDL 13.2 mg/dL See Comment 7 Chol/HDL 2.9 RATIO See Comment 8 Non-HDL 112 mg/dL See Comment 9 1 PSA(ng/mL) Free PSA( %) Estimated(x) Probability of Cancer(as%) 0-2.5 (*) Approx. 1 2.6-4.0(1) 0-27(2) 24(3) 4.1-10(4) 0-10 56 11-15 28 16-20 20 21-25 16 >or =26 8 >10(+) N/A >50 References:(1)Joao et al.:Urology 60: 469-474 (2001) (2)Joao et al.:J.Urol 168: 922-925 (2001) Free PSA(%) Sensitivity(%) Specificity(%) < or = 25 85 19 < or = 30 93 9 (3)Catalona et al.:BURTON 277: 6796-6640 (1996) (4)Catalona et al.:BURTON 279: 5960-0527 (1997) (x)These estimates vary with age, ethnicity, [...] mind. PSA was performed using the Zechariah [place] Immunoassay method. Values obtained from different assay methods cannot be used interchangeably. PSA levels, regardless of value, should not be interpreted as absolute evidence of the presence or absence of disease. 2 FASTING 3 CHOLESTEROL Less than 200mg/dl Low risk 201-239 mg/dl Borderline risk Equal to or greater 240mg/dl High risk 4 TRIGLYCERIDES Less than 150mg/dl Normal 150-199mg/dl Borderline 200-499mg/dl High Greater than 500mg/dl Very High 5 HDL <40mg/dl Elevated Risk 41-59mg/dl Risk >=60mg/dl Least Risk 6 LDL <100mg/dl Optimal 100-129mg/dl Near Optimal 130-159mg/dl Borderline High 160-189mg/dl High >=190 Very High 7 VLDL Less than 30mg/dl Normal 8 CHOL/HDL <4.0 Optimal 4.0-5.0 Borderline >6.0 High Risk 9 NON-HDL 30mg/dl higher than LDL Target Procedures Date Code Description Status 02/17/2023 52624 Venipuncture Routine Complet ed 02/17/2023 3079F PVRP Diastolic BP 80-89 MMHG Completed 02/17/2023 3074F PVRP Systolic BP <130 mmHg C ompleted 11/25/2022 13852 Venipuncture Routine Complet ed 09/30/2022 70422 Venipuncture Routine Complet ed 09/30/2022 3079F PVRP Diastolic BP 80-89 MMHG Completed 09/30/2022 3075F PVRP Systolic BP 130 To 139 MMHG Completed 08/20/2021 [id number] Colonoscopy Completed Medical Devices Description No Information Available Encounters Type Date Location Provider Dx Diagnosis Office Visit 02/17/2023 8:30a [facility] Jose Miller, DO N40.1 Benign prostatic hyperplasia with lower urinary tract symp 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 Essential (primary) hypertension E78.2 Mixed hyperlipidemia M51.36 Other intervertebral disc degeneration, lumbar region G90.09 Other idiopathic per ipheral autonomic neuropathy K21.9 Gastro-esophageal re flux disease without esophagitis K80.20 Calculus of gallblad fior w/o cholecystitis w/o obstruction Office Visit 09/30/2022 8:45a [facility] Jose Miller, DO E29.1 Testicular [...] hyperplasia with lower urinary tract symptoms Jose Miller DO 02/17/2023 E29.1 Testicular hypofunction Bryce Villalpandocz, DO 02/17/2023 I10 Essential (primary) hyperten terry [...] lower urinary tract symptoms [facility] - [facility] [place] 11/25/2022 N13.8 Other obstructive and reflux uropathy Jose Miller, DO 11/25/2022 N13.8 Other obstructive and reflux uropathy [facility] [place] 09/30/2022 E29.1 Testicular hypofunction Bryce martell Latesha Miller, DO 09/30/2022 N40.1 Benign prostatic hyperplasia with lower urinary tract symptoms Jose Miller, DO 09/30/2022 I10 Essential (primary) hyperten terry Jose Miller, DO 09/30/2022 E78.2 Mixed hyperlipidemia Jose Miller, DO 09/30/2022 K21.9 Gastro-esophagea l reflux disease without esophagitis Jose Miller, DO 09/30/2022 M51.36 Other interverte bral disc degeneration, lumbar region Jose Millre, DO 09/30/2022 G90.09 Other idiopathic peripheral autonomic neuropathy Jose Miller, DO 09/30/2022 K80.20 Calculus of gall bladder without cholecystitis without obstruction Jose Miller DO Plan of Treatment Future Appointment(s):* 06/30/2023 9:00 am - Jose Miller DO at [facility] 02/17/2023 - Jose Miller, DO* N40.1 Benign prostatic hyperplasia with lower [...]
--- OUTSIDE RECORDS SUMMARY | 2023-06-21 15:56 | External Medical Summary | Continuity of Care Document ---
Author Name Unknown Organization [employer] Address [address] [place] [address] Phone [phone] Problems Active Problems Provider Date Hyperlipidemia Shubham [...] Directed. 75units E29.1 Jose Miller, DO 3 Beeimjjf19jtm/0.5ML Suspension Rec one inj intramuscular 1units Jose Miller, DO [address] Take 1 Capsule Daily 90caps K21.9 Jose Miller, DO 2 Gsvnfzwhnf84qt Tablets Take 1 Tablet Daily 90tabs I10 Jose Miller, DO 9 Aspir-8181mg Tablets DR 1 po qd Mayra Leal, DO 0 Travatan Z0.004% Solution Unknown 0 ProbioticCapsules 1 by mouth every day 30caps Jose Miller, DO 0 Tamsulosin HCL0.4mg Capsules Take 2 Capsules Daily 180caps N40.1 Jose Miller, DO 0 Odytfxkxiuo24dw Tablets Take 1 Tablet Daily 90tabs E78 .2 Jose Miller, DO 0 Gpgagegph8sv Tablets 1 tab po daily N40.1 Unkn own 0 Gaviscon Extra Bqctwkaw259-551fc Chewtabs Unknown 0 Avkhxcsq687qw Capsules 1 capsule tid K80.20 Unk nown 0 Immunizations CPT Code Status Date Vaccine Lot # [id number] Given 12/26/2022 Shingrix 15510 Given 09/30/2022 Shingrix 69140 Given 03/06/2021 Moderna Sars-Co v-2 (Cov-19) vacc,100 mcg/ 0.5 mL 12Y+EMR Doc Only 63905 Given 08/28/2020 Moderna Sars-Co v-2 (Cov-19) vacc,100 mcg/ 0.5 mL 12Y+EMR Doc Only 57640 Given 07/31/2020 Moderna Sars-Co v-2 (Cov-19) vacc,100 mcg/ 0.5 mL 12Y+EMR Doc Only 39632 Given 07/14/2017 Tdap (Tetanus, diphtheria & acel. pertussis) Adacel or Boostrix [id number] 56266 Refused 02/17/2023 Influenza Vac, Split, Preservative Free High Dose Age 65 & > 38873 Refused 01/27/2022 Influenza Vac, Split, Preservative Free High Dose Age 65 & > 35640 Refused 01/27/2022 Pneumococcal Conjugate-Pr evnar 20 63192 Refused 01/23/2021 Influenza Vaccine High Do se 0.5ML Age 65 & > 35447 Refused 01/23/2021 Pneumococcal Conjugate-Pr evnar 13 16760 Refused 07/10/2020 Moderna Sars-Co v-2 (Cov-19) vacc,100 mcg/ 0.5 mL 12Y+EMR Doc Only 27978 Refused 11/29/2019 Influenza Virus Vaccine, Quadrivalent, Im Use 31838 Refused 10/15/2018 Influenza Virus Vaccine, Quadrivalent, Im Use 23869 Refused 11/27/2017 Influenza Virus Vaccine, Quadrivalent, Im Use 36241 Refused 11/10/2016 Influenza Virus Vaccine, Quadrivalent, Im Use 79892 Refused 02/04/2016 Influenza Virus Vaccine, Quadrivalent, Im Use 36229 Refused 02/02/2015 Influenza Virus Vaccine, Quadrivalent, Im Use 54603 Refused 04/25/2014 Influenza Virus Vaccine, Quadrivalent, Im Use 37974 Refused 01/27/2014 Influenza Virus Vaccine, Quadrivalent, Im Use Vital Signs Date Vital Result Comment 02/17/2023 8:31am BP Systolic 118 mmHg BP Diastolic 82 mmHg Body Temperature 97.3 F Heart Rate 79 /min Respiratory Rate 14 /min Weight 194.12 lb Weight 88.055 kg Height 69.25 inches 5'9.25" BMI (Body Mass Index) 28.5 kg/m2 [place] Body Weight 160 lb 09/30/2022 8:34am BP Systolic 132 mmHg BP Diastolic 84 mmHg Body Temperature 97.3 F Heart Rate 88 /min Respiratory Rate 14 /min Weight 191.12 lb Weight 86.694 kg Height 69.25 inches 5'9.25" BMI (Body Mass Index) 28.0 kg/m2 [place] Body Weight 160 lb Results Test Acquired Date Facility Test Result H/L Range N ote Laboratory test finding 02/17/2023 [facility] [address] [place] [address] [phone] Total Testoster <pending> PSA, Free And Total 11/25/[address] [facility] [place] [address] [phone] PSA, Total 0.5 ng/mL Normal < Or = 4.0 PSA, Free 0.2 ng/mL Normal PSA, % Free 40 %(calc) Normal >25 1 Laboratory test finding 11/25/2022 [facility] [place] [address] [phone] Clinical PDF Report [id number] SEE IMAGE Laboratory test finding 09/30/2022 [facility] [address] [place] [address] [phone] Total Testoster 845 ng/dL 199-1 586 2 CBC W/Diff 09/30/2022 [facility] [address] [place], [place] [address] [phone] WBC 5.4 10^3/M3 3.1-9 .2 RBC 4.95 10^6/M3 4.00-5.80 HGB 15.5 GR/DL 12.5-17.5 HCT 46.3 % 37.5-52.5 MCV 93.4 CUMICR 82.6-95.8 MCH 31.2 PICOGR 27.9-32.9 MCHC 33.4 % 32.6-35.4 RDW 13.7 % 11.4-14.6 PLT 264 10^3/M3 140-350 MPV 9.2 CUMICR 7.0-10.6 %Neut 50.3 % 40.0-75.0 %Lymph 37.1 % 17.0-45.0 %[place] 11.0 % 1.0-11.0 %Eos 1.0 % 0.0-6.0 %Baso 0.6 % 0.0-2.0 #Neut 2.7 10^3/M3 1.5-8.0 #Lymph 2.0 10^3/M3 0.8-3.2 #[place] 0.6 10^3/M3 0.0-0.8 #Eos 0.1 10^3/m3 0.0-0.4 #Baso 0.0 10^3/m3 0.0-0.2 Comp. Met 09/30/2022 [facility] [address] [place] [address] [phone] Glucose 97 mg/dL 70-110 BUN 11 mg/dL [...] 2.0-3.4 GFR 71 ML/MIN/1.73SQM >60 Lipid 09/30/2022 [facility] [address] [place] [address] [phone] Cholesterol 172 mg/dL 0-200 3 Triglyceride 66 [...] 30 93 9 (3)Catalona et al.:BURTON 277: 5174-9290 (1996) (4)Catalona et al.:BURTON 279: 2994-8437 (1997) (x)These estimates vary with age, ethnicity, [...] mind. PSA was performed using the Zechariah [place] Immunoassay method. Values obtained from different assay [...] Target Procedures Date Code Description Status 02/17/2023 33383 Venipuncture Routine Complet ed 02/17/2023 3079F PVRP Diastolic BP 80-89 MMHG Completed 02/17/2023 3074F PVRP Systolic BP <130 mmHg C ompleted 11/25/2022 08792 Venipuncture Routine Complet ed 09/30/2022 42723 Venipuncture Routine Complet ed 09/30/2022 3079F PVRP Diastolic BP 80-89 MMHG Completed 09/30/2022 3075F PVRP Systolic BP 130 To 139 MMHG Completed 08/20/2021 [id number] Colonoscopy Completed Medical Devices Description No Information Available Encounters Type Date Location Provider Dx Diagnosis Office Visit 02/17/2023 8:30a [facility] Jose Miller, DO N40.1 Benign prostatic hyperplasia with lower urinary tract symp 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 Essential (primary) hypertension E78.2 Mixed hyperlipidemia M51.36 Other intervertebral disc degeneration, lumbar region G90.09 Other idiopathic per ipheral autonomic neuropathy K21.9 Gastro-esophageal re flux disease without esophagitis K80.20 Calculus of gallblad fior w/o cholecystitis w/o obstruction Office Visit 09/30/2022 8:45a [facility] Jose Miller, DO E29.1 Testicular [...] of gall bladder without cholecystitis without obstruction Jsoe Miller, DO 11/25/2022 N40.1 Benign prostatic hyperplasia with lower urinary tract symptoms Jose Miller, DO 11/25/2022 N40.1 Benign prostatic hyperplasia with lower urinary tract symptoms Lab - [facility] 11/25/2022 N13.8 Other obstructive and reflux uropathy Jose Miller, DO 11/25/2022 N13.8 Other obstructive and reflux uropathy Lab - [facility] Sargent 09/30/2022 E29.1 Testicular hypofunction Bryce martell Latesha [...] - Jose Miller DO at [facility] 02/17/2023 - Jose Miller, DO* [...]
--- OUTSIDE RECORDS SUMMARY | 2023-06-21 15:56 | External Medical Summary | Continuity of Care Document ---
Author Name Unknown Organization [facility] Address [address] [place] [address] Phone [phone] Problems Active Problems Provider Date Hyperlipidemia Shubham [...] Directed. 75units E29.1 Jose Miller, DO 3 Ulgnkphq40cke/0.5ML Suspension Rec one inj intramuscular 1units Jose Miller, DO [address] Take 1 Capsule Daily 90caps K21.9 Jose Miller, DO 2 Tnletednrr54nj Tablets Take 1 Tablet Daily 90tabs I10 Jose Miller, DO 9 Aspir-8181[address] Table[address] DR 1 po qd Mayra Leal, DO 0 Travatan Z0.004% Solution Unknown 0 ProbioticCapsules 1 by mouth every day 30caps Jose Miller, DO 0 Tamsulosin HCL0.4mg Capsules Take 2 Capsules Daily 180caps N40.1 Jose Miller, DO 0 Odawmfbfndp43mg Tablets Take 1 Tablet Daily 90tabs E78 .2 Jose Miller, DO 0 Enqwcsgao4ec Tablets 1 tab po daily N40.1 Unkn own 0 Gaviscon Extra [id number] Chewtabs Unknown 0 Dlglvqmd680xe Capsules 1 capsule tid K80.20 Unk nown 0 Immunizations CPT Code Status Date Vaccine Lot # [id number] Given 12/26/2022 Shingrix 86900 Given 09/30/2022 Shingrix 27908 Given 03/06/2021 Moderna Sars-Co v-2 (Cov-19) vacc,100 mcg/ 0.5 mL 12Y+EMR Doc Only 27213 Given 08/28/2020 Moderna Sars-Co v-2 (Cov-19) vacc,100 mcg/ 0.5 mL 12Y+EMR Doc Only 49798 Given 07/31/2020 Moderna Sars-Co v-2 (Cov-19) vacc,100 mcg/ 0.5 mL 12Y+EMR Doc Only 12618 Given 07/14/2017 Tdap (Tetanus, diphtheria & acel. pertussis) Adacel or Boostrix [id number] Refused 02/17/2023 Influenza Vac, Split, Preservative Free High Dose Age 65 & > 24729 Refused 01/27/2022 Influenza Vac, Split, Preservative Free High Dose Age 65 & > 43205 Refused 01/27/2022 Pneumococcal Conjugate-Pr evnar 20 68118 Refused 01/23/2021 Influenza Vaccine High Do se 0.5ML Age 65 & > 81776 Refused 01/23/2021 Pneumococcal Conjugate-Pr evnar 13 53432 Refused 07/10/2020 Moderna Sars-Co v-2 (Cov-19) vacc,100 mcg/ 0.5 mL 12Y+EMR Doc Only 57236 Refused 11/29/2019 Influenza Virus Vaccine, Quadrivalent, Im Use 68649 Refused 10/15/2018 Influenza Virus Vaccine, Quadrivalent, Im Use 49704 Refused 11/27/2017 Influenza Virus Vaccine, Quadrivalent, Im Use 88548 Refused 11/10/2016 Influenza Virus Vaccine, Quadrivalent, Im Use 16129 Refused 02/04/2016 Influenza Virus Vaccine, Quadrivalent, Im Use 05436 Refused 02/02/2015 Influenza Virus Vaccine, Quadrivalent, Im Use 09932 Refused 04/25/2014 Influenza Virus Vaccine, Quadrivalent, Im Use 47305 Refused 01/27/2014 Influenza Virus Vaccine, Quadrivalent, Im Use Vital Signs Date Vital Result Comment 02/17/2023 8:31am BP Systolic 118 mmHg BP Diastolic 82 mmHg Body Temperature 97.3 F Heart Rate 79 /min Respiratory Rate 14 /min Weight 194.12 lb Weight 88.055 kg Height 69.25 inches 5'9.25" BMI (Body Mass Index) 28.5 kg/m2 Pollock Body Weight 160 lb 09/30/2022 8:34am BP Systolic 132 mmHg BP Diastolic 84 mmHg Body Temperature 97.3 F Heart Rate 88 /min Respiratory Rate 14 /min Weight 191.12 lb Weight 86.694 kg Height 69.25 inches 5'9.25" BMI (Body Mass Index) 28.0 kg/m2 Pollock Body Weight 160 lb Results Test Acquired Date Facility Test Result H/L Range N [place] Laboratory test finding 02/17/2023 [facility] [address] [place], [place] [id number] Total Testoster 532 ng/dL 199-1586 1 CBC W/Diff 02/17/2023 [facility] [address] [place], [place] [id number] [phone] WBC 6.1 10^3/M3 3.1-9.2 RBC 4.99 10^6/M3 4.00-5.80 HGB 15.8 GR/DL 12.5-17.5 HCT 46.2 % 37.5-52.5 MCV 92.6 CUMICR 82.6-95.8 MCH 31.8 PICOGR 27.9-32.9 MCHC 34.3 % 32.6-35.4 RDW 13.5 % 11.4-14.6 PLT 248 10^3/M3 140-350 MPV 9.3 CUMICR 7.0-10.6 %Neut 45.9 % 40.0-75.0 %Lymph 41.5 % 17.0-45.0 %[place] 10.7 % 1.0-11.0 %Eos 1.3 % 0.0-6.0 %Bas[place] 0.6 % 0.0-2.0 #Neut 2.8 10^3/M3 1.5-8.0 #Lymph 2.5 10^3/M3 0.8-3.2 #[place] 0.7 10^3/M3 0.0-0.8 #Eos 0.1 10^3/m3 0.0-0.4 #Baso 0.0 10^3/m3 0.0-0.2 Comp. Met 02/17/2023 [facility] [address] [place] [address] [phone] Glucose 102 mg/dL 70-110 BUN 13 mg/dL [...] 2.0-3.4 GFR 71 ML/MIN/1.73SQM >60 Lipid 02/17/2023 [facility] [address] [place], [place] [id number] [phone] Cholesterol 175 mg/dL 0-200 2 Triglyceride 71 mg/dL 0-150 3 HDLD 63 mg/dL See Comment 4 Measured LDL 97 mg/dL 0-130 5 Calc VLDL 14.2 mg/dL See Comment 6 Chol/HDL 2.8 RATIO See Comment 7 Non-HDL 112 mg/dL See Comment 8 PSA, Free And Total 11/25/[address] [facility] [place] [address] [phone] PSA, Total 0.5 ng/mL Normal < Or = 4.0 PSA, Free 0.2 ng/mL Normal PSA, % Free 40 %(calc) Normal >25 9 Laboratory test finding 11/25/[address] [facility] [place] [address] [phone] Clinical PDF Report [id number] SEE IMAGE Laboratory test finding 09/30/2022 [facility] [address] [place], [place] [id number] [phone] Total Testoster 845 ng/dL 199- 1586 10 CBC W/Diff 09/30/2022 [facility] [address] [place], [place] [id number] [phone] WBC 5.4 10^3/M3 3.1- 9.2 RBC 4.95 10^6/M3 4.00-5.80 HGB 15.5 GR/DL 12.5-17.5 HCT 46.3 % 37.5-52.5 MCV 93.4 CUMICR 82.6-95.8 MCH 31.2 PICOGR 27.9-32.9 MCHC 33.4 % 32.6-35.4 RDW 13.7 % 11.4-14.6 PLT 264 10^3/M3 140-350 MPV 9.2 CUMICR 7.0-10.6 %Neut 50.3 % 40.0-75.0 %Lymph 37.1 % 17.0-45.0 %[place] 11.0 % 1.0-11.0 %Eos 1.0 % 0.0-6.0 %Bas[place] 0.6 % 0.0-2.0 #Neut 2.7 10^3/M3 1.5-8.0 #Lymph 2.0 10^3/M3 0.8-3.2 #[place] 0.6 10^3/M3 0.0-0.8 #Eos 0.1 10^3/m3 0.0-0.4 #Baso 0.0 10^3/m3 0.0-0.2 Comp. Met 09/30/2022 [facility] [address] [place] [address] [phone] Glucose 97 mg/dL 70-110 BUN 11 mg/dL [...] 2.0-3.4 GFR 71 ML/MIN/1.73SQM >60 Lipid 09/30/2022 [facility] [address] [place] [address] [phone] Cholesterol 172 mg/dL 0-200 11 Triglyceride 66 [...] 30 93 9 (3)Catalona et al.:BURTON 277: 6172-4751 (1996) (4)Catalona et al.:BURTON 279: 3834-8732 (1997) (x)These estimates vary with age, ethnicity, [...] Target Procedures Date Code Description Status 02/17/2023 35038 Venipuncture Routine Complet ed 02/17/2023 3079F PVRP Diastolic BP 80-89 MMHG Completed 02/17/2023 3074F PVRP Systolic BP <130 mmHg C ompleted 11/25/2022 98078 Venipuncture Routine Complet ed 09/30/2022 64939 Venipuncture Routine Complet ed 09/30/2022 3079F PVRP Diastolic BP 80-89 MMHG Completed 09/30/2022 3075F PVRP Systolic BP 130 To 139 MMHG Completed 08/20/2021 78793436 Colonoscopy Completed Medical Devices Description No Information Available Encounters Type Date Location Provider Dx Diagnosis Office Visit 02/17/2023 8:30a [facility] Jose Miller, DO N40.1 Benign prostatic hyperplasia with lower urinary tract symp 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 [place] [place] 11/25/2022 N13.8 Other obstructive and reflux uropathy Jose Miller, DO 11/25/2022 N13.8 Other obstructive and reflux uropathy Lab - [facility] [place] [place] 09/30/2022 E29.1 Testicular hypofunction Bryce martell Latesha [...] 9:00 am - Jose Miller DO at [facility] 02/17/2023 - Jose Miller DO* N40.1 Benign prostatic hyperplasia with lower [...]
--- OUTSIDE RECORDS SUMMARY | 2023-06-21 15:56 | External Medical Summary ---
Author Name Unknown Address Unknown Organization [facility]:[address] [place] [address] Laboratory Report Ordering Provider Test Date Status ROSARIO ESPITIA 02/17/2023 09:02 Final Observation Date Value Abnormality Reference (Units ) Status Cholesterol 02/17/2023 15:40 175 0-200 (MG/D L) Final CHOLESTEROL
Less than 2 00mg/dl Low risk
201-239 mg/dl Borderline risk
Equal to or greater 240mg/dl High risk Triglyceride 02/17/2023 15:40 71 0-150 (MG/ DL) Final TRIGLYCERIDES
Less than 150mg/dl Normal
150-199mg/dl Borderline
200-499mg/dl High
Greater than 500mg/dl Very High HDL 02/17/2023 15:40 63 SEE COMMENT ( MG/DL) Final HDL
<40mg/dl Elevated R isk
41-59mg/dl Risk
>=60mg/dl Least Risk Cholesterol in LDL [Mass/vol ume] in Serum or Plasma 02/17/2023 15:40 97 0-130 (MG/DL) Final LDL
<100mg/dl Optimal<b r/> 100-129mg/dl Near Optimal
130-159mg/dl Borderline High
160-189mg/dl High
>=190 Very High Cholesterol in VLDL [Mass/vo lume] in Serum or Plasma 02/17/2023 15:40 14.2 SEE COMMENT (MG/DL ) Final VLDL
Less than 30mg/dl Normal HDL 02/17/2023 15:40 2.8 SEE COMMENT ( RATIO) Final CHOL/HDL
<4.0 Optimal<b r/> 4.0-5.0 Borderline
>6.0 High Risk NON-HDL 02/17/2023 15:40 112 SEE COMMENT ( MG/DL) Final NON-HDL
30mg/dl higher than LDL Target Performing Location [facility] [address] [place] [address]
--- OUTSIDE RECORDS SUMMARY | 2023-06-21 15:56 | External Medical Summary ---
Author Name Unknown Address Unknown Organization [facility]:[address] [place] [address] Laboratory Report Ordering Provider Test Date Status ROSARIO ESPITIA 02/17/2023 09:02 Final Observation Date Value Abnormality Reference (Units ) Status WBC 02/17/2023 17:38 6.1 3.1-9.2 (10^3 /M3) Final RBC 02/17/2023 17:38 4.99 4.00-5.80 (10 ^6/M3) Final Hemoglobin 02/17/2023 17:38 15.8 12.5-17.5 (G R/DL) Final HCT 02/17/2023 17:38 46.2 37.5-52.5 (%) Final MCV 02/17/2023 17:38 92.6 82.6-95.8 (CU MICR) Final MCH 02/17/2023 17:38 31.8 27.9-32.9 (PI CO GR) Final MCHC 02/17/2023 17:38 34.3 32.6-35.4 (%) Final RDW 02/17/2023 17:38 13.5 11.4-14.6 (%) Final PLT 02/17/2023 17:38 248 140-350 (10^3 /M3) Final MPV 02/17/2023 17:38 9.3 7.0-10.6 (CU MICR) Final Neutrophils/100 leukocytes in Blood 02/17/2023 17:38 45.9 40.0-75.0 (%) Fin al Lymphs % 02/17/2023 17:38 41.5 17.0-45.0 (%) Final Monos 02/17/2023 17:38 10.7 1.0-11.0 (%) Final %EOS 02/17/2023 17:38 1.3 0.0-6.0 (%) F inal Basos 02/17/2023 17:38 0.6 0.0-2.0 (%) F inal Neutrophils [#/volume] in Sem[place] by Manual count 02/17/2023 17:38 2.8 1.5-8.0 (10^ 3/M3) Final Lymphs % 02/17/2023 17:38 2.5 0.8-3.2 (10^3 /M3) Final Monos 02/17/2023 17:38 0.7 0.0-0.8 (10^3 /M3) Final #EOS 02/17/2023 17:38 0.1 0.0-0.4 (10^3 /m3) Final #BASO 02/17/2023 17:38 0.0 0.0-0.2 (10^3 /m3) Final Performing Location [facility] [address] [place] [address]
[2023-06-21] MEDS: ursodioL 300 MG CAP PO SCH (17:15)
[2023-06-21] MEDS: lisinopril 40 MG TAB PO SCH (20:28)
[2023-06-21] MEDS: TRAVOPROST Z 0.004% OPH SOLN 2.5 ML BTL OPB SCH (20:28)
[2023-06-21] MEDS: TAMSULOSIN HCL 0.4 MG CAP PO SCH (20:29)
--- NOTE | 2023-06-21 23:09 | XCELERA ---
[id number]
--- NOTE | 2023-06-22 06:06 | Electrocardiogram Report ---
Test Reason : Blood Pressure : / mmHG Vent. Rate : 069 BPM Atrial Rate : 069 BPM P-R Int : 186 ms QRS Dur : 086 ms QT Int : 382 ms P-R-T Axes : 038 -08 008 degrees QTc Int : 409 ms Normal sinus rhythm Premature atrial complexes Minimal voltage criteria for LVH, may be normal variant ( R in aVL ) Borderline ECG No previous ECGs available Confirmed by Ankush Linda ([id number]) on 06/22/2023 6:06:16 AM Referred By: Confirmed By:Ankush Linda
[2023-06-22] MEDS: SIMVASTATIN 20 MG TAB PO SCH (08:57)
[2023-06-22 09:49] LABS: Basophils # (auto) 0.04 K/uL (0.00-0.20); Basophils % (auto) 0.7 %; Eosinophils # (auto) 0.13 K/uL (0.00-0.50); Eosinophils % (auto) 2.2 %; Hematocrit (blood only) 43.6 % (42.0-52.0); Hemoglobin 14.7 g/dl (14.0-18.0); Immature Granulocytes # (auto) 0.01 K/uL (0.01-0.20); Immature Granulocytes % (auto) 0.2 %; Lymphocytes # (auto) 2.19 K/uL (1.20-3.40); Lymphocytes % (auto) 36.7 %; Mean Corpuscular Hemoglobin 30.7 pg (25.0-34.0); Mean Corpuscular Hgb Conc 33.7 g/dL (32.0-36.0); Mean Platelet Volume 9.9 fL (9.4-12.4); Monocytes # (auto) 0.67 K/uL (0.11-0.59); Monocytes % (auto) 11.2 %; Neutrophils # (auto) 2.92 K/uL (1.40-6.50); Platelet Count 309 K/uL (130-400); RDW Coefficient of Variation 12.8 % (11.5-14.5); RDW Standard Deviation 42.8 fL (36.4-46.3); Red Blood Count 4.79 M/uL (4.70-6.10); White Blood Count 5.96 K/ul (4.8-10.8)
[2023-06-22 10:06] LABS: BUN Creatinine Ratio 11.4 (10-20); Calcium 9.4 mg/dl (8.6-10.3); Creatinine Clr Calc Pharmacy 71.4 ml/min; Est GFR (African American) 84.7 ml/min; Est GFR (Non-African American) 73.1 ml/min; Magnesium 2.2 mg/dl (1.7-2.4); Potassium 4.5 mmol/L (3.5-5.1)
--- NOTE | 2023-06-22 12:19 | Discharge Summary ---
Discharge Summary Date of Service June 22, 2023 Notes For Next Care Provider Needs 30-day cardiac event monitor Medication Changes From Visit None Admission HPI Per Admitting Provider Manolo Arguelles is a 68-year-old male who presents to the ER due to a syncopal episode. He was sitting at the table with his having breakfast when he started feeling lightheaded and close his arms on the table for a few seconds. When he lifted up his head he appeared clammy to his and he put his head down again. The next thing he knew he was waking up on the floor and does remember falling to the floor from his chair. He knew where he was but was unsure what happened. His reports she saw his eyes moving funny and he slid off the chair. They were at a [email or web address] match and skills trainer who knew first-aid checked for a carotid pulse and did not feel 1 therefore performed 4-5 chest compressions and the patient woke up. He currently feels back to his normal se lf. He was treated for a sinus infection 2 weeks ago with 10 days of antibiotics but feels like he completely recovered from this infection and no current respiratory, gastrointestinal, urinary symptoms. No significant history of syncopal events. His sodium is 129 in the emergency room. He reports this is not unusual for him but has no specific diagnosis explaining his hyponatremia but reports it is chronic usually running around low 130s. Principal Dx & Hospital Course #1 = Principal Diagnosis (1) Syncope and collapse: Presented with syncope that occurred while sitting down while attending a [employer] match. He did have a prodrome with diaphoresis, lightheadedness, followed by passing out. He did not have any trauma and was slowly lowered to the ground. He had very brief chest compressions performed on him as a pulse could not be obtained but he quickly woke up on his own and I doubt he truly had cardiac arrest. Serial troponins negative x 2, transthoracic echocardiogram is normal. No events on telemetry here and EKG is normal. Chest x-ray negative. Sodium was slightly low at 129 below his baseline of 131 and perhaps he was slightly dehydrated on his chronic hyponatremia. Hemoglobin normal range, renal function normal, TSH is normal. Carotid Doppler performed here is negative Orthostatic vital signs are negative Suspect mild dehydration on top of chronic venous stasis left greater than right and high doses of tamsulosin all contributed to orthostasis He received 1 L of normal saline in the ER and is feeling much improved. Advised to wear compression stockings, consider lowering the dose of tamsulosin after discussion with urology 30-day cardiac event monitor recommended just to look for arrhythmias as a cause of his symptoms Stable for discharge to home, no driving until seen by PCP Advised to lie flat if he feels lightheaded again so he does not fall and injure himself (2) Cardiac arrest: Low probability of true cardiac arrest as mentioned above (3) Hyponatremia: Na 129, patient reports he is typically around 131 Perhaps slightly dehydrated on top of chronic hyponatremia which seems to be from reset osmostat? 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 Plan VTE prophylaxis - low risk Disposition-stable for discharge to home with close follow-up with PCP Discussed care with at the bedside Discharge Exam Constitutional WD/WN, vitals as above Eyes PERRL, conjunctivae normal, anicteric sclerae ENMT external ear and nose normal, oropharynx normal Neck trachea midline, no thyromegaly Respiratory normal respiratory effort, lungs clear to auscultation Cardiovascular Rate/Rhythm: regular rate and regular rhythm Heart Sounds: no murmur Vessels: no carotid bruit Extremities: + edema (Trace edema left greater than right ankle and leg) Chest (Breasts) Chest: normal inspection of chest Gastrointestinal (Abdomen) normal bowel sounds, soft, nontender, no hepatosplenomegaly Musculoskeletal Extremities: extremities normal to inspection; no cyanosis and no clubbing Skin no rashes, warm and dry Neurologic moves all extremities and awake; no focal motor deficits Psychiatric A+Ox3, euthymic affect Updated Medication List Medication Instructions Recorded Confirmed Type lactobacillus combination no.4 3 3,000 mmu cells PO QAM 06/21/23 06/21/23 History billion cell capsule (Probiotic) lisinopril 40 mg tablet 40 mg PO HS 06/21/23 06/21/23 History simvastatin 20 mg tablet 20 mg PO QAM 06/21/23 06/21/23 History tamsulosin 0.4 mg capsule 0.8 mg PO HS 06/21/23 06/21/23 History testosterone 2 pump topical QAM 06/21/23 06/21/23 History travoprost 0.004 % eye drops 1 drp OPB HS 06/21/23 06/21/23 History ursodiol 300 mg capsule 300 mg PO TID 06/21/23 06/21/23 History Hospital Stay Data Consultations 06/21/23 12:42 ED Decision to Admit Stat Diagnostic Imagining Performed 06/22/23 10:50 Carotid duplex [US carotid doppler BI] Urgent Echocardiogram Pending Results Patient Have Any Pending Studies at Discharge: No Discharge Instructions Given to Patient (Per Discharging Provider) You were admitted after passing out. You had a normal cardiac workup to include ECG, Echocardiogram, and had blood tests to rule out a heart attack. You had a normal heart rhythm on the heart monitor while in the hospital, but it is recommended that you discuss with your PCP about getting a 30 day hear monitor to wear after discharge. You had a normal carotid ultrasound as well. This probably was an episode of orthostasis perhaps related to some dehydration (as evidenced by your lower than usual sodium level at 129), stress, lack of restful sleep lately, and secondary to your tamsulosin. You can wear compression stockings to help with this and drink some salty fluids in your diet, carefully monitoring your blood pressures. You could also consider decreasing the dose of your tamsulosin after a discussion with your PCP. Total Time Total Time Spent Total Time Spent (In Minutes): 45 minutes Total Time Includes: Examination of the Patient, Discharge Planning and Medication Reconciliation Coding Level of Care Code 48643 INP/OBS DISCH >30 MIN Diagnoses Syncope and collapse R55 Cardiac arrest I46.9 Hyponatremia E87.1 Hypertension I10 Hypercholesteremia E78.00 BPH (benign prostatic hyperplasia) N40.0 Hypotestosteronism E34.9 Ocular hypertension H40.059 Idiopathic small fiber sensory neuropathy G60.8
--- NOTE | 2023-06-22 13:25 | Ultrasound Report ---
US carotid doppler BI CLINICAL HISTORY: 68 years-old Male with syncope,assess for LIOR. Acute syncope COMPARISON: None TECHNIQUE: Multiple real time sonographic images of the carotid bifurcations were obtained assessing agustin scale, color Doppler and spectral wave form appearance FINDINGS: RIGHT CAROTID: The peak systolic velocity measurements in the right ICA is 75 cm/sec. The end diast olic velocity measured 27 cm/sec. The ICA to CCA ratio measured 0.6 which correlates with a stenosis of 0-50%. Mild atherosclerosis. LEFT CAROTID: The peak systolic velocity measured within the left ICA is 76 cm/sec. The end diastol ic velocity measured 25 cm/sec. The ICA to CCA ratio measured 0.7 which correlates with a stenosis of 0-50%. Moderate atherosclerosis There is normal antegrade vertebral flow bilaterally. IMPRESSION: 1. Mild atherosclerosis without hemodynamically significant stenosis. 2. Normal antegrade vertebral flow bilaterally. ACT 112: Negative or not required by law. The above report was generated using voice recognition software. It may contain grammatical, syntax o r spelling errors. Electronically signed by: James Armenta M.D. 06/22/2023 1:24 PM
== END 2023-06-22 14:07 | disposition home or self-care (01) | DRG 641 ==
LOC: ED 10:49 → SUATTDRO 13:23 → INTOOBSV 13:23 → 2S 13:23